=== PATIENT | female | born 1955 | race Caucasian/White ===

== ENCOUNTER → 2017-05-17 12:16 | Outpatient (CLI) | payer OTHER, SELFPAY ==
--- NOTE | 2017-05-17 12:19 | US_ITS ---
STUDY: ULTRASOUND OF THE FEMALE PELVIS - COMPLETE REASON FOR EXAM: Female, 62 years old. Left lower quadrant pain. LMP: The patient is postmenopausal. TECHNIQUE: Transabdominal and Transvaginal TECHNICAL QUALITY: Adequate. COMPARISON: None. FINDINGS: The uterus is anteverted and is in a midline position. The uterus measures 5.8 cm x 3.8 cm x 2.5 cm. There is a large Nabothian cyst of the cervix measuring 2 cm x 2.6 cm x 1.2 cm.. The endometrium measures 1.1 mm in thickness, and is hyperechoic. There is no demonstrated endometrial mass. There is a small uterine fibroid measuring 9 mm x 10 mm x 8 mm. I.U.D. - The patient does not have an I.U.D. The right ovary is visualized. The right ovary measures 1.7 cm x 1.2 cm x 1.6 cm. A follicle is seen within the ovary measuring 1 cm x 1 cm x 0.7 cm. There is no visualized right adnexal mass or complex lesion. There is normal arterial and normal venous vascularity. The left ovary is visualized. The left ovary measures 1.8 cm x 1.9 cm x 1.5 cm. There is no left ovarian cyst or ovarian mass. There is no visualized left adnexal mass or complex lesion. There is normal arterial and normal venous vascularity. There is no fluid in the cul-de-sac. The pre void volume of the bladder was 680 ml. US/Pelvic (Non ) IMPRESSION: Large nabothian cyst. Small uterine fibroid. 1 cm x 1 cm x 0.7 cm right ovarian follicle. Electronically Signed: Kenny Loyola MD at 15:47 EST Tel [phone], Service support ,
--- NOTE | 2017-05-17 12:40 | US_ITS ---
STUDY: ULTRASOUND OF THE FEMALE PELVIS - COMPLETE REASON FOR EXAM: Female, 62 years old. Left lower quadrant pain. LMP: The patient is postmenopausal. TECHNIQUE: Transabdominal and Transvaginal TECHNICAL QUALITY: Adequate. COMPARISON: None. FINDINGS: The uterus is anteverted and is in a midline position. The uterus measures 5.8 cm x 3.8 cm x 2.5 cm. There is a large Nabothian cyst of the cervix measuring 2 cm x 2.6 cm x 1.2 cm.. The endometrium measures 1.1 mm in thickness, and is hyperechoic. There is no demonstrated endometrial mass. There is a small uterine fibroid measuring 9 mm x 10 mm x 8 mm. I.U.D. - The patient does not have an I.U.D. The right ovary is visualized. The right ovary measures 1.7 cm x 1.2 cm x 1.6 cm. A follicle is seen within the ovary measuring 1 cm x 1 cm x 0.7 cm. There is no visualized right adnexal mass or complex lesion. There is normal arterial and normal venous vascularity. The left ovary is visualized. The left ovary measures 1.8 cm x 1.9 cm x 1.5 cm. There is no left ovarian cyst or ovarian mass. There is no visualized left adnexal mass or complex lesion. There is normal arterial and normal venous vascularity. There is no fluid in the cul-de-sac. The pre void volume of the bladder was 680 ml. US/Transvaginal Non- IMPRESSION: Large nabothian cyst. Small uterine fibroid. 1 cm x 1 cm x 0.7 cm right ovarian follicle. Electronically Signed: Kenny Loyola MD at 15:47 EST Tel [phone], Service support ,
== END ==
PROVIDERS: Family Provider Family Medicine; PCP Family Medicine; Visit Provider Obstetrics & Gynecology
DX: R10.2 Pelvic and perineal pain (principal)
CPT/HCPCS: 76830; 76856

== ENCOUNTER → 2017-08-29 11:07 | Outpatient (CLI) | payer OTHER, SELFPAY ==
[2017-08-29 12:07] LABS: Hematocrit 39.9 % (37-47); Hemoglobin 13.3 g/dl (12.0-15.0); Mean Corp Hgb Conc 33.3 g/gl (32-36); Mean Corpuscular Hgb 30.5 pg (27.0-32.0); Mean Corpuscular Volume 91.5 fL (81-99); Mean Platelet Vol. 9.4 fl (6.2-12.0); Platelet Count 286 K/mm3 (150-450); RBC Distribution Width CV 12.7 % (11.6-14.6); RBC Distribution Width SD 41.9 fl (35.1-43.9); Red Blood Count 4.36 M/mm3 (4.2-5.4); White Blood Count 3.1 K/mm3 (4.4-11.0)
[2017-08-29 12:11] LABS: Scan Indicated on CBC? Y/N NO
[2017-08-29 13:28] LABS: AST(SGOT) 13 U/L (15-37); Alanine Aminotransfer ALT/SGPT 21 U/L (13-56); Albumin, Serum 3.8 g/dL (3.2-5.0); Alkaline Phosphatase 84 U/L (45-117); Anion Gap 8 (5-15); BUN 22 mg/dL (7-18); BUN/Creat Ratio 28.6 RATIO (10-20); Calcium,Total 9.1 mg/dL (8.5-10.1); Chloride 108 mmol/L (98-107); Cholesterol 227 mg/dL (200); Creatinine, Serum 0.77 mg/dL (0.55-1.02); EST Glomerular Filtration Rate 81 mL/min (>60); Est Glom Filt Rate - Afr Amer 98 mL/min (>60); Globulin 3.8 g/dL (2.2-4.2); Glucose 84 mg/dL (74-106); High Density Lipoprotein 54 mg/dL; Potassium 4.3 mmol/L (3.5-5.1); Protein, Total 7.6 g/dL (6.4-8.2); Sodium Level 141 mmol/L (136-145); Triglycerides 185 mg/dL; Very Low Density Lipoprotein 37 mg/dL (5-40)
== END ==
PROVIDERS: Family Provider Family Medicine; PCP Family Medicine; Visit Provider Family Medicine
DX: Z00.00 Encounter for general adult medical examination without abnormal findings (principal); R07.89 Other chest pain
CPT/HCPCS: 36415; 80053; 80061; 84443; 85027

== ENCOUNTER → 2017-10-01 11:56 | Outpatient (CLI) | payer OTHER, SELFPAY ==
--- NOTE | 2017-10-01 17:21 | STRESSREP ---
Stress Test Report Exercise stress test. 62-year-old lady with a history of chest pain. Medications Wellbutrin. Stress protocol resting EKG demonstrates sinus bradycardia with a rate of 55 bpm normal intervals and noted resting blood pressures 116/72 mmHg. The patient exercised according to regular Brad protocol for total duration of 5 minutes the maximum heart rate attained was 139 bpm which is 83% maximum predicted heart rate the maximum workload was 6.9 metabolic equivalents. The patient maintained sinus rhythm throughout the recording at rest there were no ST or T-wave changes noted suggest ischemia peak exercise upsloping ST changes only were noted with no meet the criteria for ischemia. The resting blood pressure is 116/72 with a peak blood pressure 146/70 mmHg. No clinical angina was noted the test was terminated due to leg fatigue there was dyspnea also noted. Conclusion 1 Stress test with no EKG criteria for ischemia at a moderate workload Marked shortness of breath.
== END ==
PROVIDERS: Family Provider Family Medicine; PCP Family Medicine; Visit Provider Family Medicine
DX: R07.89 Other chest pain (principal)
CPT/HCPCS: 93017

== ENCOUNTER 2018-04-10 07:37 | Day surgery (SDC) | payer OTHER, SELFPAY ==
[2018-04-08 16:21] VITALS: BMI 27.2
--- NOTE | 2018-04-09 10:20 | RAD_ITS ---
HISTORY: Short of Breath/Dyspnea EXAM:XR Chest 2 Views: COMPARISON: None FINDINGS: Normal heart size. Possible upper lobe emphysema.. No vascular congestion, pleural effusion, or acute pulmonary infiltration. No pneumothorax. The bony thorax appears intact. RAD/Chest PA and Lateral IMPRESSION: 1. No acute cardiopulmonary disease. 2. Possible upper lobe emphysema. at [id number] Reported and signed by: Stephen Martinez MD Electronically Signed: Stephen Martinez, at 4:38 EST Tel , Service support ,
--- NOTE | 2018-04-09 11:00 | ECHOD_ITS ---
Reason For Study: CP Procedure This was a 2D Doppler, Color Flow transthoracic echocardiogram. The study was technically difficult. Exam performed in department. Left Ventricle Normal LV size. Segmental dysfunction with preserved ejection fraction (see wall motion). The estimated ejection fraction is 55 %. No evidence for diastolic dysfunction. Mid-inferoseptal : Hypokinetic. Mid-anteroseptal : Hypokinetic. Right Ventricle Normal RV size. Normal systolic function. Atria The left atrium is mildly enlarged. Normal right atrium. No doppler evidence for ASD. Mitral Valve There is no mitral annular calcification. Normal mitral valve. Trivial mitral valve insufficiency. Tricuspid Valve Normal tricuspid valve. Mild tricuspid valve insufficiency. Right ventricular systolic pressure estimated to be 16 mmHg. Aortic Valve Trisinus/trileaflet aortic valve. Normal aortic valve. Trivial aortic valve insufficiency. Pulmonic Valve The pulmonic valve is not well visualized. Great Vessels Normal sized aortic root. Pericardium/Pleural No pericardial effusion. MMode/2D Measurements & Calculations LVIDd: 4.0 cm IVSd: 1.6 cm LA dimension: 3.6 cm LVIDs: 2.7 cm LVPWd: 0.96 cm RVDd: 3.8 cm FS: 33.0 % LAV(MOD-sp4): 66.4 ml LA A4 area: 21.6 cm2 RA A4 area: 17.1 cm2 Time Measurements MV dec time: 0.41 sec Doppler Measurements & Calculations MV E max blaine: 46.6 cm/sec Lat Peak E' Blaine: 5.6 cm/sec Med Peak E' Blaine: 5.9 cm/sec MV A max blaine: 66.3 cm/sec E/E' lat: 8.4 E/E' med: 7.8 MV E/A: 0.70 MV V2 max: 70.1 cm/sec MV P1/2t max blaine: 54.0 cm/sec Ao V2 max: 79.6 cm/sec MV max P.0 mmHg MV P1/2t: 152.2 msec Ao max P.5 mmHg MV V2 mean: 33.7 cm/sec MV dec slope: 104.0 cm/sec2 MV mean P.57 mmHg MVA(P1/2t): 1.4 cm2 MV V2 VTI: 30.0 cm LV V1 max: 67.9 cm/sec PA V2 max: 65.2 cm/sec TR max blaine: 181.3 cm/sec LV V1 max P.8 mmHg TR max P.1 mmHg Interpretation Summary The study was technically difficult. Segmental dysfunction with preserved ejection fraction (see wall motion). The estimated ejection fraction is 55 %. The left atrium is mildly enlarged. Trivial mitral valve insufficiency. Mild tricuspid valve insufficiency. Trivial aortic valve insufficiency. Right ventricular systolic pressure estimated to be 16 mmHg. No evidence for diastolic dysfunction. Ordering Physician: Otoniel Campbell Referring Physician: Otoniel Campbell Performed By: Davide Parikh RCS
[2018-04-09 11:10] LABS: Absolute Lymphocyte Count 1.66 X10^3/ul (0.83-4.51); Absolute Neutrophil Count 1.7 X10^3/uL (2.0-7.7); Basophil# 0.04 X10^3/uL; Eosinophil# 0.23 X10^3/uL; Eosinophils% 5.9 % (0-5); Hematocrit 41.5 % (37-47); Hemoglobin 13.3 g/dl (12.0-15.0); Lymphocyte # 1.66 X10^3/ul (4.0); Lymphocyte % 42.2 % (19-41); Mean Corpuscular Hgb 30.2 pg (27.0-32.0); Mean Corpuscular Volume 94.1 fL (81-99); Mean Platelet Vol. 9.7 fl (6.2-12.0); Monocyte# 0.32 X10^3/uL; Monocyte% 8.1 % (0-10); Neutrophil # 1.67 X10^3/uL (2.7-7.7); Neutrophil % 42.5 % (47-70); Platelet Count 270 K/mm3 (150-450); RBC Distribution Width CV 12.9 % (11.6-14.6); RBC Distribution Width SD 44.4 fl (35.1-43.9); Red Blood Count 4.41 M/mm3 (4.2-5.4); White Blood Count 3.9 K/mm3 (4.4-11.0)
[2018-04-09 11:15] LABS: POSITIVE COUNT NO; POSITIVE DIFFERENTIAL NO; POSITIVE MORPHOLOGY NO
[2018-04-09 11:18] LABS: International Normalized Ratio 0.9; Prothrombin Time (Protime)PT. 12.3 SECONDS (11.7-14.9)
[2018-04-09 11:19] LABS: Partial Thromboplast Time 26.9 Seconds (24.1-36.2)
[2018-04-09 11:30] LABS: Anion Gap 6 (5-15); BUN 23 mg/dL (7-18); BUN/Creat Ratio 21.9 RATIO (10-20); Calcium,Total 9.1 mg/dL (8.5-10.1); Chloride 104 mmol/L (98-107); Creatinine, Serum 1.05 mg/dL (0.55-1.02); EST Glomerular Filtration Rate 57 mL/min (>60); Est Glom Filt Rate - Afr Amer 69 mL/min (>60); Glucose 93 mg/dL (74-106); Potassium 4.6 mmol/L (3.5-5.1); Sodium Level 139 mmol/L (136-145)
[2018-04-09 12:43] VITALS: BMI 27.2
[2018-04-10] VITALS (21 sets, daily range): BP systolic 89–122; BP diastolic 46–81; PULSE 14–72; RESP 10–25; TEMP 36.5–36.6; O2SAT 95–100; BMI 27.3
[2018-04-10 10:36] LABS: ACT Activated Clotting Time 164 sec (74-137)
--- NOTE | 2018-04-10 10:46 | CL.I_ITS ---
Patient Name: GAL BOURGEOIS Study Date: 04/10/2018 Performing: Satinder Thompson MD Ht: 66.92 inches 170 cm : 1955 Wt: 174.17 lbs 79 kg Age: 63 Gender: female BSA: 1.91 PROCEDURE(S) PERFORMED [id number] W OR WO PTCA, SINGLE CORONARY ARTERY [id number], EACH ADD'L CORONARY ART, SAME MAJOR CLINICAL PROFILE AND CO-MORBIDITIES Indications: Worsening Angina, Suspected CAD, New Onset Angina <= 2 months, Suspected CAD Heart Failure: None Stress/Imaging Standard Exercise Stress Test: Yes Result: Negative Stress Test with SPECT MPI: Po sitive High Risk Angina Classification Anginal Classification w/in 2 Weeks: CCS IV CAD Presentations: Unstable angina. Unstable angina. Comorbidities/Risk Factors: Current/Recent Smoker (< 1year) Hypertension Dyslipidemia Chronic Lung Disease CONCLUSIONS Successful PTCA/OMER proximal/mid LAD with a 2.5 x 28 Promus Synergy, post dilated proximally with a 3 .5 x 12 NC Balloon; 90%-->0%, no dissection. Successful PCI with PTCA to the ostial/proximal DIAG#1 with a 2.0 x 12; 75%-->50%, no dissection. Wo uld hold off on bifurcating stents at this time given <50% residual stenosis, and challenges with acc essing LAD with second wire. RECOMMENDATIONS Highly recommend quitting all tobacco products Follow up with primary manager zone Risk factor modification ASA Indefinitley Plavix for at least 12 months Routine post interventional care Refer for Outpatient Cardiac Rehab Manual sheath removal per protocol Follow up with Dr. Campbell Medical management of mid RCA unless or until pt has recurrent symptoms or inferior ischemia. Successful Mynx closure. DESCRIPTION OF PROCEDURE The patient arrived to the procedure lab. The risks and benefits of the procedure as well as a full d escription of our services here and current unavailability of surgical backup were fully explained to the patient and/or their significant other prior to the catheterization. The Timeout was completed, verifying the correct patient and procedure. The patient's procedural site was prepped and draped in the usual fashion. Local anesthetic was given subcutaneously to right groin region with Lidocaine 2% Using a modified Seldinger technique,arterial access was obtained via the right femoral artery, a 4Fr sheath was inserted Left Coronary Artery selective angiography was performed in multiple views using a 4 Fr. JL5 catheter. Right Coronary Artery selective angiography was then performed in multiple vie ws using a 4 Fr. 3DRC catheter. Left Ventriculography was performed in GALEANO projection using a 4 Fr. P igtail catheter. LV to AO pullback pressures were then recorded.The images were reviewed and options discussed. A decision was then made to proceed with an Intervention, IVUS or other adjunc t procedure. Arterial sheath was exchanged for a 6 Fr x 45 cm Sheath. ebu 3.5 Guide catheter was inserted and engaged into the LCA. bmw Guide wire was advanced to the LAD. Angiogram performed pre balloon dilatat ion. emerge 2.00 x12 Balloon catheter was advanced across lesion in the LAD, proximal. PTCA balloon inflated at 6 atms for 10 secs. PTCA balloon inflated at 6 atms for 9 secs. Angiogram performed post balloon dilatation. synergy 2.5 x 28 Drug Eluting stent was advanced across the lesion in the LAD, pr oximal. nc emerge 3.5 x 12 Balloon catheter was inserted post stent. Angiogram performed post balloon dilatation. Balloon catheter was advanced across lesion in the first diagonal, ostial. PTCA balloon inflated at 8 atms for 15 secs. PTCA balloon inflated at 8 atms for 28 secs. Angiogram performed post balloon dilatation. Contrast was injected through the sheath and the Right Iliac and Femoral artery were assessed for possible closure device. The arterial sheath was pulled and a Mynx closure device was deployed for hemostasis INTERVENTION INFORMATION LESION SITE: LAD (Proximal) Lesion Complexity: High/C, lesion at bifurcation: Yes, thrombus present: No, lesion length: 28 mm, cu lprit lesion: Yes Pre Stenosis: 90 % PROCEDURE: Drug Eluting Stent with pre and post dilatation Post Stenosis: 0 % Post intervention DIANA flow: 2 Lesion Devices: Yinka Sci EMERGE MR 2.00x12 BALLOON Menard .014 BMW [place] Straight 190cm Terumo .014 Runthrough Extra Floppy 180cm straight Yinka Sci Synergy MR OMER 2.50x28 Yinka Sci NC EMERGE MR 3.50x12 BALLOON LESION SITE: 1st Diagonal (Ostial) Lesion Complexity: Non-High/Non-C, lesion at bifurcation: Yes, thrombus present: No, lesion length: 1 2 mm, culprit lesion: No Pre Stenosis: 75 % Pre intervention DIANA flow: 3 PROCEDURE: Balloon Angioplasty Post Stenosis: 50 % Post intervention DIANA flow: 3 Lesion Devices: Yinka Sci EMERGE MR 2.00x12 BALLOON Menard .014 BMW [place] Straight 190cm COMPLICATIONS No Complications PROCEDURE MEDICATIONS Versed 1 mg IV Oxygen: 2 L/min via nasal cannula Heparin 6000 unit(s) IV 04/10/2018 09:48:08 Nitro 200 mcg IC 04/10/2018 09:49:29 Nitro 200 mcg IC 04/10/2018 09:49:29 SUMMARY OF HEMODYNAMIC DATA Time AIR REST ECG 07:57:11 ECG 07:57:21 AO 95/61 (76) SA 09:28:32 LV 98/-4, 16 09:35:36 LV 103/-1, 14 09:35:42 LV 114/2, 18 09:36:51 LV 106/0, 13 09:36:58 LVp 96/1, 8 09:37:05 AOp 98/56 (74) 09:37:10 Signed By Satinder Thompson MD On 04/10/2018 10:44:47 Satinder Thompson MD
[2018-04-10] MEDS: 0.9% Normal Saline 1,000 ML 150 ML IV (11:00)
--- NOTE | 2018-04-10 11:28 | EKG12_ITS ---
Test Reason : POST PCI Blood Pressure : / mmHG Vent. Rate : 058 BPM Atrial Rate : 058 BPM P-R Int : 212 ms QRS Dur : 080 ms QT Int : 474 ms P-R-T Axes : 050 -08 042 degrees QTc Int : 465 ms Sinus bradycardia with marked sinus arrhythmia with 1st degree A-V block Low voltage QRS Nonspecific T wave abnormality Prolonged QT Abnormal ECG No previous ECGs available Confirmed by LESLEY LEES, FERNANDO ([id number]), map editor CAMELIA GRAYSON ([id number]) on 04/15/2018 10:28:23 AM Referred By: Otoniel Campbell Confirmed By:FERNANDO SUTTON MD
--- NOTE | 2018-04-10 13:56 | CRPHASE1 ---
Patient Data/Charges Phase II Referral:: [facility] - AT BEDSIDE Start Phase II:: FOLLOWING CARDIOLOGY OFFICE VISIT Risk Factors/Lifestyle Smoking Status: Former smoker Hx Hypertension: No Hx Diabetes Mellitus Type 1: No Hx Diabetes Mellitus Type 2: No Hx Metabolic Disorders: No Hx Dyslipidemia: Yes Hx Obesity: No Height: 5 ft 7 in - BMI 27.3 Post-Menopausal: Yes Stress: Home/Family Risk Factor for Sedentary Lifestyle: Moderate Risk Family History: Family History (Last Reviewed 04/08/18 @ 16:27 by Marlyn Alejandro) Mother Heart disease Father CAD (coronary artery disease) History of coronary artery bypass surgery Congestive heart failure (CHF) Past Cardiac Illness: Coronary Artery Disease, Previous PCI w/Stent Phase I Education Given On:: [place], Nutrition, Antiplatelet medication Issues Affecting Care:: None Knowledge of Condition:: Yes Learning Preferences: Verbal, Written Hospital Course Presenting Symptoms:: UNSTABLE ANGINA Medical/Surgical History MA:: No Angina:: Yes - UNSTABLE CAD:: Yes Diabetes:: No Diabetes Type I:: No Diabetes Type II:: No Hypertension:: No Dyslipidemia:: Yes PTCA:: Yes Discharge/Home/Social Eval Discharge Disposition: Home Marital Status:
--- NOTE | 2018-04-10 13:58 | CRPH1.INSTRU ---
General Education CAD and cardiac anatomy and function:: Patient communicates acknowledgment, Family communicates acknowledgment Explanation of diagnoses and procedures:: Patient communicates acknowledgment, Family communicates acknowledgment Sign/Symptoms of IN:: Patient communicates acknowledgment, Family communicates acknowledgment Antiplatelet therapy: Patient communicates acknowledgment, Family communicates acknowledgment Proper use of NTG-SL: Not instructed Emergency procedures and activation of EMS: Patient communicates acknowledgment, Family communicates acknowledgment Compliance of all prescribed medications: Patient communicates acknowledgment, Family communicates acknowledgment - AT BEDSIDE Smoking Recommendations Include:: Previous smoker; encourage continued cessation Nicotine/Smoking Response Code:: Patient communicates acknowledgment, Family communicates acknowledgment Dyslipidemia Patient Dyslipidemia Risk Factors Are:: Total Cholesterol, Triglycerides, HDL, LDL Recommendations Include:: Lipid profile provided, Reviewed NCEP/ATP guidelines, Therapeutic Lifestyle Change dietary guidelines Dyslipidemia Response Code:: Patient communicates acknowledgment, Family communicates acknowledgment Overweight/Obesity Patient Overweight/Obesity Risk Factors Are:: Overweight = 26-29 Recommendations Include:: Weight loss of 5-10%, Reduced calorie diet, Exercise 5-7 times/week Overweight/Obesity:: Patient communicates acknowledgment, Family communicates acknowledgment Hypertension Patient Hypertension Risk Factors Are:: No documented hx of HTN Heart Disease Patient Heart Disease Risk Factors Are:: Previous cardiac event Heart Disease Response Code:: Patient communicates acknowledgment, Family communicates acknowledgment Diabetes Patient Diabetes Risk Factors Are:: No documented hx of diabetes Metabolic Syndrome Recommendations Include:: Does not meet criteria Sedentary Patient Sedentary Risk Factors Are:: Lack of regular exercise Recommendations Include:: Aerobic exercise 5-7 times/week for 20-30 minutes continuously, Benefits of regular exercise, Discussed home walking program, Monitored Outpatient Cardiac Rehab Sedentary Response Code:: Patient communicates acknowledgment, Family communicates acknowledgment Stress Recommendations Include:: Identification of stressors, and assessment of coping skills, Stress management techniques Stress Response Code:: Patient communicates acknowledgment, Family communicates acknowledgment
--- NOTE | 2018-04-10 19:06 | CL.D_ITS ---
Patient Name: GAL BOURGEOIS Study Date: 04/10/2018 Performing: Otoniel Campbell MD Ht: 66.93 inches 170 cm : 1955 Wt: 174.17 lbs 79 kg Age: 63 Gender: female BSA: 1.91 PROCEDURE(S) PERFORMED RY62-LTC/COR/LV RI27-ICD W OR WO PTCA, SINGLE CORONARY ARTERY [id number], EACH ADD'L CORONARY ART, SAME MAJOR CLINICAL PROFILE AND INDICATIONS Indications: Worsening Angina, Suspected CAD, New Onset Angina <= 2 months, Suspected CAD Heart Failure: None Stress/Imaging Standard Exercise Stress Test: Yes Result: NegativeStress Test with SPECT MPI: Pos itive High Risk Angina Classification Anginal Classification w/in 2 Weeks: CCS IV CAD Presentations: Unstable angina. Unstable angina. Comorbidities/Risk Factors: Current/Recent Smoker (< 1year) Hypertension Dyslipidemia Chronic Lung Disease CONCLUSIONS Elevated Left Ventricular End Diastolic Pressure LV regional wall motion abnormalities with overall preserved LV systolic function LVEF: by LV gram 55 % [place] Multivessel CAD RECOMMENDATIONS Risk factor modification Medical therapy Referred for immediate PCI DESCRIPTION OF PROCEDURE The patient arrived to the procedure lab. The risks and benefits of the procedure as well as a full d escription of our services here and current unavailability of surgical backup were fully explained to the patient and/or their significant other prior to the catheterization. The Timeout was completed, verifying the correct patient and procedure. The patient's procedural site was prepped and draped in the usual fashion. Local anesthetic was given subcutaneously to right groin region with Lidocaine 2%. Using a modified Seldinger technique, arterial access was obtained via the right femoral artery, a 4 Fr sheath was inserted Left Coronary Artery selective angiography was performed in multiple views us ing a 4 Fr. JL5 catheter. Right Coronary Artery selective angiography was then performed in multiple views using a 4 Fr. 3DRC catheter. Left Ventriculography was performed in GALEANO projection using a 4 Fr . Pigtail catheter. LV to AO pullback pressures were then recorded.Contrast was injected through the sheath and the Right Iliac and Femoral artery were assessed for possible closure device.T he arterial sheath was pulled and a Mynx closure device was deployed for hemostasis CORONARY ANGIOGRAPHY DOMINANCE: Right Dominant LEFT HEART ASSESSMENT Left Ventricular Ejection Fraction: by LV Gram 55 % Anterior Hypokinesis - Mild Elevated Left Ventricular End Diastolic Pressure LVEDP: 16 mmHg LEFT MAIN: Angiographically normal LEFT ANTERIOR DECENDING ARTERY: PROX LAD: 99 % Stenosis MID LAD: S/P DX1: 50 % Stenosis DIAGONAL 1: Proximal - 50 % Stenosis CIRCUMFLEX ARTERY: Angiographically normal RIGHT CORONARY ARTERY: MID RCA: Diffuse: Irregular: 50 % Stenosis COLLATERAL FLOW: Collateral flow from Right to Left VALVE FINDINGS: Normal Aortic Valve function Normal Mitral Valve function AORTIC ROOT: Angiographically normal COMPLICATIONS No Complications PROCEDURE MEDICATIONS Versed 1 mg IV Oxygen: 2 L/min via nasal cannula Heparin 6000 unit(s) IV 04/10/2018 09:48:08 Nitro 200 mcg IC 04/10/2018 09:49:29 Nitro 200 mcg IC 04/10/2018 09:49:29 SUMMARY OF HEMODYNAMIC DATA Time AIR REST ECG 07:57:11 ECG 07:57:21 AO 95/61 (76) SA 09:28:32 LV 98/-4, 16 09:35:36 LV 103/-1, 14 09:35:42 LV 114/2, 18 09:36:51 LV 106/0, 13 09:36:58 LVp 96/1, 8 09:37:05 AOp 98/56 (74) 09:37:10 Signed By Otoniel Campbell MD On 04/10/2018 19:05:25 Otoniel Campbell MD
[2018-04-10] MEDS: Acetaminophen 325 MG Tablet 650 MG PO (19:33)
[2018-04-10] MEDS: Atorvastatin Calcium 80 MG Tablet PO (21:41)
[2018-04-10] MEDS: clonazePAM 0.5 MG Tablet PO (21:45)
[2018-04-11] VITALS (17 sets, daily range): BP systolic 98–132; BP diastolic 54–86; PULSE 54–69; RESP 12–18; TEMP 36.6–36.8; O2SAT 94–98
[2018-04-11 05:08] LABS: Anion Gap 10 (5-15); BUN 15 mg/dL (7-18); BUN/Creat Ratio 15.9 RATIO (10-20); Calcium,Total 8.3 mg/dL (8.5-10.1); Chloride 112 mmol/L (98-107); Cholesterol 212 mg/dL (200); Creatinine, Serum 0.94 mg/dL (0.55-1.02); EST Glomerular Filtration Rate 64 mL/min (>60); Est Glom Filt Rate - Afr Amer 78 mL/min (>60); Estimated Creatinine Clearance 61.12 ml/min; Glucose 121 mg/dL (74-106); High Density Lipoprotein 54 mg/dL; Potassium 3.8 mmol/L (3.5-5.1); Sodium Level 145 mmol/L (136-145); Triglycerides 223 mg/dL; Very Low Density Lipoprotein 45 mg/dL (5-40)
[2018-04-11 05:14] LABS: Hematocrit 36.4 % (37-47); Hemoglobin 11.6 g/dl (12.0-15.0); Mean Corp Hgb Conc 31.9 g/gl (32-36); Mean Corpuscular Hgb 30.1 pg (27.0-32.0); Mean Corpuscular Volume 94.5 fL (81-99); Mean Platelet Vol. 9.4 fl (6.2-12.0); Platelet Count 224 K/mm3 (150-450); RBC Distribution Width CV 13.2 % (11.6-14.6); RBC Distribution Width SD 45.7 fl (35.1-43.9); Red Blood Count 3.85 M/mm3 (4.2-5.4); White Blood Count 4.1 K/mm3 (4.4-11.0)
[2018-04-11 05:52] LABS: Scan Indicated on CBC? Y/N NO
--- NOTE | 2018-04-11 05:55 | EKG12_ITS ---
Test Reason : AM EKG Blood Pressure : / mmHG Vent. Rate : 067 BPM Atrial Rate : 067 BPM P-R Int : 184 ms QRS Dur : 084 ms QT Int : 440 ms P-R-T Axes : 062 -14 090 degrees QTc Int : 464 ms Normal sinus rhythm Nonspecific T wave abnormality Abnormal ECG When compared with ECG of 13-JUL-2012 08:27, T wave inversion now evident in Anterolateral leads Confirmed by LESLEY LEES, FERNANDO ([id number]), assistant production editor CONNOR ANDERS ([id number]) on 04/22/2018 10:05:28 AM Referred By: Otoniel Campbell Confirmed By:FERNANDO SUTTON MD
[2018-04-11] MEDS: buPROPion (XL) 300 MG TABLET.XL PO (08:33)
[2018-04-11] MEDS: Metoprolol Tartrate 25 MG Tablet PO (08:33)
[2018-04-11] MEDS: Clopidogrel Bisulfate 75 MG Tablet PO (08:33)
[2018-04-11] MEDS: Aspirin E.C. 81 MG Tablet PO (08:33)
[2018-04-11] MEDS: Isosorbide Mononitrate 30 MG Tablet PO (08:34)
[2018-04-11] MEDS: clonazePAM 0.5 MG Tablet PO (08:36)
--- NOTE | 2018-04-11 08:42 | DCINST_ITS ---
Discharge Diet: No Restrictions - You may continue your normal diet. May shower in (days): 1 May resume sexual activity in: 1 week - if no groin problems occur. Lifting Restrictions: 10 pounds and also avoid any pushing or pulling for 3 days after your test. Additional Activity Instructions:: You must have someone drive you home. Do not drive until instructed by your doctor. You must have someone stay with you all night after your test. Rest in bed or on the couch until the next morning. Limit the number of times you go up and down stairs the day of your test. Call your doctor if your incision/area has: Increased Pain/ Swelling, Increased Redness, Foul Smelling Discharge, Swelling at the incision site Call your doctor if you observe: Fever of 101 or Higher Remove Dressing in (days):: 1 Additional Dressing/Incision Instructions:: Keep the dressing (bandage) on until the next morning. You may then shower, but do not take a tub bath for 5 days after your test. It is normal to have some tenderness and discomfort at the puncture site. Sometimes bruising also occurs. However, if pain, numbness, or coldness occurs below the puncture site (in your leg, toes, arms or fingers) call your doctor at once. You may have a small, marble sized knot at the puncture site. This is normal. Do not rub it. It will go away in 4-6 weeks. Bleeding can occur from the area where the puncture was done. Blood may spurt or drip from the site. If blood spurts, apply pressure right away to stop bleeding and call 911. Although rare, bleeding into the tissue (hematoma) can also occur. If this happens, a large, firm area goose egg under the skin will appear. If any of these occur, lie down as flat as you can and have someone apply firm pressure to the cath site with a gauze pad or a clean washcloth for 10-15 minutes. Call 911 or go to the Emergency Department. Additional Instructions: You were started on a cholesterol lowering medication we can further discuss this at your next visit. You will need to have labs monitored with this You will need to stay on your plavix for at least one year. Allergies/Adverse Reactions: Allergies No Known Allergies Allergy (Verified 04/08/18 16:21) Medications to take at Discharge albuterol sulfate HFA 90 mcg/actuation aerosol inhaler 2 puff INHALATION Q4H PRN g 04/08/18 aspirin 81 mg tablet,delayed release 81 mg PO DAILY #30 tab 04/08/18 budesonide-formoterol HFA 160 mcg-4.5 mcg/actuation aerosol inhaler 2 puff INHALATION BID 04/08/18 bupropion HCl XL 300 mg 24 hr tablet, extended release 300 mg PO QAM 04/08/18 clonazepam 0.5 mg tablet 0.5 mg PO BID 04/08/18 clopidogrel 75 mg tablet 75 mg PO DAILY #30 tab 04/08/18 isosorbide mononitrate ER 30 mg tablet,extended release 24 hr 30 mg PO QAM #30 tab 04/08/18 metoprolol tartrate 25 mg tablet 25 mg PO BID #60 tab 04/08/18 nitroglycerin 0.4 mg sublingual tablet 0.4 mg SUBLINGUAL Q5-15M PRN #90 tab 04/08/18 Nitroglycerin [Nitrostat] 0.4 mg SUBLINGUAL Q5M PRN 04/09/18 Atorvastatin Calcium [Lipitor] 80 mg PO QHS #30 tablet 04/11/18 atorvastatin 80 mg tablet 80 mg PO QPM #30 tab 04/11/18 The following prescriptions were given: Atorvastatin Calcium [Lipitor] 80 mg PO QHS #30 tablet Primary Care Physician: Antonio Santacruz MD [Primary Care Provider] - Test Results: Test results from this visit will be discussed in further detail at your follow- up appointment, if applicable. Please Follow Up With: Marlyn Lennon PA When: 04/23 at 2pm Cardiac Rehabilitation Info Cardiac Rehabilitation Program Information: Cardiac Rehabilitation is important for patients like you who are recovering from a heart problem. Cardiac rehabilitation programs are recognized as integral to the continued care of the patient with coronary heart disease. The cardiac rehabilitation program is designed to optimize a patient's physical, psychological, and social functioning. Health medicare nurse work in cardiac rehabilitation programs and assist you with getting the treatments you need to get stronger and healthier - like exercise, healthy eating habits, and medications. Cardiac rehabilitation has been show to help people with heart problems live longer and have better life enjoyment than people who do not go to cardiac rehabilitation. Please contact the Cardiac Rehabilitation Program at [facility] at in two weeks if you have not heard from them.
--- NOTE | 2018-04-11 09:51 | PCM.DC.SUM ---
Discharge Date and Diagnosis Date of Admission: 04/10/18 Date of Discharge: 04/11/18 - Primary Discharge Diagnosis CAD status post LAD PCI - Secondary Discharge Diagnosis Chronic Problems (Last Updated 04/10/18 @ 11:19 by Ayleen Ruggiero) Stented coronary artery (Chronic 04/10/18) OMER to proximal-mid LAD (2.5 X 28 Promus Synergy), POBA to ostial proximal Diagonal #[address] Thompson @ [facility] Atherosclerotic heart disease of [place] coronary artery without angina pectoris (Chronic) OMER to proximal-mid LAD (2.5 X 28 Promus Synergy), POBA to ostial proximal Diagonal #[address] Thompson @ [facility] Hospital Course and Treatment Procedures: Cardiac catheterization, - - Cardiac intervention: LAD PCI Summary of Care Provided: The patient is a 63 year old who presented for concerns of angina pectoris, and abnormal ECG, for further evaluation with diagnostic cardiac catheterization. The cardiac catheterization demonstrated angiographically significant appearing LAD disease. The patient subsequently underwent LAD PCI. She was monitored in the ICU overnight. She appeared to be symptomatically and hemodynamically stable. It was felt the patient was stable to be released home for continued outpatient cardiovascular follow-up and outpatient cardiac rehabilitation. [] Subjective: states she is feeling better overall. Objective: Cardiac rhythm: Sinus rhythm; 2 brief episodes of a somewhat irregular narrow complex tachycardia appearing compatible with an ectopic atrial rhythm/tachycardia (no associated symptoms or hemodynamic compromise) - Physical Exam General: Alert, Oriented x3, Cooperative, No apparent distress HEENT: Atraumatic, PERRLA, EOMI, Normocephalic Oral: Moist Mucosa Neck: Supple, No JVD Lungs: Clear to auscultation Cardiovascular: Regular rate, Regular Rhythm, Normal S1, Normal S2 Abdomen: Bowel Sounds Present, Soft, Non Tender Extremities: No clubbing, No cyanosis, No edema Musculoskeletal: - - Right inguinal area: Pulses 2+/4+; no bruit; no hematoma Psych/Mental Status: Appropriate Vital Signs Temp Pulse Resp BP Pulse Ox 98.2 F 61 12 120/85 H 97 04/11/18 07:00 04/11/18 08:33 04/11/18 08:00 04/11/18 08:00 04/11/18 08:00 Oxygen Delivery Method Room Air Weight: 174 lb 9.698 oz Body Mass Index (BMI) 27.3 Intake and Output for Last 24 Hours 04/09/18 04/10/18 04/11/18 23:59 23:59 23:59 Intake Total 1400 / 1400 600 / 600 Balance 1400 / 1400 600 / 600 Laboratory Tests Past 24 Hrs 04/10/18 04/11/18 04/11/18 10:26 04:30 04:30 WBC 4.1 L RBC 3.85 L Hgb 11.6 L Hct 36.4 L MCV 94.5 MCH 30.1 MCHC 31.9 L RDW 13.2 RDW Differential 45.7 H Plt Count 224 MPV 9.4 Activated Clotting Time 164 H Sodium 145 Potassium 3.8 Chloride 112 H Carbon Dioxide 23.0 Anion Gap 10 BUN 15 Creatinine 0.94 Estim Creat Clear Calc 61.12 Est GFR (MDRD) Af Amer 78 Est GFR (MDRD) Non-Af 64 BUN/Creatinine Ratio 15.9 Glucose 121 H Calcium 8.3 L Triglycerides 223 H Cholesterol 212 H LDL Cholesterol 113 VLDL Cholesterol 45 H HDL Cholesterol 54 Discharge Diet: No Restrictions - You may continue your normal diet. May shower in (days): 1 May resume sexual activity in: 1 week - if no groin problems occur. Additional Activity Instructions:: You must have someone drive you home. Do not drive until instructed by your doctor. You must have someone stay with you all night after your test. Rest in bed or on the couch until the next morning. Limit the number of times you go up and down stairs the day of your test. Call your doctor if your incision/area has: Increased Pain/ Swelling, Increased Redness, Foul Smelling Discharge, Swelling at the incision site Call your doctor if you observe: Fever of 101 or Higher Remove Dressing in (days):: 1 Additional Dressing/Incision Instructions:: Keep the dressing (bandage) on until the next morning. You may then shower, but do not take a tub bath for 5 days after your test. It is normal to have some tenderness and discomfort at the puncture site. Sometimes bruising also occurs. However, if pain, numbness, or coldness occurs below the puncture site (in your leg, toes, arms or fingers) call your doctor at once. You may have a small, marble sized knot at the puncture site. This is normal. Do not rub it. It will go away in 4-6 weeks. Bleeding can occur from the area where the puncture was done. Blood may spurt or drip from the site. If blood spurts, apply pressure right away to stop bleeding and call 911. Although rare, bleeding into the tissue (hematoma) can also occur. If this happens, a large, firm area goose egg under the skin will appear. If any of these occur, lie down as flat as you can and have someone apply firm pressure to the cath site with a gauze pad or a clean washcloth for 10-15 minutes. Call 911 or go to the Emergency Department. Home Medications: Medications to take at Discharge albuterol sulfate HFA 90 mcg/actuation aerosol inhaler 2 puff INHALATION Q4H PRN g 04/08/18 aspirin 81 mg tablet,delayed release 81 mg PO DAILY #30 tab 04/08/18 budesonide-formoterol HFA 160 mcg-4.5 mcg/actuation aerosol inhaler 2 puff INHALATION BID 04/08/18 bupropion HCl XL 300 mg 24 hr tablet, extended release 300 mg PO QAM 04/08/18 clonazepam 0.5 mg tablet 0.5 mg PO BID 04/08/18 clopidogrel 75 mg tablet 75 mg PO DAILY #30 tab 04/08/18 isosorbide mononitrate ER 30 mg tablet,extended release 24 hr 30 mg PO QAM #30 tab 04/08/18 metoprolol tartrate 25 mg tablet 25 mg PO BID #60 tab 04/08/18 nitroglycerin 0.4 mg sublingual tablet 0.4 mg SUBLINGUAL Q5-15M PRN #90 tab 04/08/18 Nitroglycerin [Nitrostat] 0.4 mg SUBLINGUAL Q5M PRN 04/09/18 Atorvastatin Calcium [Lipitor] 80 mg PO QHS #30 tablet 04/11/18 atorvastatin 80 mg tablet 80 mg PO QPM #30 tab 04/11/18 Following Prescrptions Were Given to Patient: Atorvastatin Calcium [Lipitor] 80 mg PO QHS #30 tablet Other Amb Orders: Phase II, Outpatient Cardiac Rehab Location: None Selected Primary Care Physician: Antonio Santacruz MD [Primary Care Provider] - Please Follow Up With: Marlyn Lennon PA When: 04/23 at 2pm Additional Instructions: You were started on a cholesterol lowering medication we can further discuss this at your next visit. You will need to have labs monitored with this You will need to stay on your plavix for at least one year. Minutes spent on discharge:: 45 Patient Condition:: Stable Medical Necessity - Tobacco Use Smoking Status: Former smoker Meaningful Use Info Meaningful Use Diagnoses (Choose all that apply): None applicable
== END 2018-04-11 12:10 | disposition home or self-care (01) ==
LOC: CVS 07:37 → CLSP 07:40 → ICU 04-11 07:09
PROVIDERS: Internal Medicine Cardiovascular Disease; Family Provider Family Medicine; PCP Family Medicine; Referring Provider Internal Medicine Cardiovascular Disease; Visit Provider Internal Medicine Cardiovascular Disease
DX: I25.10 Atherosclerotic heart disease of native coronary artery without angina pectoris (principal); I10 Essential (primary) hypertension; E78.5 Hyperlipidemia, unspecified; J98.4 Other disorders of lung; R53.83 Other fatigue; R06.09 Other forms of dyspnea; R07.9 Chest pain, unspecified; R94.31 Abnormal electrocardiogram [ECG] [EKG]; Z87.891 Personal history of nicotine dependence
CPT/HCPCS: 36415; 71046; 80048; 80061; 85025; 85027; 85347; 85610; 85730; 92921; 92928; 93005; 93306; 93458; 99152; 99153; C1760; J7030; J7040; Q9967; C1725; C1769; C1874; C1887; C1894; C9600

== ENCOUNTER → 2018-04-18 09:03 | Outpatient (CLI) | payer OTHER, SELFPAY ==
[2018-04-10 11:43] VITALS: BMI 27.3
--- NOTE | 2018-04-18 12:07 | PCM.CR.HP2 ---
CR - History & Physical - General Arrival date:: 04/18/18 Arrival time:: 09:00 Date of Referral:: 04/11/18 Date of CR Evaluation:: 04/18/18 Referring Physician: DR. REYNOSO Primary Diagnosis: PCI WITH STENT - History of Present Cardiac Event Onset Date: Enter Onset Date of cardiac illnesses in Comment field below Current stable Angina Pectoris:: No Acute Myocardial Infarction within 12 months:: No Coronary Artery Bypass Graft:: No Heart valve replacement or repair:: No PTCA or coronary stenting:: Yes Heart or Heart-Lung Transplant:: No Type of Symptoms:: SOB, CP (CLAMP/SQWEEZINF), FATIGUE - Medications Home Medications: Ambulatory Orders Medication Instructions Recorded albuterol sulfate HFA 90 2 puff INHALATION Q4H PRN g 04/08/18 mcg/actuation aerosol inhaler aspirin 81 mg tablet,delayed 81 mg PO DAILY #30 tab 04/08/18 release budesonide-formoterol HFA 160 2 puff INHALATION BID 04/08/18 mcg-4.5 mcg/actuation aerosol inhaler bupropion HCl XL 300 mg 24 hr 300 mg PO QAM 04/08/18 tablet, extended release clonazepam 0.5 mg tablet 0.5 mg PO BID 04/08/18 clopidogrel 75 mg tablet 75 mg PO DAILY #30 tab 04/08/18 isosorbide mononitrate ER 30 mg 30 mg PO QAM #30 tab 04/08/18 tablet,extended release 24 hr metoprolol tartrate 25 mg tablet 25 mg PO BID #60 tab 04/08/18 nitroglycerin 0.4 mg sublingual 0.4 mg SUBLINGUAL Q5-15M PRN #90 04/08/18 tablet tab Nitroglycerin [Nitrostat] 0.4 mg SUBLINGUAL Q5M PRN 04/09/18 Atorvastatin Calcium [Lipitor] 80 mg PO QHS #30 tablet 04/11/18 atorvastatin 80 mg tablet 80 mg PO QPM #30 tab 04/11/18 - Allergies Allergies/Adverse Reactions: Allergies No Known Allergies Allergy (Verified 04/08/18 16:21) - Sleep Disorder Evaluation Hx of Sleep Apnea: No Do you snore loudly (louder than talking or can be heard through closed doors)?: Yes Do you often feel tired/ fatigued/ sleepy during daytime?: Yes Has anyone observed you stop breathing during sleep?: Yes History of Hypertension (for STOP score): No - PT WOULD LIKE TO BE EVALUATED FOR SLEEP APNEA STOP Results: Positive Advanced Directives - Advanced Directives Power of Conduit Reamer Operator: Yes Living Will: Yes Advance Directives on File: No - PT IS UNSURE OF EXACT PAPERS AT HOME, ENCOURAGED TO BRING IN (MED REC) DNR Order?:: No Past Medical History - Past Medical Illness Medical History: Past Medical History (Last Updated 04/10/18 @ 11:19 by Ayleen Ruggiero) Atherosclerotic heart disease of [place] coronary artery without angina pectoris (Chronic) I25.10 OMER to proximal-mid LAD (2.5 X 28 Promus Synergy), POBA to ostial proximal Diagonal #[address] Thompson @ [facility] Dyspnea on exertion (Acute) R06.09 Abnormal EKG (Acute) R94.31 Chest pain (Acute) R07.9 - Past Surgical History Surgical History: Past Surgical History (Last Updated 04/10/18 @ 11:19 by Ayleen Ruggiero) Stented coronary artery (Chronic) Onset Date: 04/10/18 Z95.5 OMER to proximal-mid LAD (2.5 X 28 Promus Synergy), POBA to ostial proximal Diagonal #[address] Thompson @ [facility] History of cholecystectomy Z90.49 Surgical History: cholecystectomy - Family History Summary Family History: Family History (Last Reviewed 04/08/18 @ 16:27 by Marlyn Alejandro) Mother Heart disease Father CAD (coronary artery disease) History of coronary artery bypass surgery Congestive heart failure (CHF) Social History - Smoking History Smoking Status: Former smoker Years Smokin Packs Smoked per Day: 1 Hx Tobacco Use: Yes Hx Smoking Exposure: Yes - Alcohol Use Alcohol Usage: Yes - 2 GLASSES WINE/DAY - Substance Abuse Hx Substance Use: No - Occupation Occupation (List type of work in comments):: Employed - [employer] Hours worked per day:: 6 - Hobbies, Recreation, Social Activities Hobbies: Other - [employer], [employer] Recreational Activities: I am able to engage in most, but not all activities Social Environment - Status Marital Status: - Current Living Arrangements Living Environment:: Family - Children How many children do you have?: 1 Do any of your children live nearby?: Yes - 18 YO SON LIVES AT HOME - Safety Do you feel safe in your surroundings?: Yes Review of Systems - Review of Systems Hints: Right click = Denies ([place]ash). Left click = Reports ([place]) Review of Present Symptoms: Reports: Dizziness/Lightheadedness - SLIGHTLY AT TIMES, Appetite - Normal, Sleep - Normal. Denies: Shortness of Breath at Rest, Shortness of Breath with Exertion, PVD, Operative Discomfort, Angina, Wound Healing, Fatigue, Heart Arrhythmia/Irregularities, Appetite - Special Diet - Pain Is Patient Pain Free?: Yes Pain Level: 0/10 Risk Factor Assessment - Chief Complaint Chief Complaint: CURRENT PCI PT WHO PRESENTS TODAY FOR CR INIT EVAL - Vital Signs Temperature: 98.6 F Respiratory Rate: 16 Pulse Ox: 98 Blood Pressure: 94/70 Nailbeds:: PINK - Pulse Pulse Rate: 47 Pulse Rhythm: Regular - Hypertension Blood Pressure Sitting - Left Arm: 94/70 - Blood Cholesterol/Lipids Total Cholesterol (mg/dL) Goal = less than 200 mg/dL: 212 HDL Cholesterol (mg/dL) Goal = less than 40 mg/dL: 54 LDL Cholesterol (mg/dL) Goal = less than 70 mg/dL: 113 Triglycerides (mg/dL) Goal = less than 150 mg/dL: 223 - Diabetes Nutrition Referral for Diabetes: No - Obesity Height: 5 ft 7 in Weight:: 174 lb Weight in Pounds: 174.0 lbs Body Mass Index (BMI): 27.2 Nutritional Referral for Obesity: No - PT WOULD LIKE TO CHECK WITH INS AND SEE IF CAN TAKE NUTRITIONAL CLASSES - Physical Inactivity Physical Inactivity: Reg Exercise 30 min/day, Physically demanding job, Recreational activity - [employer] - Risk Stratification Risk Guidelines: Lowest Risk: Risk Factor for Diabetes, Risk Factor for Hypertension, Risk Factor for Sedentary Lifestyle, Risk Factor for Depression, Moderate Risk: Risk Factor for Smoking, Risk Factor for Dyslipidemia, Risk Factor for Obesity - For Smoking Smoking Risk Guidelines: Smoking Low Risk: None or quit greater than 6 months ago. Smoking Moderate Risk: Smoker or quit 6 months or less ago. Smoking High Risk: Smoker - For Dyslipidemia Dyslipidemia Risk Guidelines: Low Risk: Moderate Risk: High Risk: 15-25% fat 25.1-29% fat >/= 30% fat. <7% sat fat 7-9% sat fat >9% sat fat. <150 mg chol 150-299 mg chol >/= 300 mg chol. LDL <100 LDL 100-129 LDL >/= 130. Chol/HDL ratio <5.0 Chol/HDL ratio 5.0-6.0 Chol/HDL ratio >6.0. Triglycerides <100 Triglycerides 100-149 Triglycerides >/= 150 - For Diabetes Mellitus Diabetes Risk Guidelines: Diabetes Low Risk: HgA1c <6.5% and/or FBG <120. Diabetes Moderate Risk: HgA1c 6.6-7.9% and/or FBG 120-180. Diabetes High Risk: HgA1c >/= 8% and/or FBG >180 - For Obesity/Overweight Obesity/Overweight Risk Guidelines: Obesity Low Risk: BMI <25.0. Obesity Moderate Risk: BMI 25-29.9. Obesity High Risk: BMI >/= 30.0 - For Hypertension Hypertension Risk Guidelines: Hypertension Low Risk: Systolic <120 and Diastolic <80. Hypertension Moderate Risk: Systolic 120-139 and Diastolic 80-89. Hypertension High Risk: Systolic >/= 140 and Diastolic >/= 90 - For Sedentary Lifestyle Sedentary Lifestyle Risk Guidelines: Sedentary Lifestyle Low Risk: >/= 1,500 kcal/week. Sedentary Lifestyle Moderate Risk: 700-1,499 kcal/week. Sedentary Lifestyle High Risk: < 700 kcal/week - For Depression Depression Risk Guidelines: Depression Low Risk: Not clinically depressed. Depression Moderate Risk: Mildly depressed. Depression High Risk: Clinically depressed - Family History Family History: Family History (Last Reviewed 04/08/18 @ 16:27 by Marlyn Alejandro) Mother Heart disease Father CAD (coronary artery disease) History of coronary artery bypass surgery Congestive heart failure (CHF) Motivation - Motivation to Participate On a scale of 1 to 10, how prepared are you to commit to attending program?: 10 What do you see as barriers to successfully being able to complete the program?: TIME, SCHEDULING What do you see as the benefits of succesfully completing the program? In other words, what do you hope to get out of participating in the program?: NO STENT PROBLEMS, WT AND STRENTH Are there issues you are dealing with that will interfere with completing the program?: WORK AND DIET Do you have a spouse or signficant other, family or friends who will help support you to complete the program?: SPOUSE
--- NOTE | 2018-04-18 12:13 | CR.HP_ITS ---
CR - History & Physical - General Arrival date:: 04/18/18 Arrival time:: 09:00 Date of Referral:: 04/11/18 Date of CR Evaluation:: 04/18/18 Referring Physician: DR. REYNOSO Primary Diagnosis: PCI WITH STENT - History of Present Cardiac Event Onset Date: Enter Onset Date of cardiac illnesses in Comment field below Current stable Angina Pectoris:: No Acute Myocardial Infarction within 12 months:: No Coronary Artery Bypass Graft:: No Heart valve replacement or repair:: No PTCA or coronary stenting:: Yes Heart or Heart-Lung Transplant:: No Type of Symptoms:: SOB, CP (CLAMP/SQWEEZINF), FATIGUE - Medications Home Medications: Ambulatory Orders Medication Instructions Recorded albuterol sulfate HFA 90 2 puff INHALATION Q4H PRN g 04/08/18 mcg/actuation aerosol inhaler aspirin 81 mg tablet,delayed 81 mg PO DAILY #30 tab 04/08/18 release budesonide-formoterol HFA 160 2 puff INHALATION BID 04/08/18 mcg-4.5 mcg/actuation aerosol inhaler bupropion HCl XL 300 mg 24 hr 300 mg PO QAM 04/08/18 tablet, extended release clonazepam 0.5 mg tablet 0.5 mg PO BID 04/08/18 clopidogrel 75 mg tablet 75 mg PO DAILY #30 tab 04/08/18 isosorbide mononitrate ER 30 mg 30 mg PO QAM #30 tab 04/08/18 tablet,extended release 24 hr metoprolol tartrate 25 mg tablet 25 mg PO BID #60 tab 04/08/18 nitroglycerin 0.4 mg sublingual 0.4 mg SUBLINGUAL Q5-15M PRN #90 04/08/18 tablet tab Nitroglycerin [Nitrostat] 0.4 mg SUBLINGUAL Q5M PRN 04/09/18 Atorvastatin Calcium [Lipitor] 80 mg PO QHS #30 tablet 04/11/18 atorvastatin 80 mg tablet 80 mg PO QPM #30 tab 04/11/18 - Allergies Allergies/Adverse Reactions: Allergies No Known Allergies Allergy (Verified 04/08/18 16:21) - Sleep Disorder Evaluation Hx of Sleep Apnea: No Do you snore loudly (louder than talking or can be heard through closed doors)?: Yes Do you often feel tired/ fatigued/ sleepy during daytime?: Yes Has anyone observed you stop breathing during sleep?: Yes History of Hypertension (for STOP score): No - PT WOULD LIKE TO BE EVALUATED FOR SLEEP APNEA STOP Results: Positive Advanced Directives - Advanced Directives Power of Applications Support Engineer: Yes Living Will: Yes Advance Directives on File: No - PT IS UNSURE OF EXACT PAPERS AT HOME, ENCOURAGED TO BRING IN (MED REC) DNR Order?:: No Past Medical History - Past Medical Illness Medical History: Past Medical History (Last Updated 04/10/18 @ 11:19 by Ayleen Ruggiero) Atherosclerotic heart disease of [place] coronary artery without angina pectoris (Chronic) I25.10 OMER to proximal-mid LAD (2.5 X 28 Promus Synergy), POBA to ostial proximal Diagonal #[address] Thompson @ [facility] Dyspnea on exertion (Acute) R06.09 Abnormal EKG (Acute) R94.31 Chest pain (Acute) R07.9 - Past Surgical History Surgical History: Past Surgical History (Last Updated 04/10/18 @ 11:19 by Ayleen Ruggiero) Stented coronary artery (Chronic) Onset Date: 04/10/18 Z95.5 OMER to proximal-mid LAD (2.5 X 28 Promus Synergy), POBA to ostial proximal Diagonal #[address] Thompson @ [facility] History of cholecystectomy Z90.49 Surgical History: cholecystectomy - Family History Summary Family History: Family History (Last Reviewed 04/08/18 @ 16:27 by Marlyn Alejandro) Mother Heart disease Father CAD (coronary artery disease) History of coronary artery bypass surgery Congestive heart failure (CHF) Social History - Smoking History Smoking Status: Former smoker Years Smokin Packs Smoked per Day: 1 Hx Tobacco Use: Yes Hx Smoking Exposure: Yes - Alcohol Use Alcohol Usage: Yes - 2 GLASSES WINE/DAY - Substance Abuse Hx Substance Use: No - Occupation Occupation (List type of work in comments):: Employed - [employer] Hours worked per day:: 6 - Hobbies, Recreation, Social Activities Hobbies: Other - [employer], [employer] Recreational Activities: I am able to engage in most, but not all activities Social Environment - Status Marital Status: - Current Living Arrangements Living Environment:: Family - Children How many children do you have?: 1 Do any of your children live nearby?: Yes - 18 YO SON LIVES AT HOME - Safety Do you feel safe in your surroundings?: Yes Review of Systems - Review of Systems Hints: Right click = Denies (Slash). Left click = Reports ([place]) Review of Present Symptoms: Reports: Dizziness/Lightheadedness - SLIGHTLY AT TIMES, Appetite - Normal, Sleep - Normal. Denies: Shortness of Breath at Rest, Shortness of Breath with Exertion, PVD, Operative Discomfort, Angina, Wound Healing, Fatigue, Heart Arrhythmia/Irregularities, Appetite - Special Diet - Pain Is Patient Pain Free?: Yes Pain Level: 0/10 Risk Factor Assessment - Chief Complaint Chief Complaint: CURRENT PCI PT WHO PRESENTS TODAY FOR CR INIT EVAL - Vital Signs Temperature: 98.6 F Respiratory Rate: 16 Pulse Ox: 98 Blood Pressure: 94/70 Nailbeds:: PINK - Pulse Pulse Rate: 47 Pulse Rhythm: Regular - Hypertension Blood Pressure Sitting - Left Arm: 94/70 - Blood Cholesterol/Lipids Total Cholesterol (mg/dL) Goal = less than 200 mg/dL: 212 HDL Cholesterol (mg/dL) Goal = less than 40 mg/dL: 54 LDL Cholesterol (mg/dL) Goal = less than 70 mg/dL: 113 Triglycerides (mg/dL) Goal = less than 150 mg/dL: 223 - Diabetes Nutrition Referral for Diabetes: No - Obesity Height: 5 ft 7 in Weight:: 174 lb Weight in Pounds: 174.0 lbs Body Mass Index (BMI): 27.2 Nutritional Referral for Obesity: No - PT WOULD LIKE TO CHECK WITH INS AND SEE IF CAN TAKE NUTRITIONAL CLASSES - Physical Inactivity Physical Inactivity: Reg Exercise 30 min/day, Physically demanding job, Recreational activity - [employer] - Risk Stratification Risk Guidelines: Lowest Risk: Risk Factor for Diabetes, Risk Factor for Hypertension, Risk Factor for Sedentary Lifestyle, Risk Factor for Depression, Moderate Risk: Risk Factor for Smoking, Risk Factor for Dyslipidemia, Risk Factor for Obesity - For Smoking Smoking Risk Guidelines: Smoking Low Risk: None or quit greater than 6 months ago. Smoking Moderate Risk: Smoker or quit 6 months or less ago. Smoking High Risk: Smoker - For Dyslipidemia Dyslipidemia Risk Guidelines: Low Risk: Moderate Risk: High Risk: 15-25% fat 25.1-29% fat >/= 30% fat. <7% sat fat 7-9% sat fat >9% sat fat. <150 mg chol 150-299 mg chol >/= 300 mg chol. LDL <100 LDL 100-129 LDL >/= 130. Chol/HDL ratio <5.0 Chol/HDL ratio 5.0-6.0 Chol/HDL ratio >6.0. Triglycerides <100 Triglycerides 100- 149 Triglycerides >/= 150 - For Diabetes Mellitus Diabetes Risk Guidelines: Diabetes Low Risk: HgA1c <6.5% and/or FBG <120. Diabetes Moderate Risk: HgA1c 6.6-7.9% and/or FBG 120-180. Diabetes High Risk: HgA1c >/= 8% and/or FBG >180 - For Obesity/Overweight Obesity/Overweight Risk Guidelines: Obesity Low Risk: BMI <25.0. Obesity Moderate Risk: BMI 25-29.9. Obesity High Risk: BMI >/= 30.0 - For Hypertension Hypertension Risk Guidelines: Hypertension Low Risk: Systolic <120 and Diastolic <80. Hypertension Moderate Risk: Systolic 120-139 and Diastolic 80-89. Hypertension High Risk: Systolic >/= 140 and Diastolic >/= 90 - For Sedentary Lifestyle Sedentary Lifestyle Risk Guidelines: Sedentary Lifestyle Low Risk: >/= 1,500 kcal/week. Sedentary Lifestyle Moderate Risk: 700-1,499 kcal/week. Sedentary Lifestyle High Risk: < 700 kcal/week - For Depression Depression Risk Guidelines: Depression Low Risk: Not clinically depressed. Depression Moderate Risk: Mildly depressed. Depression High Risk: Clinically depressed - Family History Family History: Family History (Last Reviewed 04/08/18 @ 16:27 by Marlyn Alejandro) Mother Heart disease Father CAD (coronary artery disease) History of coronary artery bypass surgery Congestive heart failure (CHF) Motivation - Motivation to Participate On a scale of 1 to 10, how prepared are you to commit to attending program?: 10 What do you see as barriers to successfully being able to complete the program?: TIME, SCHEDULING What do you see as the benefits of succesfully completing the program? In other words, what do you hope to get out of participating in the program?: NO STENT PROBLEMS, WT AND STRENTH Are there issues you are dealing with that will interfere with completing the program?: WORK AND DIET Do you have a spouse or signficant other, family or friends who will help support you to complete the program?: SPOUSE
[2018-04-18 12:33] VITALS: BP 94/70; PULSE 47; RESP 16; TEMP 37; O2SAT 98; BMI 27.2
--- NOTE | 2018-04-18 12:40 | CR.ITP_ITS ---
General Information - General Information Admitting Diagnosis: PCI WITH STENT - Education/Goals Barriers to Learning: None Individual Counseling: Initial Assessment: Abnormal Cholesterol Levels, Stress, Family History of Heart Disease (under 65 years) Cardiac Rehabilitation Goals: 1. Maintain the individual as the primary focus of care. 2. To improve the patient's quality of life. 3. Identification of cardiac risk factors and provide cardiac risk factor management. 4. Enhance the psychosocial status of the patient. 5. Reconditioning enough to allow the patient to resume customary activities. 6. Control symptoms of cardiac disease Scale for measuring improvement of personal goals: Enter appropriate number in Comments. 2 = Unchanged. 3 = Slightly Better. 4 = Moderate Improvement. 5 = Met my Goal Personal Goals: Initial Assessment: Improve management of stress and emotions, Improve energy level, Participate in home exercise program, Get back to work, or to resume activities faster, Improve knowledge of cardiac disease, Improve muscle strength and endurance, Improve diet and eating habits (eat healthier), Control risk factors (learn risk factor modification) Exercise - Initial Assessment - Visit Date of Eval: 04/18/18 - Stages of Change Stages of Change:: Action - Exercise Prescription Mode:: Treadmill, Biodyne, Rower, Airdyne, NuStep, Arm Ergometer Angina with exercise?: No Target Heart Rate:: 111-127 - Hypertension Do any of the following apply?: No Resting Blood Pressure:: 94/70 - Intervention Home Exercise/Activity Goal:: Sitting Time <3 hrs/day - Education Goals:: Warm-up, RPE PAL Scale, S/S, Safe Exercise, Self-Monitoring - Exercise Program Goals Exercise Program Goals: Aerobic Activity >30 min, B/P <130/80 Nutrition - Initial Assessment - Program Goals Nutrition Program Goals: LDL <70. Total Cholesterol <200. HDL >45. Triglycerides <150. HgbA1C <7%. BMI <25 - Visit Date of Assessment:: 04/18/18 - Stages of Change Stages of Change:: Action - Lipids Total Cholesterol (mg/dL) Goal = less than 200 mg/dL: 212 HDL Cholesterol (mg/dL) Goal = less than 45 mg/dL: 54 LDL Cholesterol (mg/dL) Goal = less than 70 mg/dL: 113 Triglycerides (mg/dL) Goal = less than 150 mg/dL: 223 - Diabetes Diabetes:: No - Weight Management Height: 5 ft 7 in Weight:: 174 lb - Intervention Referral to Diabetic Clinic:: No Will attend diet classes:: Yes - Education Gave educational materials for:: Healthy eating Tobacco - Initial Assessment - Program Goals Tobacco Program Goals: Complete smoking cessation. Attend education classes. Improve Knowledge Test score - Stage of Change Stages of Change:: Action - Family Support Do you have family support?: Yes - Tobacco Use How long ago did you quit using tobacco products?: Greater than or equal to 6 months ago Years Smokin Do you use smokeless tobacco?: No - Intervention Smoking Cessation Referral:: No Individual Education/Counseling:: No Education Schedule Given:: No - Education Gave educational material for:: Coronary artery disease, Risk factors Psychosocial - Initial Assess - Target Goals Target Goals: Assess presence or absence of depression. Using a valid screening tool, maximizes coping skills. Positive support system - Stages of Change Stages of Change:: Action - Psychosocial Test Tool Used:: HANDS Depression Questionnaire - Intervention PS - Interventions: Yes Attend Stress Management Classes, No Referral to Mental Health, No Referral to [facility] Case Management, No Referral to Physician, No Uses Stress Management Skills - Education Gave educational materials for:: Coping techniques, Signs & symptoms of depression, Stress management, Relaxation techniques - Patient/Program Goal Preventative Medication(s):: Aspirin, Clopidogrel, Beta bay, Statin/lipid - Assistive Devices Assistive Devices:: None Patient Health Questionnaire Initial Assessment 1. Little interest or pleasure in doing things: Not at all 2. Feeling down, depressed, or hopeless: Several days 3. Trouble falling or staying asleep, or sleeping too much: Several days 4. Feeling tired or having little energy: Several days 5. Poor appetite or overeating: Several days 6. Feeling bad about yourself -- or that you are a failure or have let yourself or your family down: More than half the days 7. Trouble concentrating on things, such as reading the newspaper or watching television: Not at all 8. Moving or speaking so slowly that other people could have noticed. Or the opposite - being so fidgety or restless that you have been moving around a lot more than usual: Not at all 9. Thoughts that you would be better off , or of hurting yourself in some way: Not at all Total Score: 6 JORDYN-Q SV Test - Statements CAD is a disease of the arteries in the heart: False Examples of risk factors for heart disease: True Angina is chest pain or discomfort: True The benefits of resistance training include: True Eating more meat and dairy products: False Anti-platelet medications such as aspirin are important: True The only effective way to manage stress: False An exercise warm-up slowly increases heart rate: True Prepared, processed foods usually have high sodium: True Depression is common after a heart attack: True The statin medications lower cholesterol: True To control blood pressure, lower the amount of sodium: True If someone gets chest discomfort during walking: False Transfats are partially hydrogenated vegetable oils: False Sleep apnea that is not treated increases the risk: False To control cholesterol, one should become a vegetarian: False Someone knows if he/she is exercising at the right level: True Diabetes cannot be prevented with exercise & health eating: False Stress is a large risk for heart attack: True A diet that can help lower blood pressure is rich in: True - Total Score Total Correct Responses: 19 Self-Efficacy Initial Assessment We would like to know how confident you are in doing certain activities. Please select your confidence level for:: Select your confidence level for the following using the scale 1-10 where 1 is not at all confident and 10 is totally confident. Your score is the average of all 6 responses. Fatigue: How confident are you that you can keep the fatigue caused by your disease from interfering with the things you want to do? Select Number: 5 Physical Discomfort or Pain: How confident are you that you can keep the physical discomfort or pain of your disease from interfering with the things you want to do? Select Number: 4 Emotional Distress: How confident are you that you can keep the emotional distress caused by your disease from interfering with the things you want to do? Select Number: 6 Other Symptoms or Health Problems: How confident are you that you can keep other symptoms or health problems from interfering with the things you want to do? Select Number: 7 Different Tasks and Activities: How confident are you that you can do the different tasks and activities needed to manage your health condition so as to reduce your need to see a doctor? Select Number: 7 Medication: How confident are you that you can do things other than just taking medication to reduce how much your illness affects your everyday life? Select Number: 9 Total Score:: 6 Nutrition Survey - Nutrition Survey Instructions Scoring Instructions: Scoring is as follows: Yes = 1 points. No = 0 point. Patient score that is >/=12 is considered to be at potential nutritional risk and could benefit from a referral to a registered dietitian. - Nutrition Survey Initial Have you lost >10 lbs over the past 2 months without trying?: No Are you following a special diet at home for diabetes, low fat, or low salt?: No Are you interested in meeting with a dietitian for help understanding your diet?: No Do you eat less than 3 meals a day?: No Do you eat fatty meats (mcclain, sausage, ribs, etc), fried foods, desserts, large amounts of salad dressings, margarine, butter, or cheese most days?: Yes Do you have food allergies? [Enter types in comment field]: No Do you eat in restaurants more than 3 times a week?: Yes Do you season food with salt, seasoning salt, or garlic salt?: Yes Do you used canned, boxed, frozen meals, or soups, seasoning packets?: Yes Total Score:: 4
[2018-04-18 13:00] VITALS: BP 94/70
--- OUTSIDE RECORDS SUMMARY | 2018-06-22 22:27 | XMS RPT_ITS ---
:1955 Author Organization OHIP Support Name Relationship Address Phone DINORASATINDER Awad Unavailable [address] + [place] [address] U Unavailable Unavailable Unavailable SATINDER BOURGEOIS Unavailable [address] + [place] [address] U Unavailable Unavailable Unavailable SATINDER BOURGEOIS Unavailable [address] + [place] [address] COW Unavailable [address] + [place] [address] SATINDER BOURGEOIS Unavailable [address] + [place] [address] C[place] Un[address] + [place] [address] SATINDER BOURGEOIS Unavailable [address] + [place] [address] [place] Unavailable [address] + [place] [address] SATINDER BOURGEOIS Unavailable [address] + [place] [address] [address] Unavailable [address] + [place] [address] SATINDER BOURGEOIS Unavailable [address] + [place] [address] [place] Un[address] + [place] [address] SATINDER BOURGEOIS Unavailable [address] + [place] [address] [address] [address] + [place] [address] SATINDER BOURGEOIS Unavailable [address] + [place] [address] + [place] [address] SATINDER BOURGEOIS Unavailable [address] + [place] [address] + [place] [address] SATINDER BOURGEOIS Unavailable [address] + [place] [address] + [place] [address] SATINDER BOURGEOIS Unavailable [address] + [place] [address] + [place] [address] Care Team Providers Name Role Phone Marlyn Alejandro Attending Unavailable MoodOtoniel fonseca Attending Unavailable Santacruz, Antonio Referring Unavailable MoodisOtoniel morris Attending Unavailable MoodisOtoniel morris Referring Unavailable Santacruz, Antonio Primary Care Unavailable MoodOtoniel fonseca Attending Unavailable MoodispaOtoniel mcdonald Referring Unavailable Santarcuz, Antonio Primary Care Unavailable MoodispaOtoniel mcdonald Consulting Unavailable MoodisOtoniel morris Attending Unavailable MoodisOtoniel morris Referring Unavailable Santacruz, Antonio Primary Care Unavailable MoodOtoniel fonseca Consulting Unavailable MoodisOtoniel morris Attending Unavailable MoodispaOtoniel mcdonald Referring Unavailable Santacruz, Antonio Primary Care Unavailable Noni Parekh Attending Unavailable Santacruz, Antonio Primary Care Unavailable Noni Parekh Referring Unavailable Santacruz, Antonio Attending Unavailable Santacruz, Antonio Primary Care Unavailable Santacruz, Antonio Attending Unavailable Santacruz, Antonio Referring Unavailable Santacruz, Antonio Primary Care Unavailable Dereck Sterling Attending Unavailable MoodispaOtoniel mcdonald Attending Unavailable MoodispaOtoniel mcdonald Referring Unavailable Santacruz, Antonio Primary Care Unavailable Marlyn Lennon Attending Unavailable Santacruz, Antonio Referring Unavailable PROBLEMS PROBLEMS DATE TYPE CONDITION / CODE ATTENDING STATUS SOURCE 04/23/2018 Unknown I25.10 - Saji, Active [place] Atherosclerotic heart Marlyn [facility] disease [facility] coronary artery Repository without angina pectoris / I25.10(ICD-10) 04/11/2018 Unknown R06.09 - Other forms Adrian, Active [place] of dyspnea / Otoniel [place] R06.09(ICD-10) Hospital Repository 04/11/2018 Unknown Z95.5 - Presence of [place], Active [place] coronary angioplasty [facility] implant and graft / Hospital Z95.5(ICD-10) Repository 04/08/2018 Unknown R94.31 - Abnormal [place], Active [place] electrocardiogram [facility] [ECG] [EKG] / Hospital R94.31(ICD-10) Repository 04/08/2018 Unknown I20.9 - Angina [place], Active [place] pectoris, unspecified [facility] / I20.9(ICD-10) Hospital Repository 04/08/2018 Unknown R07.9 - Chest pain, [place], Active [place] unspecified / [facility] R07.9(ICD-10) Hospital Repository 11/05/2017 Unknown R07.89 - Other chest Asher, [place] Active [place] pain / R07.89(ICD-10) [facility] Repository 08/29/2017 Unknown Z00.00 - Encounter for Antonio Santacruz Active [place] [facility] examination without Hospital abnormal findings / Repository Z00.00(ICD-10) PROCEDURES PROCEDURES No Procedure Records FoundRESULTS RESULTS CARDIOLOGY VISIT Observed: 04/24/2018 Status: F Source: [place] REPORT 5:03 PM [facility] REPOSITORY [facility] [address] [place] [address]. [address] [place] [address] OFFICE VISIT Date of Service: 04/23/18 MR#: [id number] Acct: [id number] Name: GAL BOURGEOIS Rep #: [id number] : 1955 Provider: Marlyn Lennon Age/Sex: 63/F Location: [facility] Status: Signed HPI HPI Details: GAL BOURGEOIS, is a 63 F who presents to the office today for a cardiovascular follow-up with recent stenting to her LAD and angioplasty to her diagonal in April 2018. Since patient had her stenting placed she no longer has the chest heaviness or discomfort. She did start cardiac rehab and is not having any difficulty with this. She does not have any worsening shortness of breath. She does not have any palpitations. She does not have any lightheadedness, dizziness or syncopal episodes. She does not have any lower extremity edema. Both her and her have multiple questions regarding her medications and regarding the diagnosis of coronary artery disease. Intake Vital Signs04/23/18 Height 5 ft 7 in 04/23/18 Weight: 176 lb 8 oz 04/23/18 Body Mass Index (BMI) 27.6 04/23/18 Blood Pressure 108/68 Intake Visit Reasons: S/P [facility] PER MMM Accompanied by: Is patient in pain?: No Allergies No Known Allergies Allergy (Verified 04/23/18 14:18) Medications aspirin 81 mg tablet,delayed release 81 mg PO DAILY #30 tab 04/08/18 [Rx Confirmed 04/23/18] bupropion HCl XL 300 mg 24 hr tablet, extended release 300 mg PO QAM 04/08/18 [History Confirmed 04/23/18] clonazepam 0.5 mg tablet 0.5 mg PO BID 04/08/18 [History Confirmed 04/23/18] nitroglycerin 0.4 mg sublingual tablet 0.4 mg SUBLINGUAL Q5- 15M PRN #90 tab 04/08/18 [Rx Confirmed 04/23/18] atorvastatin 80 mg tablet 80 mg PO QPM #90 tab 04/23/18 [Rx Confirmed 04/23/18] clopidogrel 75 mg tablet 75 mg PO DAILY #90 tab 04/23/18 [Rx Confirmed 04/23/18] metoprolol tartrate 25 mg tablet 25 mg PO BID #180 tab 04/23/18 [Rx Confirmed 04/23/18] Ejection fraction %: 55 to 59 PFSH Medical History Atherosclerotic heart disease of [place] coronary artery without angina pectoris (Chronic) Dyspnea on exertion (Acute) Abnormal EKG (Acute) Chest pain (Acute) Surgical History Stented coronary artery (Chronic 04/10/18) History of cholecystectomy (Resolved) Family History Mother Heart disease Father CAD (coronary artery disease) History of coronary artery bypass surgery Congestive heart failure (CHF) Uncle Heart disease Massive Heart attack at age 40 Social History Smoking Status: Former smoker alcohol intake: current details: glass of wine daily substance use type: does not use Assessment AND Plan 1. Atherosclerosis of [place] coronary artery of [place] heart without angina pectoris I25.10 OMER to proximal-mid LAD (2.5 X 28 Promus Synergy), POBA to ostial proximal Diagonal #[address] Thompson @ [facility] Plan Patient is aware that she needs to stay on her Plavix for a minimum of 1 year. She is also aware that she needs to stay on her aspirin. She will continue with her current aggressive medical management. She will continue with cardiac rehab. It is okay for patient to return to work on Sunday. As part of her risk factor management she will continue with high-dose statin therapy. We will repeat her labs in 4 weeks. Orders Orders: Plan Detail Other Medications Refilled: Discontinued: isosorbide mononitrate ER Discontinued Reason: Discontinued 30 mg PO QAM 30 tabs 1RF by PCP/other physicians Additional Comments Thank you for allowing us to participate in patient's plan of care, if you have any questions please do not hesitate to call. This note was generated using a voice recognition system and there may be incorrect words, spelling or punctuation errors that were not noted when reviewing the office note prior to saving. Follow Up 04/23/18 (Please write note to return back to work Saturday 04/29) 6 Weeks (MMM) Coding Level of Care Code Off vis,est,level 3 Diagnoses Atherosclerosis of [place] coronary artery of [place] heart without angina pectoris I25.10 [place] vs. transplanted heart: [place] heart Coding Level of Care Code Off vis,est,level 3 Diagnoses Atherosclerosis of [place] coronary artery of [place] heart without angina pectoris I25.10 [place] vs. transplanted heart: [place] heart Supplemental Info Supplemental Information CONCLUSIONS Successful PTCA/OMER proximal/mid LAD with a 2.5 x 28 Promus Synergy, post dilated proximally with a 3.5 x 12 NC Balloon; 90%-->0%, no dissection. Successful PCI with PTCA to the ostial/proximal DIAG#1 with a 2.0 x 12; 75%-->50%, no dissection. Would hold off on bifurcating stents at this time given <50% residual stenosis, and challenges with accessing LAD with second wire. Labs LDL Cholesterol 113 mg/dL (0-130) 04/11/18 HDL Cholesterol 54 mg/dL (40-) 04/11/18 Triglycerides 223 mg/dL (-199) H 04/11/18 VLDL Cholesterol 45 mg/dL (5-40) H 04/11/18 Diagnostics Electrocardiogram 04/11/18 Echocardiogram 04/09/18 Stress Test 10/01/17 Cardiac Catheterization 04/10/18 Chest X-Ray 04/09/18 04/24/18 6409 <Electronically signed by Marlyn HILL> Date Marlyn HILL Cosigner Signature: Date (if applicable) CC: Antonio Santacruz MD 12 LEAD ELECTROCARDIOGRAM Observed: 04/22/2018 Status: F Source: [place] 10:05 AM [facility] REPOSITORY [facility] Cardiovascular Services [address] [place] [id number] 12 Lead EKG 04/11/18 0511 MR#: [id number] Acct: [id number] Name: GAL BOURGEOIS Rep #: [id number] : 1955 63 From: Dereck Sterling MD Attending Dr: Otoniel Reynoso MD Status: [facility] Ordering Dr: Satinder Thompson MD Date: 04/11/18 Location: [facility] Sex: F C Admitted: Test Reason : AM EKG Blood Pressure : / mmHG Vent. Rate : 067 BPM Atrial Rate : 067 BPM P-R Int : 184 ms QRS Dur : 084 ms QT Int : 440 ms P-R-T Axes : 062 -14 090 degrees QTc Int : 464 ms Normal sinus rhythm Nonspecific T wave abnormality Abnormal ECG When compared with ECG of 13-JUL-2012 08:27, T wave inversion now evident in Anterolateral leads Confirmed by DERECK STERLING MD ([id number]), editor at large CONNOR ANDERS ([id number]) on 04/22/2018 10:05:28 AM Referred By: Otoniel Reynoso Confirmed By:DERECK STERLING MD 04/22/18 1005 Date Dereck Sterling MD CC: Satinder Thompson MD; Antonio Santacruz MD; Otoniel Reynoso MD Signed CR - HISTORY AND Observed: 04/18/2018 Status: F Source: [place] PHYSICAL 12:53 PM [facility] REPOSITORY [facility] Cardiac Rehab [address] [place] [address] CR - History AND Physical MR#: [id number] Acct: [id number] Name: GAL BOURGEOIS Rep #: [id number] : 1955 63 From: Felicia Lombardi RN PCP: Antonio Santacruz MD DOS: 04/18/18 CR - History AND Physical - General Arrival date:: 04/18/18 Arrival time:: 09:00 Date of Referral:: 04/11/18 Date of CR Evaluation:: 04/18/18 Referring Physician: DR. REYNOSO Primary Diagnosis: PCI WITH STENT - History of Present Cardiac Event Onset Date: Enter Onset Date of cardiac illnesses in Comment field below Current stable Angina Pectoris:: No Acute Myocardial Infarction within 12 months:: No Coronary Artery Bypass Graft:: No Heart valve replacement or repair:: No PTCA or coronary stenting:: Yes Heart or Heart-Lung Transplant:: No Type of Symptoms:: SOB, CP (CLAMP/SQWEEZINF), FATIGUE - Medications Home Medications: Ambulatory Orders Medication Instructions Recorded albuterol sulfate HFA 90 2 puff INHALATION Q4H PRN g 04/08/18 mcg/actuation aerosol inhaler aspirin 81 mg tablet,delayed 81 mg PO DAILY #30 tab 04/08/18 - Allergies Allergies/Adverse Reactions: Allergies No Known Allergies Allergy (Verified 04/08/18 16:21) - Sleep Disorder Evaluation Hx of Sleep Apnea: No Do you snore loudly (louder than talking or can be heard through closed doors)?: Yes Do you often feel tired/ fatigued/ sleepy during daytime?: Yes Has anyone observed you stop breathing during sleep?: Yes History of Hypertension (for STOP score): No - PT WOULD LIKE TO BE EVALUATED FOR SLEEP APNEA STOP Results: Positive Advanced Directives - Advanced Directives Power of Gallery Assistant: Yes Living Will: Yes Advance Directives on File: No - PT IS UNSURE OF EXACT PAPERS AT HOME, ENCOURAGED TO BRING IN (MED REC) DNR Order?:: No Past Medical History - Past Medical Illness Medical History: Past Medical History (Last Updated 04/10/18 @ 11:19 by [place]en Ruggiero) Atherosclerotic heart disease of [place] coronary artery without angina pectoris (Chronic) I25.10 OMER to proximal-mid LAD (2.5 X 28 Promus Synergy), POBA to ostial proximal Diagonal #[address] Thompson @ [facility] Dyspnea on exertion (Acute) R06.09 Abnormal EKG (Acute) R94.31 Chest pain (Acute) R07.9 - Past Surgical History Surgical History: Past Surgical History (Last Updated 04/10/18 @ 11:19 by [place]en Ruggiero) Stented coronary artery (Chronic) Onset Date: 04/10/18 Z95.5 OMER to proximal-mid LAD (2.5 X 28 Promus Synergy), POBA to ostial proximal Diagonal #[address] Thompson @ [facility] History of cholecystectomy Z90.49 Surgical History: cholecystectomy - Family History Summary Family History: Family History (Last Reviewed 04/08/18 @ 16:27 by Marlyn Alejandro) Mother Heart disease Father CAD (coronary artery disease) History of coronary artery bypass surgery Congestive heart failure (CHF) Social History - Smoking History Smoking Status: Former smoker Years Smokin Packs Smoked per Day: 1 Hx Tobacco Use: Yes Hx Smoking Exposure: Yes - Alcohol Use Alcohol Usage: Yes - 2 GLASSES WINE/DAY - Substance Abuse Hx Substance Use: No - Occupation Occupation (List type of work in comments):: Employed - [employer] Hours worked per day:: 6 - Hobbies, Recreation, Social Activities Hobbies: Other - [employer], KETURAH[employer]GA Recreational Activities: I am able to engage in most, but not all activities Social Environment - Status Marital Status: - Current Living Arrangements Living Environment:: Family - Children How many children do you have?: 1 Do any of your children live nearby?: Yes - 18 YO SON LIVES AT HOME - Safety Do you feel safe in your surroundings?: Yes Review of Systems - Review of Systems Hints: Right click = Denies (Slash). Left click = Reports ([place]) Review of Present Symptoms: Reports: Dizziness/Lightheadedness - SLIGHTLY AT TIMES, Appetite - Normal, Sleep - Normal. Denies: Shortness of Breath at Rest, Shortness of Breath with Exertion, PVD, Operative Discomfort, Angina, Wound Healing, Fatigue, Heart Arrhythmia/Irregularities, Appetite - Special Diet - Pain Is Patient Pain Free?: Yes Pain Level: 0/10 Risk Factor Assessment - Chief Complaint Chief Complaint: CURRENT PCI PT WHO PRESENTS TODAY FOR CR INIT EVAL - Vital Signs Temperature: 98.6 F Respiratory Rate: 16 Pulse Ox: 98 Blood Pressure: 94/70 Nailbeds:: PINK - Pulse Pulse Rate: 47 Pulse Rhythm: Regular - Hypertension Blood Pressure Sitting - Left Arm: 94/70 - Blood Cholesterol/Lipids Total Cholesterol (mg/dL) Goal = less than 200 mg/dL: 212 HDL Cholesterol (mg/dL) Goal = less than 40 mg/dL: 54 LDL Cholesterol (mg/dL) Goal = less than 70 mg/dL: 113 Triglycerides (mg/dL) Goal = less than 150 mg/dL: 223 - Diabetes Nutrition Referral for Diabetes: No - Obesity Height: 5 ft 7 in Weight:: 174 lb Weight in Pounds: 174.0 lbs Body Mass Index (BMI): 27.2 Nutritional Referral for Obesity: No - PT WOULD LIKE TO CHECK WITH INS AND SEE IF CAN TAKE NUTRITIONAL CLASSES - Physical Inactivity Physical Inactivity: Reg Exercise 30 min/day, Physically demanding job, Recreational activity - [employer] - Risk Stratification Risk Guidelines: Lowest Risk: Risk Factor for Diabetes, Risk Factor for Hypertension, Risk Factor for Sedentary Lifestyle, Risk Factor for Depression, Moderate Risk: Risk Factor for Smoking, Risk Factor for Dyslipidemia, Risk Factor for Obesity - For Smoking Smoking Risk Guidelines: Smoking Low Risk: None or quit greater than 6 months ago. Smoking Moderate Risk: Smoker or quit 6 months or less ago. Smoking High Risk: Smoker - For Dyslipidemia Dyslipidemia Risk Guidelines: Low Risk: Moderate Risk: High Risk: 15-25% fat 25.1-29% fat >/= 30% fat. <7% sat fat 7-9% sat fat >9% sat fat. <150 mg chol 150-299 mg chol >/= 300 mg chol. LDL <100 LDL 100-129 LDL >/= 130. Chol/HDL ratio <5.0 Chol/HDL ratio 5.0-6.0 Chol/HDL ratio >6.0. Triglycerides <100 Triglycerides 100-149 Triglycerides >/= 150 - For Diabetes Mellitus Diabetes Risk Guidelines: Diabetes Low Risk: HgA1c <6.5% and/or FBG <120. Diabetes Moderate Risk: HgA1c 6.6-7.9% and/or FBG 120- 180. Diabetes High Risk: HgA1c >/= 8% and/or FBG >180 - For Obesity/Overweight Obesity/Overweight Risk Guidelines: Obesity Low Risk: BMI <25.0. Obesity Moderate Risk: BMI 25-29.9. Obesity High Risk: BMI >/= 30.0 - For Hypertension Hypertension Risk Guidelines: Hypertension Low Risk: Systolic <120 and Diastolic <80. Hypertension Moderate Risk: Systolic 120-139 and Diastolic 80-89. Hypertension High Risk: Systolic >/= 140 and Diastolic >/= 90 - For Sedentary Lifestyle Sedentary Lifestyle Risk Guidelines: Sedentary Lifestyle Low Risk: >/= 1,500 kcal/week. Sedentary Lifestyle Moderate Risk: 700-1,499 kcal/week. Sedentary Lifestyle High Risk: < 700 kcal/week - For Depression Depression Risk Guidelines: Depression Low Risk: Not clinically depressed. Depression Moderate Risk: Mildly depressed. Depression High Risk: Clinically depressed - Family History Family History: Family History (Last Reviewed 04/08/18 @ 16:27 by Marlyn Alejandro) Mother Heart disease Father CAD (coronary artery disease) History of coronary artery bypass surgery Congestive heart failure (CHF) Motivation - Motivation to Participate On a scale of 1 to 10, how prepared are you to commit to attending program?: 10 What do you see as barriers to successfully being able to complete the program?: TIME, SCHEDULING What do you see as the benefits of succesfully completing the program? In other words, what do you hope to get out of participating in the program?: NO STENT PROBLEMS, WT AND STRENTH Are there issues you are dealing with that will interfere with completing the program?: WORK AND DIET Do you have a spouse or signficant other, family or friends who will help support you to complete the program?: SPOUSE 04/18/18 1233 <Electronically signed by Felicia Lombardi RN> Date Felicia Lombardi RN Outcome assessment reviewed. Exercise plan approved as documented. Treatment plan and goals support patient needs/abilities. Continue with current plan. I certify the patient demonstrates improvement and remains willing and capable of participation. the patient continues to benefit from cardiac rehab services/training. The patient may continue at current intensity, endurance and modality and progress per protocol. 04/18/18 1253 <Electronically signed by Otoniel Reynoso MD> Cosigner Signature: Date Otoniel Reynoso MD CC: Signed DISCHARGE INSTRUCTION Observed: 04/16/2018 Status: F Source: [place] 8:54 AM [facility] REPOSITORY [facility] Medical Records Department [address] [place] [address] Instructions for Home/Discharge Instructions 04/11/18 0838 MR#: [id number] Acct: [id number] Name: GAL BOURGEOIS Rep #: [id number] : 1955 63 From: Marlyn HILL PCP: Antonio Santacruz MD Status: DEP [facility] Discharge Diet: No Restrictions - You may continue your normal diet. May shower in (days): 1 May resume sexual activity in: 1 week - if no groin problems occur. Lifting Restrictions: 10 pounds and also avoid any pushing or pulling for 3 days after your test. Additional Activity Instructions:: You must have someone drive you home. Do not drive until instructed by your doctor. You must have someone stay with you all night after your test. Rest in bed or on the couch until the next morning. Limit the number of times you go up and down stairs the day of your test. Call your doctor if your incision/area has: Increased Pain/ Swelling, Increased Redness, Foul Smelling Discharge, Swelling at the incision site Call your doctor if you observe: Fever of 101 or Higher Remove Dressing in (days):: 1 Additional Dressing/Incision Instructions:: Keep the dressing (bandage) on until the next morning. You may then shower, but do not take a tub bath for 5 days after your test. It is normal to have some tenderness and discomfort at the puncture site. Sometimes bruising also occurs. However, if pain, numbness, or coldness occurs below the puncture site (in your leg, toes, arms or fingers) call your doctor at once. You may have a small, marble sized knot at the puncture site. This is normal. Do not rub it. It will go away in 4-6 weeks. Bleeding can occur from the area where the puncture was done. Blood may spurt or drip from the site. If blood spurts, apply pressure right away to stop bleeding and call 911. Although rare, bleeding into the tissue (hematoma) can also occur. If this happens, a large, firm area goose egg under the skin will appear. If any of these occur, lie down as flat as you can and have someone apply firm pressure to the cath site with a gauze pad or a clean washcloth for 10-15 minutes. Call 911 or go to the Emergency Department. Additional Instructions: You were started on a cholesterol lowering medication we can further discuss this at your next visit. You will need to have labs monitored with this You will need to stay on your plavix for at least one year. Allergies/Adverse Reactions: Allergies No Known Allergies Allergy (Verified 04/08/18 16:21) Medications to take at Discharge albuterol sulfate HFA 90 mcg/actuation aerosol inhaler 2 puff INHALATION Q4H PRN g 04/08/18 aspirin 81 mg tablet,delayed release 81 mg PO DAILY #30 tab 04/08/18 budesonide-formoterol HFA 160 mcg-4.5 mcg/actuation aerosol inhaler 2 puff INHALATION BID 04/08/18 bupropion HCl XL 300 mg 24 hr tablet, extended release 300 mg PO QAM 04/08/18 clonazepam 0.5 mg tablet 0.5 mg PO BID 04/08/18 clopidogrel 75 mg tablet 75 mg PO DAILY #30 tab 04/08/18 isosorbide mononitrate ER 30 mg tablet,extended release 24 hr 30 mg PO QAM #30 tab 04/08/18 metoprolol tartrate 25 mg tablet 25 mg PO BID #60 tab 04/08/18 nitroglycerin 0.4 mg sublingual tablet 0.4 mg SUBLINGUAL Q5- 15M PRN #90 tab 04/08/18 Nitroglycerin [Nitrostat] 0.4 mg SUBLINGUAL Q5M PRN 04/09/18 Atorvastatin Calcium [Lipitor] 80 mg PO QHS #30 tablet 04/11/18 atorvastatin 80 mg tablet 80 mg PO QPM #30 tab 04/11/18 The following prescriptions were given: Atorvastatin Calcium [Lipitor] 80 mg PO QHS #30 tablet Primary Care Physician: Antonio Santacruz MD [Primary Care Provider] - Test Results: Test results from this visit will be discussed in further detail at your follow-up appointment, if applicable. Please Follow Up With: Marlyn Lennon PA When: 04/23 at 2pm Cardiac Rehabilitation Info Cardiac Rehabilitation Program Information: Cardiac Rehabilitation is important for patients like you who are recovering from a heart problem. Cardiac rehabilitation programs are recognized as integral to the continued care of the patient with coronary heart disease. The cardiac rehabilitation program is designed to optimize a patient's physical, psychological, and social functioning. Health behavioral health care manager work in cardiac rehabilitation programs and assist you with getting the treatments you need to get stronger and healthier - like exercise, healthy eating habits, and medications. Cardiac rehabilitation has been show to help people with heart problems live longer and have better life enjoyment than people who do not go to cardiac rehabilitation. Please contact the Cardiac Rehabilitation Program at [facility] at in two weeks if you have not heard from them. 04/16/18 0851 <Electronically signed by Marlyn HILL> Date Marlyn HILL CC: Antonio Santacruz MD Signed 12 LEAD ELECTROCARDIOGRAM Observed: 04/15/2018 Status: F Source: [place] 10:28 AM [facility] REPOSITORY [facility] Cardiovascular Services [address] [place] [address] 12 Lead EKG 04/10/18 1107 MR#: [id number] Acct: [id number] Name: GAL BOURGEOIS Rep #: [id number] : 1955 63 From: Dereck Sterling MD Attending Dr: Otoniel Reynoso MD Status: [facility] Ordering Dr: Satinder Thompson MD Date: 04/10/18 Location: [facility] Sex: F C Admitted: Test Reason : POST PCI Blood Pressure : / mmHG Vent. Rate : 058 BPM Atrial Rate : 058 BPM P-R Int : 212 ms QRS Dur : 080 ms QT Int : 474 ms P-R-T Axes : 050 -08 042 degrees QTc Int : 465 ms Sinus bradycardia with marked sinus arrhythmia with 1st degree A-V block Low voltage QRS Nonspecific T wave abnormality Prolonged QT Abnormal ECG No previous ECGs available Confirmed by ASHER LEES, DERECK ([id number]), editor at large CAMELIA GRAYSON ([id number]) on 04/15/2018 10:28:23 AM Referred By: Otoniel Reynoso Confirmed By:DERECK STERLING MD 04/15/18 1028 Date Dereck Sterling MD CC: Satinder Thompson MD; Antonio Santacruz MD; Otoniel Reynoso MD Signed DISCHARGE SUMMARY Observed: 04/11/2018 Status: F Source: [place] 9:55 AM [facility] REPOSITORY [facility] Medical Records Department [address] [place] [address] Discharge Summary 04/11/18 0951 MR#: [id number] Acct: [id number] Name: GAL BOURGEOIS Rep #: [id number] : 1955 63 From: Otoniel Reynoso MD PCP: Antonio Santacruz MD Status: REG [facility] Y Location: ICU [id number] Discharge Date and Diagnosis Date of Admission: 04/10/18 Date of Discharge: 04/11/18 - Primary Discharge Diagnosis CAD status post LAD PCI - Secondary Discharge Diagnosis Chronic Problems (Last Updated 04/10/18 @ 11:19 by Ayleen Ruggiero) Stented coronary artery (Chronic 04/10/18) OMER to proximal-mid LAD (2.5 X 28 [employer]), POBA to ostial proximal Diagonal #[address] Thompson @ [facility] Atherosclerotic heart disease of [place] coronary artery without angina pectoris (Chronic) OMER to proximal-mid LAD (2.5 X 28 [employer]), POBA to ostial proximal Diagonal #[address] Thompson @ [facility] Hospital Course and Treatment Procedures: Cardiac catheterization, - - Cardiac intervention: LAD PCI Summary of Care Provided: The patient is a 63 year old who presented for concerns of angina pectoris, and abnormal ECG, for further evaluation with diagnostic cardiac catheterization. The cardiac catheterization demonstrated angiographically significant appearing LAD disease. The patient subsequently underwent LAD PCI. She was monitored in the ICU overnight. She appeared to be symptomatically and hemodynamically stable. It was felt the patient was stable to be released home for continued outpatient cardiovascular follow-up and outpatient cardiac rehabilitation. [] Subjective: states she is feeling better overall. Objective: Cardiac rhythm: Sinus rhythm; 2 brief episodes of a somewhat irregular narrow complex tachycardia appearing compatible with an ectopic atrial rhythm/tachycardia (no associated symptoms or hemodynamic compromise) - Physical Exam General: Alert, Oriented x3, Cooperative, No apparent distress HEENT: Atraumatic, PERRLA, EOMI, Normocephalic Oral: Moist Mucosa Neck: Supple, No JVD Lungs: Clear to auscultation Cardiovascular: Regular rate, Regular Rhythm, Normal S1, Normal S2 Abdomen: Bowel Sounds Present, Soft, Non Tender Extremities: No clubbing, No cyanosis, No edema Musculoskeletal: - - Right inguinal area: Pulses 2+/4+; no bruit; no hematoma Psych/Mental Status: Appropriate Vital Signs Temp Pulse Resp BP Pulse Ox 98.2 F 61 12 120/85 H 97 04/11/18 07:00 04/11/18 08:33 04/11/18 08:00 04/11/18 08:00 04/11/18 08:00 Oxygen Delivery Method Room Air Weight: 174 lb 9.698 oz Body Mass Index (BMI) 27.3 Intake and Output for Last 24 Hours Intake Total 1400 / 1400 600 / 600 Balance 1400 / 1400 600 / 600 Laboratory Tests Past 24 Hrs WBC 4.1 L RBC 3.85 L Hgb 11.6 L Discharge Diet: No Restrictions - You may continue your normal diet. May shower in (days): 1 May resume sexual activity in: 1 week - if no groin problems occur. Additional Activity Instructions:: You must have someone drive you home. Do not drive until instructed by your doctor. You must have someone stay with you all night after your test. Rest in bed or on the couch until the next morning. Limit the number of times you go up and down stairs the day of your test. Call your doctor if your incision/area has: Increased Pain/ Swelling, Increased Redness, Foul Smelling Discharge, Swelling at the incision site Call your doctor if you observe: Fever of 101 or Higher Remove Dressing in (days):: 1 Additional Dressing/Incision Instructions:: Keep the dressing (bandage) on until the next morning. You may then shower, but do not take a tub bath for 5 days after your test. It is normal to have some tenderness and discomfort at the puncture site. Sometimes bruising also occurs. However, if pain, numbness, or coldness occurs below the puncture site (in your leg, toes, arms or fingers) call your doctor at once. You may have a small, marble sized knot at the puncture site. This is normal. Do not rub it. It will go away in 4-6 weeks. Bleeding can occur from the area where the puncture was done. Blood may spurt or drip from the site. If blood spurts, apply pressure right away to stop bleeding and call 911. Although rare, bleeding into the tissue (hematoma) can also occur. If this happens, a large, firm area goose egg under the skin will appear. If any of these occur, lie down as flat as you can and have someone apply firm pressure to the cath site with a gauze pad or a clean washcloth for 10-15 minutes. Call 911 or go to the Emergency Department. Home Medications: Medications to take at Discharge albuterol sulfate HFA 90 mcg/actuation aerosol inhaler 2 puff INHALATION Q4H PRN g 04/08/18 aspirin 81 mg tablet,delayed release 81 mg PO DAILY #30 tab 04/08/18 budesonide-formoterol HFA 160 mcg-4.5 mcg/actuation aerosol inhaler 2 puff INHALATION BID 04/08/18 bupropion HCl XL 300 mg 24 hr tablet, extended release 300 mg PO QAM 04/08/18 clonazepam 0.5 mg tablet 0.5 mg PO BID 04/08/18 clopidogrel 75 mg tablet 75 mg PO DAILY #30 tab 04/08/18 isosorbide mononitrate ER 30 mg tablet,extended release 24 hr 30 mg PO QAM #30 tab 04/08/18 metoprolol tartrate 25 mg tablet 25 mg PO BID #60 tab 04/08/18 nitroglycerin 0.4 mg sublingual tablet 0.4 mg SUBLINGUAL Q5- 15M PRN #90 tab 04/08/18 Nitroglycerin [Nitrostat] 0.4 mg SUBLINGUAL Q5M PRN 04/09/18 Atorvastatin Calcium [Lipitor] 80 mg PO QHS #30 tablet 04/11/18 atorvastatin 80 mg tablet 80 mg PO QPM #30 tab 04/11/18 Following Prescrptions Were Given to Patient: Atorvastatin Calcium [Lipitor] 80 mg PO QHS #30 tablet Other Amb Orders: Phase II, Outpatient Cardiac Rehab Location: None Selected Primary Care Physician: Antonio Santacruz MD [Primary Care Provider] - Please Follow Up With: Marlyn Lennon PA When: 04/23 at 2pm Additional Instructions: You were started on a cholesterol lowering medication we can further discuss this at your next visit. You will need to have labs monitored with this You will need to stay on your plavix for at least one year. Minutes spent on discharge:: 45 Patient Condition:: Stable Medical Necessity - Tobacco Use Smoking Status: Former smoker Meaningful Use Info Meaningful Use Diagnoses (Choose all that apply): None applicable 04/11/18 0955 <Electronically signed by Otoniel Reynoso MD> Date Otoniel Reynoso MD Cosigner Signature (if applicable): Date CC: Antonio Santacruz MD; Otoniel Reynoso MD; Otoniel Gates MD Signed BASIC METABOLIC Collected: 04/11/2018 Status: F Source: [place] PROFILE (BMP) 4:30 AM [facility] REPOSITORY TYPE CODE TESTS RESULT OUT OF RANGE REFERENCE UNITS LAB L501.0100 74-106 mg/dL High GLU 121 Result Comment: Fasting Glucose result from 100 to 125 mg/dL suggests IMPAIRED HOMEOSTASIS per A.D.A. criteria. Please note revised GLUCOSE reference range effective 2017. LAB L501.1000 7-18 mg/dL Normal BUN 15 LAB L501.1100 0.55-1.02 mg/dL Normal CREAT,SERUM 0.94 Result Comment: The validity of the calculated GFR AND GFRAA in patients over 70 years has not been determined. Clinical correlation is essential. LAB L501.1110 >60 mL/min Normal EST GFR 64 Result Comment: Non- GFR Calc LAB L501.1115 >60 mL/min Normal EST GFR - AA 78 Result Comment: GFR Calc LAB L501.1255 ml/min Normal Estimated CRCL 61.12 LAB L501.1300 10-20 RATIO Normal BUN/CRE 15.9 LAB L501.2200 8.5-10 mg/dL Low .1 CA 8.3 LAB L501.5300 136-14 mmol/L Normal 5 NA 145 LAB L501.5600 3.5-5. mmol/L Normal 1 K 3.8 LAB L501.5900 98-107 mmol/L High CL 112 LAB L501.6100 21.0-3 mmol/L Normal 2.0 CO2 23.0 LAB L501.6200 5-15 Normal GAP 10 Performed By: #### L500.2500, L500.4100 #### [facility] [address] [place], [address] LIPID PROFILE Collected: 04/11/2018 Status: F Source: [place] 4:30 AM [facility] REPOSITORY TYPE CODE TESTS RESULT OUT OF RANGE REFERENCE UNITS LAB L501.4900 200 mg/dL High CHOL 212 Result Comment: <200 mg/dL Desirable 200-240 mg/dL Borderline >240 mg/dL High Risk LAB L501.5000 mg/dL High TRIG 223 Result Comment: The drugs N-Acetylcysteine and Metamizole may falsely depress this assay. Serum Triglycerides Reference Interval Normal <150 mg/dL Borderline high 150 - 199 mg/dL High 200 - 499 mg/dL Very High > or = 500 mg/dL LAB L501.6400 mg/dL Normal HDL 54 Result Comment: The drugs N-Acetylcysteine and Metamizole may falsely depress this assay. Reference Range HDL <40 mg/dL Low HDL Cholesterol HDL >or= 60 mg/dL High HDL Cholesterol LAB L501.6500 0-130 mg/dL Normal LDL 113 LAB L501.6600 5-40 mg/dL High VLDL 45 Performed By: #### L500.2500, L500.4100 #### [facility] [address] [place], [address] CBC-COMPLETE BLOOD CNT Collected: 04/11/2018 Status: F Source: [place] NO DIFF 4:30 AM [facility] REPOSITORY TYPE CODE TESTS RESULT OUT OF RANGE REFERENCE UNITS LAB L100.1000 4.4-11.0 K/mm3 Low WBC 4.1 LAB L100.1200 4.2-5.4 M/mm3 Low RBC 3.85 LAB L100.1300 12.0-15.0 g/dl Low HGB 11.6 LAB L100.1400 37-47 % Low HCT 36.4 LAB L100.1500 81-99 fL Normal MCV 94.5 LAB L100.1600 27.0-32.0 pg Normal MCH 30.1 LAB L100.1700 32-36 g/gl Low MCHC 31.9 LAB L100.1810 11.6-14.6 % Normal RDW CV 13.2 LAB L100.1820 35.1-43.9 fl High RDW SD 45.7 LAB L100.1900 150-450 K/mm3 Normal PLT 224 LAB L100.2000 6.2-12.0 fl Normal MPV 9.4 Performed By: #### L100.0500 #### [facility] [address] [place], [address] ACT ACTIVATED CLOTTING Collected: 2018 Status: F Source: [place] TIME 10:26 AM [facility] REPOSITORY TYPE CODE TESTS RESULT OUT OF RANGE REFERENCE UNITS LAB L9100.0100 74-137 sec High ACTk CLOT 164 TIME Performed By: #### L9100.0100 #### [facility] Point of Care [address] [place] [address] ECHOCARDIOGRAM COMPLETE Observed: 04/09/2018 Status: F Source: [place] 4:46 PM [facility] REPOSITORY [facility] Cardiovascular Services [address] [place] [address] Echo Complete 04/09/18 1034 MR#: [id number] Acct: [id number] Name: GAL BOURGEOIS Rep #: [id number] : 1955 62 From: Otoniel Reynoso MD Attending Dr: Otoniel Reynoso MD Status: PRE [facility] Ordering Dr: Otoniel Reynoso MD Date: 04/09/18 Location: [facility] Sex: F C Admitted: Reason For Study: CP Procedure This was a 2D Doppler, Color Flow transthoracic echocardiogram. The study was technically difficult. Exam performed in department. Left Ventricle Normal LV size. Segmental dysfunction with preserved ejection fraction (see wall motion). The estimated ejection fraction is 55 %. No evidence for diastolic dysfunction. Mid-inferoseptal : Hypokinetic. Mid-anteroseptal : Hypokinetic. Right Ventricle Normal RV size. Normal systolic function. Atria The left atrium is mildly enlarged. Normal right atrium. No doppler evidence for ASD. Mitral Valve There is no mitral annular calcification. Normal mitral valve. Trivial mitral valve insufficiency. Tricuspid Valve Normal tricuspid valve. Mild tricuspid valve insufficiency. Right ventricular systolic pressure estimated to be 16 mmHg. Aortic Valve Trisinus/trileaflet aortic valve. Normal aortic valve. Trivial aortic valve insufficiency. Pulmonic Valve The pulmonic valve is not well visualized. Great Vessels Normal sized aortic root. Pericardium/Pleural No pericardial effusion. MMode/2D Measurements AND Calculations LVIDd: 4.0 cm IVSd: 1.6 cm LA dimension: 3.6 cm LVIDs: 2.7 cm LVPWd: 0.96 cm RVDd: 3.8 cm FS: 33.0 % LAV(MOD-sp4): 66.4 ml LA A4 area: 21.6 cm2 RA A4 area: 17.1 cm2 Time Measurements MV dec time: 0.41 sec Doppler Measurements AND Calculations MV E max blaine: 46.6 cm/sec Lat Peak E' Blaine: 5.6 cm/sec Med Peak E' Blaine: 5.9 cm/sec MV A max blaine: 66.3 cm/sec E/E' lat: 8.4 E/E' med: 7.8 MV E/A: 0.70 MV V2 max: 70.1 cm/sec MV P1/2t max blaine: 54.0 cm/sec Ao V2 max: 79.6 cm/sec MV max P.0 mmHg MV P1/2t: 152.2 msec Ao max P.5 mmHg MV V2 mean: 33.7 cm/sec MV dec slope: 104.0 cm/sec2 MV mean P.57 mmHg MVA(P1/2t): 1.4 cm2 MV V2 VTI: 30.0 cm LV V1 max: 67.9 cm/sec PA V2 max: 65.2 cm/sec TR max blaine: 181.3 cm/sec LV V1 max P.8 mmHg TR max P.1 mmHg Interpretation Summary The study was technically difficult. Segmental dysfunction with preserved ejection fraction (see wall motion). The estimated ejection fraction is 55 %. The left atrium is mildly enlarged. Trivial mitral valve insufficiency. Mild tricuspid valve insufficiency. Trivial aortic valve insufficiency. Right ventricular systolic pressure estimated to be 16 mmHg. No evidence for diastolic dysfunction. Ordering Physician: Otoniel Reynoso Referring Physician: Otoniel Reynoso Performed By: Davide Parikh RCS 04/09/182211 Date Otoniel Reynoso MD CC: Antonio Santacruz MD; Otoniel Reynoso MD Date Dictated: 04/09/18 1034 Date Transcribed: 04/09/182211 Skilled Labor: Signed CHEST PA AND LATERAL Observed: 04/09/2018 Status: F Source: [place] 10:07 AM [facility] REPOSITORY [facility] Imaging Services [address] [place], [place] [address] [address] Chest PA and Lateral MR#: [id number] Acct: [id number] Name: GAL BOURGEOIS Rep #: [id number] : 1955 F 62 From: Stephen Martinez MD PCP: Antonio Santacruz MD Status: PRE SDC Study: Chest PA and Lateral Date of Exam: 04/09/18 Exam# [id number] Ordering Dr: Otoniel Reynoso MD HISTORY: Short of Breath/Dyspnea EXAM:XR Chest 2 Views: COMPARISON: None FINDINGS: Normal heart size. Possible upper lobe emphysema.. No vascular congestion, pleural effusion, or acute pulmonary infiltration. No pneumothorax. The bony thorax appears intact. RAD/Chest PA and Lateral IMPRESSION: 1. No acute cardiopulmonary disease. 2. Possible upper lobe emphysema. at 0439 Reported and signed by: Stephen Martinez MD Electronically Signed: Stephen Martinez, at 4:38 EST Tel , Service support , CC: Antonio Santacruz MD; Otoniel Reynoso MD Skilled Labor: Signed PROTHROMBIN TIME W/INR Collected: 04/09/2018 Status: F Source: [place] 10:01 AM [facility] REPOSITORY TYPE CODE TESTS RESULT OUT OF RANGE REFERENCE UNITS LAB L300.4150 11.7-14.9 SECONDS Normal PROTIME 12.3 LAB L300.4200 Normal INR 0.9 Performed By: #### L300.3900, L300.4310 #### [facility] [address] [place], [address] PARTIAL THROMBOPLAST Collected: 04/09/2018 Status: F Source: [place] TIME 10:01 AM [facility] REPOSITORY TYPE CODE TESTS RESULT OUT OF RANGE REFERENCE UNITS LAB L300.4310 24.1-36.2 Seconds Normal PTT 26.9 Performed By: #### L300.3900, L300.4310 #### [facility] [address] [place], [address] BASIC METABOLIC Collected: 04/09/2018 Status: F Source: [place] PROFILE (BMP) 10:01 AM [facility] REPOSITORY TYPE CODE TESTS RESULT OUT OF RANGE REFERENCE UNITS LAB L501.0100 74-106 mg/dL Normal GLU 93 Result Comment: Please note revised GLUCOSE reference range effective 2017. LAB L501.1000 7-18 mg/dL High BUN 23 LAB L501.1100 0.55-1.02 mg/dL High CREAT,SERUM 1.05 Result Comment: The validity of the calculated GFR AND GFRAA in patients over 70 years has not been determined. Clinical correlation is essential. LAB L501.1110 >60 mL/min Low EST GFR 57 Result Comment: Non- GFR Calc LAB L501.1115 >60 mL/min Normal EST GFR - AA 69 Result Comment: GFR Calc LAB L501.1300 10-20 RATIO High BUN/CRE 21.9 LAB L501.2200 8.5-10.1 mg/dL CA Normal 9.1 LAB L501.5300 136-145 mmol/L NA Normal 139 LAB L501.5600 3.5-5.1 mmol/L K Normal 4.6 LAB L501.5900 98-107 mmol/L CL Normal 104 LAB L501.6100 21.0-32.0 mmol/L Normal CO2 29.0 LAB L501.6200 5-15 Normal GAP 6 Performed By: #### L500.2500 #### [facility] [address] [place], [address] CBC W/DIFF, AUTOMATED Collected: 04/09/2018 Status: F Source: [place] 10:00 AM [facility] REPOSITORY TYPE CODE TESTS RESULT OUT OF RANGE REFERENCE UNITS LAB L100.1000 4.4-11.0 K/mm3 Low WBC 3.9 LAB L100.1200 4.2-5.4 M/mm3 Normal RBC 4.41 LAB L100.1300 12.0-15.0 g/dl Normal HGB 13.3 LAB L100.1400 37-47 % Normal HCT 41.5 LAB L100.1500 81-99 fL Normal MCV 94.1 LAB L100.1600 27.0-32.0 pg Normal MCH 30.2 LAB L100.1700 32-36 g/gl Normal MCHC 32.0 LAB L100.1810 11.6-14.6 % Normal RDW CV 12.9 LAB L100.1820 35.1-43.9 fl High RDW SD 44.4 LAB L100.1900 150-450 K/mm3 Normal PLT 270 LAB L100.2000 6.2-12.0 fl Normal MPV 9.7 LAB L100.2100 47-70 % Low NEUT% 42.5 LAB L100.2200 19-41 % High LY% 42.2 LAB L100.2300 0-10 % Normal MONO% 8.1 LAB L100.2400 0-5 % High EO% 5.9 LAB L100.2500 0-1 % Normal BASO% 1.0 LAB L100.2550 0.0-0.9 % Normal IM GRAN % 0.300 Result Comment: IG% - Immature Granulocytes (promyelocytes, myelocytes and metamyelocytes) > 1% indicates that a LEFT SHIFT is Present. LAB L100.2620 2.0-7.7 X10 3/uL Low Absolute Neut 1.7 LAB L100.2720 0.83-4.51 X10 3/ul Normal Absolute Lymph 1.66 Performed By: #### L100.0100 #### [facility] [address] [place], [place], [address] CARDIOLOGY VISIT Observed: 04/08/2018 Status: F Source: [place] REPORT 5:35 PM [facility] REPOSITORY [facility] [address] [place] [address] OFFICE VISIT Date of Service: 04/08/18 MR#: [id number] Acct: [id number] Name: GAL BOURGEOIS Rep #: [id number] : 1955 Provider: Otoniel Reynoso MD Age/Sex: 62/F Location: [facility] Status: Signed HPI HPI Details: GAL BOURGEOIS, is a 62 F who presents to the office today for outpatient cardiovascular consultation for concerns of angina pectoris and an abnormal ECG. She states for some time now she has been having chest discomfort. She describes this with a clenched fist over the center of her chest. She notes that it feels as if she is in a vice script girl. She notes that this is for the most part when she is exerting herself and/or with exposure to the recent cold air. However she states sometimes at night after getting ready for bed she also experiences this. She has tried to treat this by slowing down and deep breathing. She has undergone evaluation by her PCP which is raise concerns about the possibility of underlying pulmonary disease. However she presented back to her PCP recently for the aforementioned concerns. An ECG was performed. She was noted to have sinus rhythm/sinus bradycardia with poor R wave progression with an anteroseptal infarct pattern of indeterminate age cannot be excluded and T wave changes in the anterior leads. She denies ongoing orthopnea or PND. There is been no obvious peripheral pitting edema. There has been no near syncope or syncope. She states that she may have had a diaphoretic spell with 1 of her events. She had a follow-up ECG in the office today. Again she has sinus rhythm with an occasional PAC with poor R wave progression as well as a possible septal HI pattern of indeterminate age. Of note her T wave changes which were previously somewhat inverted in her anteroseptal leads have resolved to baseline. Of note she did have a treadmill stress test performed in September 2017. At that time it was considered negative for evidence of myocardial ischemia. This was a non-imaging stress test per Intake Vital Signs04/08/18 Height 5 ft 7 in 04/08/18 Weight: 174 lb 04/08/18 Body Mass Index (BMI) 27.2 04/08/18 Blood Pressure 102/74 Intake Visit Reasons: New Pt\PFM\REF. dR. Gates Allergies No Known Allergies Allergy (Verified 04/08/18 16:21) Medications albuterol sulfate HFA 90 mcg/actuation aerosol inhaler 2 puff INHALATION Q4H PRN g 04/08/18 [History Confirmed 04/08/18] aspirin 81 mg tablet,delayed release 81 mg PO DAILY #30 tab 04/08/18 [Rx Confirmed 04/08/18] budesonide-formoterol HFA 160 mcg-4.5 mcg/actuation aerosol inhaler 2 puff INHALATION BID 04/08/18 [History Confirmed 04/08/18] bupropion HCl XL 300 mg 24 hr tablet, extended release 300 mg PO QAM 04/08/18 [History Confirmed 04/08/18] clonazepam 0.5 mg tablet 0.5 mg PO BID 04/08/18 [History Confirmed 04/08/18] clopidogrel 75 mg tablet 75 mg PO DAILY #30 tab 04/08/18 [Rx Confirmed 04/08/18] isosorbide mononitrate ER 30 mg tablet,extended release 24 hr 30 mg PO QAM #30 tab 04/08/18 [Rx Confirmed 04/08/18] metoprolol tartrate 25 mg tablet 25 mg PO BID #60 tab 04/08/18 [Rx Confirmed 04/08/18] nitroglycerin 0.4 mg sublingual tablet 0.4 mg SUBLINGUAL Q5- 15M PRN #90 tab 04/08/18 [Rx Confirmed 04/08/18] PFSH Medical History Dyspnea on exertion (Acute) Abnormal EKG (Acute) Chest pain (Acute) Surgical History History of cholecystectomy (Resolved) Family History Mother Heart disease Father CAD (coronary artery disease) History of coronary artery bypass surgery Congestive heart failure (CHF) Social History Smoking Status: Former smoker alcohol intake: current details: glass of wine daily substance use type: does not use ROS Const Const: Positive for fatigue (increased); negative for weakness, weight gain, weight loss, frequent falls or excessive sweating Eyes Eyes: Negative for change in vision, blurry vision or transient loss of vision ENT ENT: Negative for dizziness or balance problems Cardio Chest Pain: Yes Character: tightness, other (heaviness) Onset: at rest, exercise Location: mid sternal Duration: hours (2) Exacerbation: exercise Relieving: positional (sitting up, inhalers, yoga breathing) Palpitations: No Edema: None Muscle aches with walking: None Additional Details: Patient reports that she has SOB; hard to catch my breath while experiencing CP Resp Respiratory: Positive for SOB with activity (new), SOB at rest (with CP), snoring (alot) and wheezing (occasional) GI GI: Negative vomiting or vomiting blood/hematemesis : Negative for hematuria Musc Musc: Negative for balance problems, muscle aches/ myalgia, muscle weakness or joint pain Skin Skin: Negative non-healing lesions or rash Neuro Neuro: Negative for weakness, blurry vision, dizziness, lightheadedness, frequent falls or orthostatic symptoms Raz Hematologic/Lymphatic: Negative for easy bleeding Endo Endo: Positive for fatigue (increased); negative for excessive sweating Psych Psych: Negative for anxiety or depression Allergy Allergy/Immunology: Negative for hives, Negative for rash Cardiology Exam Const Appearance: cooperative, healthy appearing, comfortable, no acute distress and well developed Nutritional Appearance: average body habitus Orientation: alert Head Head: normal to inspection, normocephalic and atraumatic Ears: hearing grossly normal bilaterally Nose: external nose normal Face and Sinus: face symmetric Mouth: oral mucosae normal Teeth and gingiva: fair dentition Eyes Eyelids: eyelids normal Conjunctivae: conjunctivae normal Pupils: PERRL EOM: EOM intact bilaterally Neck Neck: normal visual inspection and full ROM Carotids: normal carotid upstroke Chest Chest inspection: normal inspection of the chest, symmetric chest movement and normal respiratory effort Auscultation: Bilateral: Clear to Auscultation Cardio Palpation: normal PMI Rate: regular rate Rhythm: regular rhythm Heart sounds: S1 normal and S2 normal GI GI: normal to inspection, bowel sounds present and soft Neuro General: alert, awake, oriented x3 and moves all extremities Skin Skin: no rashes or lesions noted Extremities Pulses: Normal: Right Radial Pulse, Left Radial Pulse Lower Extremity Edema: None: Bilateral Psych Psychological: normal affect Assessment AND Plan 1. Angina pectoris I20.9 Plan The patient does have cardiovascular risk factors which was back to her family history. She was also noted in July 2017 to have elevated lipid profile with total cholesterol and LDL cholesterols. She does not have a history of hypertension or diabetes mellitus. She has symptoms concerning for angina pectoris occurring both with exertion but also at rest. She also has dynamic T wave changes on her electrocardiograms. From a cardiac standpoint it was felt the patient would be further evaluated. This will include an echocardiogram to evaluate her left ventricular wall motion and systolic function. It would also include a cardiac catheterization to evaluate her coronary anatomy. In the interim the patient will be placed on additional medical management. This will include agents such as aspirin, [place]/Plavix, nitrates, and beta blockers. She will also need to be considered for lipid-lowering agents. 2. Chest pain, unspecified R07.9 Plan Again she does have chest pain. The concern is angina pectoris. She will undergo evaluation and care as noted above 3. Dyspnea on exertion R06.09 Plan She does get short of breath and dyspneic with her symptoms especially with exertion. This may be part of her angina pectoris. She will continue evaluation care as noted above Orders Orders: 4. Abnormal electrocardiogram R94.31 Plan Her electrocardiogram is as described above. Again there are concerns of dynamic T wave changes. She will undergo the aforementioned evaluation and care Orders Orders: Plan Detail Other Medications New: Additional Comments The cardiac catheterization procedure and risks were discussed with the patient and her . They did watch the cardiac catheterization videotape. They were agreeable to proceeding in this fashion. Thank you for allowing me to participate in the care of your patient. Please don't hesitate to call if any issues arise. This note was generated using a voice recognition system and there may be incorrect words, spelling or punctuation that were not noted when reviewing the office note prior to saving. Coding Level of Care Code Off vis,new,level 5 Diagnoses Angina pectoris I20.9 Chest pain, unspecified R07.9 Dyspnea on exertion R06.09 Abnormal electrocardiogram R94.31 Coding Level of Care Code Off vis,new,level 5 Diagnoses Angina pectoris I20.9 Chest pain, unspecified R07.9 Dyspnea on exertion R06.09 Abnormal electrocardiogram R94.31 Supplemental Info Supplemental Information Labs LDL Cholesterol 136 mg/dL (0-130) H 08/29/17 HDL Cholesterol 54 mg/dL (40-) 08/29/17 Triglycerides 185 mg/dL (-199) 08/29/17 VLDL Cholesterol 37 mg/dL (5-40) 08/29/17 Diagnostics Electrocardiogram 04/08/18 Stress Test 10/01/17 04/08/18 5235 <Electronically signed by Otoniel Reynoso MD> Date Otoniel Reynoso MD Cosigner Signature: Date (if applicable) CC: Antonio Santacruz MD 12 LEAD EKG PERFORMED Observed: 04/08/2018 Status: F Source: [place] [facility] 4:17 PM [facility] REPOSITORY [facility] [address] [place] [address] 12 Lead EKG performed by [facility] 04/08/18 1616 MR#: [id number] Acct: [id number] Name: GAL BOURGEOIS Rep #: [id number] : 1955 62 From: Otoniel Reynoso MD Attending Dr: Otoniel Reynoso MD Status: DEP [facility] Ordering Dr: Otoniel Reynoso MD Date: 04/08/18 Location: [facility] Sex: F C Admitted: [facility]/12 Lead EKG performed by [facility] ECG Report Interpretation Sinus Rhythm - occasional PAC Poor R wave progressionAnterospetal HI, age undetermined, cannot be excludedAbnormalElectronically signed on 04/08/2018 at 17:51 by Otoniel Reynoso Software Version 8610 04/08/18 2687 Date Otoniel Reynoso MD CC: Antonio Santacruz MD Date Dictated: 04/08/181615 Date Transcribed: 04/08/181615 Skilled Labor: PM Signed STRESS REPORT Observed: 10/01/2017 Status: F Source: [place] 5:23 PM [facility] REPOSITORY [facility] Cardiovascular Services [address] [place] [address] MR#: [id number] Acct: [id number] Name: GAL BOURGEOIS Rep #: [id number] : 1955 62 From: Dereck Sterling MD Primary Care: Antonio Santacruz MD Status: REG CLI Ordering Dr: Sex: F C Stress Test Report Exercise stress test. 62-year-old lady with a history of chest pain. Medications Wellbutrin. Stress protocol resting EKG demonstrates sinus bradycardia with a rate of 55 bpm normal intervals and noted resting blood pressures 116/72 mmHg. The patient exercised according to regular Brad protocol for total duration of 5 minutes the maximum heart rate attained was 139 bpm which is 83% maximum predicted heart rate the maximum workload was 6.9 metabolic equivalents. The patient maintained sinus rhythm throughout the recording at rest there were no ST or T-wave changes noted suggest ischemia peak exercise upsloping ST changes only were noted with no meet the criteria for ischemia. The resting blood pressure is 116/72 with a peak blood pressure 146/70 mmHg. No clinical angina was noted the test was terminated due to leg fatigue there was dyspnea also noted. Conclusion 1 Stress test with no EKG criteria for ischemia at a moderate workload Marked shortness of breath. 10/01/171722 <Electronically signed by Dereck Sterling MD> Date Dereck Sterling MD CC: Antonio Santacruz MD Date Dictated: 10/01/171720 Date Transcribed: 10/01/171720 Skilled Labor: CO Signed CBC-COMPLETE BLOOD CNT Collected: 08/29/2017 Status: F Source: [place] NO DIFF 11:09 AM [facility] REPOSITORY Order Comment: Order Date: 05/30/18 Order Info: [id number] - CBC TYPE CODE TESTS RESULT OUT OF RANGE REFERENCE UNITS LAB L100.1000 4.4-11.0 K/mm3 Low WBC 3.1 LAB L100.1200 4.2-5.4 M/mm3 Normal RBC 4.36 LAB L100.1300 12.0-15.0 g/dl Normal HGB 13.3 LAB L100.1400 37-47 % Normal HCT 39.9 LAB L100.1500 81-99 fL Normal MCV 91.5 LAB L100.1600 27.0-32.0 pg Normal MCH 30.5 LAB L100.1700 32-36 g/gl Normal MCHC 33.3 LAB L100.1810 11.6-14.6 % Normal RDW CV 12.7 LAB L100.1820 35.1-43.9 fl Normal RDW SD 41.9 LAB L100.1900 150-450 K/mm3 Normal PLT 286 LAB L100.2000 6.2-12.0 fl Normal MPV 9.4 Performed By: #### L100.0500, L500.4050, L500.4100, L501.9520 #### [facility] [address] [place], [address] COMPREHENSIVE METABOLIC Collected: 08/29/2017 Status: F Source: [facility] 11:09 AM [facility] REPOSITORY Order Comment: Order Date: 08/29/17 Order Info: [id number] - CMP Order Info: [id number] - LIPID Order Info: 3016-3 - TSH TYPE CODE TESTS RESULT OUT OF RANGE REFERENCE UNITS LAB L501.0100 74-106 mg/dL Normal GLU 84 Result Comment: Please note revised GLUCOSE reference range effective 2017. LAB L501.1000 7-18 mg/dL High BUN 22 LAB L501.1100 0.55-1.02 mg/dL Normal CREAT,SERUM 0.77 Result Comment: The validity of the calculated GFR AND GFRAA in patients over 70 years has not been determined. Clinical correlation is essential. LAB L501.1110 >60 mL/min Normal EST GFR 81 Result Comment: Non- GFR Calc LAB L501.1115 >60 mL/min Normal EST GFR - AA 98 Result Comment: GFR Calc LAB L501.1300 10-20 RATIO High BUN/CRE 28.6 LAB L501.1500 6.4-8.2 g/dL T Normal PROT 7.6 LAB L501.1800 3.2-5.0 g/dL Normal ALB 3.8 LAB L501.1950 2.2-4.2 g/dL Normal GLOB 3.8 LAB L501.2000 0.9-2.4 RATIO Normal A/G 1.0 LAB L501.2200 8.5-10.1 mg/dL CA Normal 9.1 LAB L501.4100 15-37 U/L Low AST 13 LAB L501.4305 45-117 U/L Normal ALK P 84 LAB L501.4405 13-56 U/L Normal ALT 21 LAB L501.4600 0.20-1.00 mg/dL T Normal BILI 0.40 LAB L501.5300 136-145 mmol/L NA Normal 141 LAB L501.5600 3.5-5.1 mmol/L K Normal 4.3 LAB L501.5900 98-107 mmol/L High CL 108 LAB L501.6100 21.0-32.0 mmol/L Normal CO2 25.0 LAB L501.6200 5-15 Normal GAP 8 Performed By: #### L100.0500, L500.4050, L500.4100, L501.9520 #### [facility] [address] [place], [address] LIPID PROFILE Collected: 08/29/2017 Status: F Source: [place] 11:09 AM [facility] REPOSITORY Order Comment: Order Date: 08/29/17 Order Info: [id number] - CMP Order Info: [id number] - LIPID Order Info: 3016-3 - TSH TYPE CODE TESTS RESULT OUT OF RANGE REFERENCE UNITS LAB L501.4900 200 mg/dL High CHOL 227 Result Comment: <200 mg/dL Desirable 200-240 mg/dL Borderline >240 mg/dL High Risk LAB L501.5000 mg/dL Normal TRIG 185 Result Comment: The drugs N-Acetylcysteine and Metamizole may falsely depress this assay. Serum Triglycerides Reference Interval Normal <150 mg/dL Borderline high 150 - 199 mg/dL High 200 - 499 mg/dL Very High > or = 500 mg/dL LAB L501.6400 mg/dL Normal HDL 54 Result Comment: The drugs N-Acetylcysteine and Metamizole may falsely depress this assay. Reference Range HDL <40 mg/dL Low HDL Cholesterol HDL >or= 60 mg/dL High HDL Cholesterol LAB L501.6500 0-130 mg/dL High LDL 136 LAB L501.6600 5-40 mg/dL Normal VLDL 37 Performed By: #### L100.0500, L500.4050, L500.4100, L501.9520 #### [facility] [address] [place], [address] THYROID STIM HORMONE Collected: 08/29/2017 Status: F Source: [place] ([facility]) 11:09 AM [facility] REPOSITORY Order Comment: Order Date: 08/29/17 Order Info: [id number] - CMP Order Info: [id number] - LIPID Order Info: 3016-3 - TSH TYPE CODE TESTS RESULT OUT OF RANGE REFERENCE UNITS LAB L501.9520 0.358-3.74 uIU/mL Normal TSH 2.20 Performed By: #### L100.0500, L500.4050, L500.4100, L501.9520 #### [facility] [address] [place], [address] TRANSVAGINAL Observed: 05/17/2017 Status: F Source: [place] NON- 12:40 PM [facility] REPOSITORY [facility] Imaging Services [address] [place] [address] Transvaginal Non- MR#: [id number] Acct: [id number] Name: GAL BOURGEOIS Rep #: [id number] : 1955 F 62 From: Kenny Loyola MD PCP: Antonio Santacruz MD Status: REG CLI Study: Transvaginal Non- Date of Exam: 05/17/17 Exam# [id number] Ordering Dr: Noni Parekh MD STUDY: ULTRASOUND OF THE FEMALE PELVIS - COMPLETE REASON FOR EXAM: Female, 62 years old. Left lower quadrant pain. LMP: The patient is postmenopausal. TECHNIQUE: Transabdominal and Transvaginal TECHNICAL QUALITY: Adequate. COMPARISON: None. FINDINGS: The uterus is anteverted and is in a midline position. The uterus measures 5.8 cm x 3.8 cm x 2.5 cm. There is a large Nabothian cyst of the cervix measuring 2 cm x 2.6 cm x 1.2 cm.. The endometrium measures 1.1 mm in thickness, and is hyperechoic. There is no demonstrated endometrial mass. There is a small uterine fibroid measuring 9 mm x 10 mm x 8 mm. I.U.D. - The patient does not have an I.U.D. The right ovary is visualized. The right ovary measures 1.7 cm x 1.2 cm x 1.6 cm. A follicle is seen within the ovary measuring 1 cm x 1 cm x 0.7 cm. There is no visualized right adnexal mass or complex lesion. There is normal arterial and normal venous vascularity. The left ovary is visualized. The left ovary measures 1.8 cm x 1.9 cm x 1.5 cm. There is no left ovarian cyst or ovarian mass. There is no visualized left adnexal mass or complex lesion. There is normal arterial and normal venous vascularity. There is no fluid in the cul-de-sac. The pre void volume of the bladder was 680 ml. US/Transvaginal Non- IMPRESSION: Large nabothian cyst. Small uterine fibroid. 1 cm x 1 cm x 0.7 cm right ovarian follicle. Electronically Signed: Kenny Loyola MD at 15:47 EST Tel [phone], Service support , CC: Noni Parekh MD; Antonio Santacruz MD Skilled Labor: Signed PELVIC (NON ) Observed: 05/17/2017 Status: F Source: [place] 12:21 PM [facility] REPOSITORY [facility] Imaging Services [address] [place] [address] Pelvic (Non ) MR#: [id number] Acct: [id number] Name: GAL BOURGEOIS Rep #: [id number] : 1955 F 62 From: Kenny Loyola MD PCP: Antonio Santacruz MD Status: REG CLI Study: Pelvic (Non ) Date of Exam: 05/17/17 Exam# [id number] Ordering Dr: Noni Parekh MD STUDY: ULTRASOUND OF THE FEMALE PELVIS - COMPLETE REASON FOR EXAM: Female, 62 years old. Left lower quadrant pain. LMP: The patient is postmenopausal. TECHNIQUE: Transabdominal and Transvaginal TECHNICAL QUALITY: Adequate. COMPARISON: None. FINDINGS: The uterus is anteverted and is in a midline position. The uterus measures 5.8 cm x 3.8 cm x 2.5 cm. There is a large Nabothian cyst of the cervix measuring 2 cm x 2.6 cm x 1.2 cm.. The endometrium measures 1.1 mm in thickness, and is hyperechoic. There is no demonstrated endometrial mass. There is a small uterine fibroid measuring 9 mm x 10 mm x 8 mm. I.U.D. - The patient does not have an I.U.D. The right ovary is visualized. The right ovary measures 1.7 cm x 1.2 cm x 1.6 cm. A follicle is seen within the ovary measuring 1 cm x 1 cm x 0.7 cm. There is no visualized right adnexal mass or complex lesion. There is normal arterial and normal venous vascularity. The left ovary is visualized. The left ovary measures 1.8 cm x 1.9 cm x 1.5 cm. There is no left ovarian cyst or ovarian mass. There is no visualized left adnexal mass or complex lesion. There is normal arterial and normal venous vascularity. There is no fluid in the cul-de-sac. The pre void volume of the bladder was 680 ml. US/Pelvic (Non ) IMPRESSION: Large nabothian cyst. Small uterine fibroid. 1 cm x 1 cm x 0.7 cm right ovarian follicle. Electronically Signed: Kenny Loyola MD at 15:47 EST Tel [phone], Service support , CC: Noni Parekh MD; Antonio Santacruz MD Skilled Labor: Signed ALLERGIES ALLERGIES DATE TYPE / CODE NAME / CODE REACTION SEVERITY SOURCE 04/23/2018 Drug No Known Unknown [place] [facility] Allergy/4160 Allergies/F00 Hospital 27309(SNOMED 4139257(RXNOR Repository CT) M) ENCOUNTERS ENCOUNTERS ADMIT/DISCHARGE ACCOUNT ADMITTING ENCOUNTER LOCATION SOURCE NUMBER CLASS 04/26/2018 [id number] Ambulatory [place] 8 [facility] ing:CR Repository 04/23/2018/ [id number] Ambulatory BMSBuilding:B [place] 9 2 [facility] Repository 04/18/2018 [id number] Ambulatory [place] 6 [facility] ing:CR Repository 04/11/2018 [id number] Ambulatory BMSBuilding:B [place] 7 MS.CF.[facility] Repository 04/10/2018/ [id number] Ambulatory [place] 9 0 [facility] ing:CLSPRoom: Repository [id number] 04/09/2018 [id number] Ambulatory BMSBuilding:B [place] 2 MS.CF.[facility] Repository 04/08/2018/ [id number] Ambulatory BMSBuilding:B [place] 9 6 MS.[facility] Repository 04/08/2018 [id number] Ambulatory BMSBuilding:B [place] 8 MS[facility] Repository 10/01/2017 [id number] Ambulatory [place] 4 [facility] ing:[facility] Repository 10/01/2017 [id number] Ambulatory BMSBuilding:W [place] 7 [facility] Repository 08/29/2017 [id number] Ambulatory [place] 8 [facility] ing:MFPLAB Repository 05/17/2017 [id number] Ambulatory [place] 2 [facility] ing:US Repository PAYERS PAYERS ENCOUNTER GUARANTOR PAYER SUBSCRIBER SOURCE 04/26/2018 SATINDER Abdi Primary SATINDER Abdi [place] [id number] Insurance:CIGNAPolicy [place]OUR[place]: Community [place]: [id number] [id number] Repository [address]Wlm: (330) Date:2569-60-77Pw [phone] () 123557Jvwghmcnbvn, [place] [address]NW: 04/26/2018 Secondary NOT GIVENUNK [place] Insurance:SELF [facility]: Effective Repository Date:2018-04-18 04/23/2018 GAL Beckett Primary SATINDER Abdi [place] [id number] Insurance:CIGNAPolicy BOURNEDOB: Community [place] Number: [id number] [id number] Repository [address]Ljx: (330) Date:0057-65-55Sh [phone] () [id number], [place] [address]YF: 04/23/2018 Secondary NOT GIVENUNK [place] Insurance:SELF PAY [facility] Number: Effective Repository Date:2018-04-19 04/18/2018 SATINDER C Primary SATINDER Abdi [place] [id number] Insurance:CIGNAPolicy [place]OUR[place]EDOB: Community [place] Number: [id number], [place] [id number] Repository [address]Hub: (330) Date:5932-80-95Vk [phone] () 425796Spyikptmldg, [place] [address]MT: 04/18/2018 Secondary NOT GIVENUNK [place] Insurance:SELF PAY [facility] Number: Effective Repository Date:2018-04-12 04/11/2018 SATINDER C Primary SATINDER Abdi [place] [id number] Insurance:CIGNAPolicy [place]OUR[place]: Community [place] Number: [id number], [place] [id number] Repository [address]Ebf: (330) Date:1482-15-39Nz [phone] () [id number], [place] [address]AF: 04/11/2018 Secondary NOT GIVENUNK [place] Insurance:SELF [facility] Number: Effective Repository Date:2018-04-11 2018 SATINDER Abdi Primary SATINDER Abdi [place] [id number] Insurance:CIGNAPolicy [place]OURNEDOB: Community [place] Number: [id number], [place] [id number] Repository [address]Vyq: (330) Date:5490-65-81Ni [phone] () [id number], [place] [address]HE: 2018 Secondary NOT GIVENUNK [place] Insurance:SELF PAY [facility] Number: Effective Repository Date:2018-04-09 04/09/2018 SATINDER Abdi Primary SATINDER Abdi [place] [id number] Insurance:CIGNAPolicy [place]OUR[place]EDOB: Community [place] Number: [id number], [place] [id number] Repository [address]Msb: (330) Date:6626-12-21Rj [phone] () 186316Ygueavhlkwj, [place] [address]JB: 04/09/2018 Secondary NOT GIVENUNK [place] Insurance:SELF PAY [facility] Number: Effective Repository Date:2018-04-09 04/08/2018 Satinder Abdi Primary Satinder Abdi [place] [id number] Insurance:CIGNAPolicy BourneDOB: Community [place] Number: [id number] [place]aks, [place] [id number] Repository [address]Jyi: (330) Date:9423-93-89Pw [phone] () [id number], [place] [address]XZ: 04/08/2018 Secondary NOT GIVENUNK [place] Insurance:SELF PAY [facility] Number: Effective Repository Date:2018-04-08 04/08/2018 Satinder Abdi Primary Satinder Abdi [place] [id number] Insurance:CIGNAPolicy BourneDOB: Community [place] Number: [id number] [place]aks, [place] [id number] Repository [address]Itx: (330) Date:7167-36-13Ee [phone] () 409344Jnxaifxrqqs, [place] [address]IJ: 04/08/2018 Secondary NOT GIVENUNK [place] Insurance:SELF PAY [facility] Number: Effective Repository Date:2018-04-08 10/01/2017 Satinder Abdi Primary Satinder Abdi [place] [id number] Insurance:CIGNAPolicy BourneDOB: Community [place] Number: [id number] [place]aks, [place] [id number] Repository [address]Ifo: (330) Date:8052-47-75Xs [phone] () 607758Ddtleeggqvs, [place] [address]NG: 10/01/2017 Secondary NOT GIVENUNK [place] Insurance:SELF PAY [facility] Number: Effective Repository Date:2017-09-10 10/01/2017 Satinder Abdi Primary Satinder Abdi [place] [id number] Insurance:CIGNAPolicy BourneDOB: Community [place] Number: [id number] [place]aks, [place] [id number] Repository [address]Rzh: (330) Date:7662-47-09Sm [phone] () 266690Htpigdtizgy, [place] [address]FW: 10/01/2017 Secondary NOT GIVENUNK [place] Insurance:SELF PAY [facility] Number: Effective Repository Date:2017-10-01 08/29/2017 Satinder Abdi Primary Satinder Abdi [place] [id number] Insurance:CIGNAPolicy BourneDOB: Community [place] Number: [id number] [place]aks, [place] [id number] Repository 230[address]Lot: (330) Date:4802-29-90Mm [phone] () 264103Illjfpevmqo, [place] [address]MO: 08/29/2017 Secondary NOT GIVENUNK [place] Insurance:SELF PAY [facility] Number: Effective Repository Date:2017-08-29 05/17/2017 Satinder Abdi Primary Satinder Pichardo [id number] Insurance:CIGNAPolkeviny DinoraeDOB: Community [facility] Number: [id number] [place]aks, [place] [id number] Repository [address]Grt: 330) Date:8588-34-30Qe [phone] () 145901Aylizskagcb, [place] [address]EU: 05/17/2017 Secondary NOT GIVENUNK [place] Insurance:SELF PAY [facility] Number: Effective Repository Date:2017-05-14
== END ==
PROVIDERS: Family Provider Family Medicine; PCP Family Medicine; Referring Provider Internal Medicine Cardiovascular Disease; Visit Provider Internal Medicine Cardiovascular Disease
DX: Z95.5 Presence of coronary angioplasty implant and graft (principal)

== ENCOUNTER 2018-04-29 14:15 | Outpatient (RCR) | payer OTHER, SELFPAY ==
[2018-04-10 11:43] VITALS: BMI 27.3
== END 2018-05-02 23:59 ==
LOC: CR 14:15
PROVIDERS: Family Provider Family Medicine; PCP Family Medicine; Referring Provider Internal Medicine Cardiovascular Disease; Visit Provider Internal Medicine Cardiovascular Disease
DX: I25.10 Atherosclerotic heart disease of native coronary artery without angina pectoris (principal); Z95.5 Presence of coronary angioplasty implant and graft
CPT/HCPCS: 93798

== ENCOUNTER → 2018-05-15 13:42 | Outpatient (CLI) | payer OTHER, SELFPAY ==
[2018-05-15 13:42] VITALS: BMI 27.6
== END ==
PROVIDERS: Family Provider Family Medicine; PCP Family Medicine; Referring Provider Physician Assistant Medical; Visit Provider Physician Assistant Medical
DX: I25.10 Atherosclerotic heart disease of native coronary artery without angina pectoris (principal)

== ENCOUNTER → 2018-05-21 08:14 | Outpatient (CLI) | payer OTHER, SELFPAY ==
[2018-05-15 13:42] VITALS: BMI 27.6
[2018-05-21 09:12] LABS: AST(SGOT) 13 U/L (15-37); Alanine Aminotransfer ALT/SGPT 22 U/L (13-56); Albumin, Serum 4.1 g/dL (3.2-5.0); Alkaline Phosphatase 84 U/L (45-117); Bilirubin, Direct 0.15 mg/dL (0.00-0.30); Cholesterol 142 mg/dL (200); Globulin 3.6 g/dL (2.2-4.2); High Density Lipoprotein 63 mg/dL; Protein, Total 7.7 g/dL (6.4-8.2); Triglycerides 144 mg/dL; Very Low Density Lipoprotein 29 mg/dL (5-40)
== END ==
PROVIDERS: Family Provider Family Medicine; PCP Family Medicine; Referring Provider Physician Assistant Medical; Visit Provider Physician Assistant Medical
DX: E66.3 Overweight (principal)
CPT/HCPCS: 36415; 80061; 80076

== ENCOUNTER 2018-05-29 14:15 | Outpatient (RCR) | payer OTHER, SELFPAY ==
[2018-05-03 01:50] VITALS: BMI 27.3
--- NOTE | 2018-05-17 09:13 | PCM.CR.ITP ---
Exercise - 30-day Assessment - Visit Date of Eval: 05/17/18 Session #:: 9 - Stages of Change Stages of Change:: Action - Exercise Prescription Mode:: Treadmill, Rower, Airdyne, NuStep Frequency (x/week): 3 Duration:: 30-45 METs - Progression: 0.5-1 MET as tolerated: 4.5 Target Heart Rate:: 119-127 - Hypertension Resting Blood Pressure:: 104/62 Peak Exercise Blood Pressure:: 130/80 Medication Changes:: Yes - Intervention Home Exercise/Activity Goal:: Moderate Exercise 30 min/day x 5 days/wk - Education Goals:: Warm-up, RPE PAL Scale, S/S, Safe Exercise, Self-Monitoring - Exercise Program Goals Exercise Program Goals: Aerobic Activity >30 min Nutrition - 30-Day Assessment - Program Goals Nutrition Program Goals: LDL <70. Total Cholesterol <200. HDL >45. Triglycerides <150. HgbA1C <7%. BMI <25 - Visit Date of Eval: 05/17/18 - Stages of Change Stages of Change:: Action - Lipids Has the patient seen the dietitian?: No - Diabetes Diabetes:: No Insulin: No Non-Insulin Dependent?: No - Intervention Referral to dietitian:: No Referral to Diabetic Clinic:: No Will attend diet classes:: Yes - Education Attended class for:: Healthy eating Tobacco - 30-Day Assessment - Program Goals Tobacco Program Goals: Complete smoking cessation. Attend education classes. Improve Knowledge Test score - Stage of Change Stages of Change:: Action - Learning Barriers Learning Barriers: Participates in education - Family Support Do you have family support?: Yes - Tobacco Use Tobacco Use: Non-smoker Do you use smokeless tobacco?: No - Intervention Smoking Cessation Referral:: No Individual Education/Counseling:: No Education Schedule Given:: Yes - Education Attended class for:: Coronary artery disease, Risk factors, Sexuality, Medical compliance, Cardiac A&P, Angina signs & symptoms Psychosocial - 30-Day Assess - Target Goals Target Goals: Assess presence or absence of depression. Using a valid screening tool, maximizes coping skills. Positive support system - Stages of Change Stages of Change:: Action - Psychosocial Test Tool Used:: HANDS Depression Questionnaire - Intervention PS - Interventions: Yes Attend Stress Management Classes, No Referral to Mental Health, No Referral to [facility] Case Management, No Referral to Physician, No Uses Stress Management Skills - Education Attended classes for:: Coping techniques, Signs & symptoms of depression, Stress management, Relaxation techniques - Patient/Program Goal Preventative Medication(s):: Aspirin, Clopidogrel, Beta bay, Statin/lipid - Assistive Devices Assistive Devices:: None Patient Health Questionnaire 30-Day Re-eval Assessment 1. Little interest or pleasure in doing things: Not at all 2. Feeling down, depressed, or hopeless: Several days 3. Trouble falling or staying asleep, or sleeping too much: Several days 4. Feeling tired or having little energy: Not at all 5. Poor appetite or overeating: Not at all 6. Feeling bad about yourself -- or that you are a failure or have let yourself or your family down: Several days 7. Trouble concentrating on things, such as reading the newspaper or watching television: Not at all 8. Moving or speaking so slowly that other people could have noticed. Or the opposite - being so fidgety or restless that you have been moving around a lot more than usual: Not at all 9. Thoughts that you would be better off , or of hurting yourself in some way: Not at all How difficult have these problems made it for you to do your work, take care of things at home, or get along with other people?: Not difficult at all Total Score: 3 Self-Efficacy 30-Day Re-eval Assessment We would like to know how confident you are in doing certain activities. Please select your confidence level for:: Select your confidence level for the following using the scale 1-10 where 1 is not at all confident and 10 is totally confident. Your score is the average of all 6 responses. Fatigue: How confident are you that you can keep the fatigue caused by your disease from interfering with the things you want to do? Select Number: 6 Physical Discomfort or Pain: How confident are you that you can keep the physical discomfort or pain of your disease from interfering with the things you want to do? Select Number: 5 Emotional Distress: How confident are you that you can keep the emotional distress caused by your disease from interfering with the things you want to do? Select Number: 7 Other Symptoms or Health Problems: How confident are you that you can keep other symptoms or health problems from interfering with the things you want to do? Select Number: 8 Different Tasks and Activities: How confident are you that you can do the different tasks and activities needed to manage your health condition so as to reduce your need to see a doctor? Select Number: 8 Medication: How confident are you that you can do things other than just taking medication to reduce how much your illness affects your everyday life? Select Number: 10 Total Score:: 7
[2018-05-17 09:27] VITALS: BP 104/62; BP 130/80
== END 2018-05-30 23:59 ==
LOC: CR 14:15
PROVIDERS: Family Provider Family Medicine; PCP Family Medicine; Referring Provider Internal Medicine Cardiovascular Disease; Visit Provider Internal Medicine Cardiovascular Disease
DX: I25.10 Atherosclerotic heart disease of native coronary artery without angina pectoris (principal); Z95.5 Presence of coronary angioplasty implant and graft
CPT/HCPCS: 93798

== ENCOUNTER → 2018-06-13 12:49 | Outpatient (CLI) | payer OTHER, SELFPAY ==
[2018-06-04 13:06] VITALS: BMI 26.7
--- NOTE | 2018-06-13 13:00 | BD_ITS ---
STUDY: DUAL ENERGY X-RAY ABSORPTIOMETRY / DXA REASON FOR EXAM: Female, 63 years old. Early menopause. Loss of height. TECHNIQUE: Bone Mineral Density (BMD) measurements of lumbar spine and bilateral hips were obtained. COMPARISON: None. FINDINGS: Lumbar Spine (L1-L4): g/cm2 (0.963) / T-score (-1.8) / Z-score (-0.5) Findings are suggestive of osteopenia with a moderate fracture risk. Left Femur Total: g/cm2 (0.690) / T-score (-2.5) / Z-score (-1.5) Left Femoral Neck: g/cm2 (0.715) / T-score (-2.3) / Z-score (-1.0) Right Femur Total: g/cm2 (0.688) / T-score (-2.5) / Z-score (-1.6) Right Femoral Neck: g/cm2 (0.757) / T-score (-2.0) / Z-score (0.7) BD/Dexa Bone Density Study IMPRESSION: The patient is considered osteopenic as outlined below according to World Rafael Organization (WHO) criteria with a high fracture risk. Reference Information: The T-score is the number of standard deviations above or below the standard which is normal for young adults at their peak bone mineral density. The World Health Organization (WHO) interprets the T-scores as follows: Above -1 Normal bone density Between -1 and -2.5 Osteopenia Equal to / or below -2.5 Osteoporosis As a practical clinical guideline, osteopenia may be graded as follows: Mild -1 through -1.5 Moderate -1.6 through -2.0 Severe -2.1 through -2.4 The Z-score is the number of standard deviations above or below age-matched controls. A Z-score of less than -1.5 would be considered abnormal. References: 1. NIH Osteoporosis and Related Bone Diseases http://www.osteo.org 2. International Society for Clinical Densitometry http://www.iscd.org 3. National Osteoporosis Foundation http://www.nof.org Electronically Signed: Kenny Loyola, at 13:25 EDT , Service support ,
== END ==
PROVIDERS: Family Provider Family Medicine; PCP Family Medicine; Referring Provider Obstetrics & Gynecology; Visit Provider Obstetrics & Gynecology
DX: Z13.820 Encounter for screening for osteoporosis (principal)
CPT/HCPCS: 77080

== ENCOUNTER 2018-06-24 14:15 | Outpatient (RCR) | payer OTHER, SELFPAY ==
[2018-05-15 13:42] VITALS: BMI 27.6
[2018-05-31 01:25] VITALS: BP 104/62; BP 130/80
[2018-06-14 13:03] VITALS: BP 114/76; BP 150/82
--- NOTE | 2018-06-14 13:03 | CR.ITP_ITS ---
General Information - General Information Admitting Diagnosis: pci with stent - Education/Goals Barriers to Learning: None Cardiac Rehabilitation Goals: 1. Maintain the individual as the primary focus of care. 2. To improve the patient's quality of life. 3. Identification of cardiac risk factors and provide cardiac risk factor management. 4. Enhance the psychosocial status of the patient. 5. Reconditioning enough to allow the patient to resume customary activities. 6. Control symptoms of cardiac disease Scale for measuring improvement of personal goals: Enter appropriate number in Comments. 2 = Unchanged. 3 = Slightly Better. 4 = Moderate Improvement. 5 = Met my Goal Exercise - 60-Day Assessment - Visit Date of Eval: 06/14/18 Session #:: 19 - Stages of Change Stages of Change:: Action - Physician Prescribed Exercise Modalities: Treadmill, Airdyne, NuStep Intensity: 60-80% age predicted maximum heart rate reserve METs - Progression: 0.5-1.0 MET, RPE 11-14 WEEK: 7.3 Target Heart Rate:: 119-127 Max HR 142 - Hypertension Resting Blood Pressure:: 114/76 Peak Exercise Blood Pressure:: 150/82 - Intervention Home Exercise/Activity Goal:: Sitting Time <3 hrs/day - Education Goals:: Warm-up, RPE PAL Scale, S/S, Safe Exercise, Self-Monitoring - Exercise Program Goals Exercise Program Goals: Aerobic Activity >30 min, B/P <130/80 Nutrition - 60-Day Assessment - Program Goals Nutrition Program Goals: LDL <70. Total Cholesterol <200. HDL >45. Triglycerides <150. HgbA1C <7%. BMI <25 - Visit Date of Eval: 06/14/18 - Stages of Change Stages of Change:: Action - Diabetes Diabetes:: No - Weight Management Weight:: 77.337 kg - Intervention Referral to dietitian:: No Referral to Diabetic Clinic:: No Will attend diet classes:: Yes - Education Attended class for:: Signs & symptoms of hypoglycemia, Signs & symptoms of hyperglycemia, Relate diabetes to coronary artery disease, Healthy eating Tobacco - 60-Day Assessment - Program Goals Tobacco Program Goals: Complete smoking cessation. Attend education classes. Improve Knowledge Test score - Stage of Change Stages of Change:: Action - Learning Barriers Learning Barriers: Participates in education - Family Support Do you have family support?: Yes - Tobacco Use Tobacco Use: Non-smoker Do you use smokeless tobacco?: No - Intervention Smoking Cessation Referral:: No Individual Education/Counseling:: No Education Schedule Given:: Yes - Education Attended class for:: Tobacco triggers, Coronary artery disease, Risk factors, Sexuality, Medical compliance, Cardiac A&P, Angina signs & symptoms Psychosocial - 60-Day Assess - Target Goals Target Goals: Assess presence or absence of depression. Using a valid screening tool, maximizes coping skills. Positive support system - Stages of Change Stages of Change:: Action - Psychosocial Test Tool Used:: HANDS Depression Questionnaire - Intervention PS - Interventions: Yes Attend Stress Management Classes, Yes Uses Stress Management Skills, No Referral to Mental Health, No Referral to [facility] Case Management, No Referral to Physician - Education Attended classes for:: Coping techniques, Signs & symptoms of depression, Stress management, Relaxation techniques - Assistive Devices Assistive Devices:: None Fall Risk Assessed:: Yes Patient Health Questionnaire 60-Day Re-eval Assessment 1. Little interest or pleasure in doing things: Not at all 2. Feeling down, depressed, or hopeless: Several days 3. Trouble falling or staying asleep, or sleeping too much: Several days 4. Feeling tired or having little energy: Not at all 5. Poor appetite or overeating: Not at all 6. Feeling bad about yourself -- or that you are a failure or have let yourself or your family down: Several days 7. Trouble concentrating on things, such as reading the newspaper or watching television: Not at all 8. Moving or speaking so slowly that other people could have noticed. Or the opposite - being so fidgety or restless that you have been moving around a lot more than usual: Not at all 9. Thoughts that you would be better off , or of hurting yourself in some way: Not at all How difficult have these problems made it for you to do your work, take care of things at home, or get along with other people?: Not difficult at all Total Score: 3 Self-Efficacy 60-Day Re-eval Assessment We would like to know how confident you are in doing certain activities. Please select your confidence level for:: Select your confidence level for the following using the scale 1-10 where 1 is not at all confident and 10 is totally confident. Your score is the average of all 6 responses. Fatigue: How confident are you that you can keep the fatigue caused by your disease from interfering with the things you want to do? Select Number: 6 Physical Discomfort or Pain: How confident are you that you can keep the physical discomfort or pain of your disease from interfering with the things you want to do? Select Number: 5 Emotional Distress: How confident are you that you can keep the emotional distress caused by your disease from interfering with the things you want to do? Select Number: 7 Other Symptoms or Health Problems: How confident are you that you can keep other symptoms or health problems from interfering with the things you want to do? Select Number: 8 Different Tasks and Activities: How confident are you that you can do the different tasks and activities needed to manage your health condition so as to reduce your need to see a doctor? Select Number: 8 Medication: How confident are you that you can do things other than just taking medication to reduce how much your illness affects your everyday life? Select Number: 10 Total Score:: 7
== END 2018-06-30 23:59 ==
LOC: CR 14:15
PROVIDERS: Family Provider Family Medicine; PCP Family Medicine; Referring Provider Internal Medicine Cardiovascular Disease; Visit Provider Internal Medicine Cardiovascular Disease
DX: I25.10 Atherosclerotic heart disease of native coronary artery without angina pectoris (principal); Z95.5 Presence of coronary angioplasty implant and graft
CPT/HCPCS: 93798

== ENCOUNTER 2018-07-05 15:02 | Emergency (ER) | payer OTHER, SELFPAY ==
[2018-07-05 15:02] VITALS: BP 150/86; PULSE 58; RESP 18; TEMP 36.9; O2SAT 99; BMI 26.2; BMI 26.7
--- NOTE | 2018-07-05 16:00 | EKG12_ITS ---
Test Reason : SOB Blood Pressure : / mmHG Vent. Rate : 057 BPM Atrial Rate : 057 BPM P-R Int : 178 ms QRS Dur : 076 ms QT Int : 472 ms P-R-T Axes : 073 -22 039 degrees QTc Int : 459 ms Sinus bradycardia with sinus arrhythmia Otherwise normal ECG Confirmed by LESLEY LEES, FERNANDO ([id number]), order editor OTF HERNANDEZ ([id number]) on 07/08/2018 11:15:49 AM Referred By: Otoniel Campbell Confirmed By:FERNANDO SUTTON MD
--- NOTE | 2018-07-05 16:00 | RAD_ITS ---
STUDY: X-RAY CHEST REASON FOR EXAM: Female, 63 years old. Chest pain. TECHNIQUE: PA and lateral views of the chest. COMPARISON: April 09, 2018. FINDINGS: Telemetry wires overlie the chest. The lungs are clear and hyperexpanded. There is no demonstrated pleural abnormality. Normal size heart. Normal mediastinum and mundo. Normal visualized pulmonary arteries. Normal visualized aortic arch and descending thoracic aorta. There are diffuse degenerative changes of the visualized thoracic spine. There is degenerative osteoarthritis of the bilateral shoulders. There is no demonstrated abnormality of the visualized soft tissue structures of the upper abdomen. RAD/Chest PA and Lateral IMPRESSION: No acute cardiopulmonary disease or interval change. Electronically Signed: Bjorn Salvador DO at 16:43 EDT Tel [phone], Service support ,
--- NOTE | 2018-07-05 16:06 | ED.DCSUM_ITS ---
- ER Visit Summary Date of Service: 07/05/18 Chief Complaint: Cough, shortness of breath History of Present Illness: The patient is a 63 F presents to the emergency department with cough and shortness of breath. The patient's medical history significant for angioplasty with stenting of her LAD in April. At that point, she was having exertional angina. She underwent stenting. She is been doing cardiac rehab. States she has been doing well with her rehab. However, over the past 3 weeks, she had cough with some shortness of breath. She states that she initially went to urgent care about 10 days ago. She was diagnosed with URI. She was in rehab today and was coughing and having some tightness mostly in her back. She states this feels different than her chest pain that she required stenting for. She is been compliant with all of her medications. She does have a remote history of smoking. Physical Examination: Vital signs reviewed General: Well-nourished, well-developed Head: Normocephalic, atraumatic Eyes: Pupils equal and reactive, extraocular muscles intact Neck, supple, no lymphadenopathy Heart: Regular rate and rhythm Respiratory: No distress, clear bilaterally Abdomen: Soft, nontender, nondistended, no peritoneal signs Back: Nontender Extremities: Nontender, no edema, no cords Skin: Normal color no rash Neuro: Alert and oriented, no focal or lateralizing deficits Test Results: [] Emergency Department Course and Treatment: [The patient presents with cough and shortness of breath. EKG was obtained. There is no evidence of acute ischemic change. She had the symptoms for greater than 3 weeks. Her chest x-ray shows no enlarged cardiac silhouette, evidence of volume overload, or focal pneumonia. Cardiac enzymes are normal. I do not suspect this to be an anginal equivalent. Her symptoms do seem entirely infectious. Patient was given fluids and a nebulized breathing treatment. She did have improvement of aeration. The patient's symptoms have improved. I do suspect this is entirely infectious. I have no suspicion for cardiac equivalent. I am going to treat the patient with steroids and antibiotics. She is comfortable with this plan of care. She will be discharged home. Treatment Plan: [] Disposition: Discharge Impression: 1. Bronchitis with bronchospasm This note was generated with [employer] software. It may contain incorrect words, spelling, and punctuation that were not noted in review of the chart prior to signing ED Disposition - Plan for ED Patient: Disposition: Home or Assisted Living Instructions: ED Upper Resp Infec Abx Tx Prescriptions: RX: Albuterol Inhaler [Ventolin Hfa] 2 puff INHALATION Q4H PRN PRN #1 inhaler PRN Reason: Wheezing RX: Prednisone [Deltasone] 40 mg PO DAILY #10 tab RX: Doxycycline 100 mg PO BID #20 cap Referrals: Antonio Santacruz MD [STAFF PHYSICIAN] -
[2018-07-05 16:09] VITALS: PULSE 63; RESP 18
[2018-07-05] MEDS: Ipratropium/Albuterol Sulfate 3 ML AMPUL.NEB INHALATION (16:09)
[2018-07-05 16:45] LABS: ALB/GLOB Ratio 1.2 RATIO (0.9-2.4); AST(SGOT) 17 U/L (15-37); Alanine Aminotransfer ALT/SGPT 26 U/L (13-56); Albumin, Serum 4.1 g/dL (3.2-5.0); Alkaline Phosphatase 84 U/L (45-117); Anion Gap 9 (5-15); BUN 15 mg/dL (7-18); BUN/Creat Ratio 14.7 RATIO (10-20); Calcium,Total 9.3 mg/dL (8.5-10.1); Chloride 108 mmol/L (98-107); Creatinine, Serum 1.02 mg/dL (0.55-1.02); EST Glomerular Filtration Rate 59 mL/min (>60); Est Glom Filt Rate - Afr Amer 71 mL/min (>60); Estimated Creatinine Clearance 56.32 ml/min; Globulin 3.5 g/dL (2.2-4.2); Glucose 89 mg/dL (74-106); Potassium 4.3 mmol/L (3.5-5.1); Protein, Total 7.6 g/dL (6.4-8.2); Sodium Level 140 mmol/L (136-145)
[2018-07-05 17:03] LABS: Absolute Lymphocyte Count 2.23 X10^3/ul (0.83-4.51); Absolute Neutrophil Count 2.8 X10^3/uL (2.0-7.7); Basophil# 0.05 X10^3/uL; Basophil% 0.9 % (0-1); Eosinophil# 0.13 X10^3/uL; Eosinophils% 2.2 % (0-5); Hematocrit 41.1 % (37-47); Hemoglobin 13.5 g/dl (12.0-15.0); Lymphocyte # 2.23 X10^3/ul (4.0); Lymphocyte % 38.5 % (19-41); Mean Corp Hgb Conc 32.8 g/gl (32-36); Mean Corpuscular Hgb 30.9 pg (27.0-32.0); Mean Corpuscular Volume 94.1 fL (81-99); Mean Platelet Vol. 9.9 fl (6.2-12.0); Monocyte% 10.4 % (0-10); Neutrophil # 2.76 X10^3/uL (2.7-7.7); Neutrophil % 47.7 % (47-70); Platelet Count 267 K/mm3 (150-450); RBC Distribution Width SD 44.4 fl (35.1-43.9); Red Blood Count 4.37 M/mm3 (4.2-5.4); White Blood Count 5.8 K/mm3 (4.4-11.0)
[2018-07-05 17:04] VITALS: PULSE 68; RESP 10; O2SAT 100
[2018-07-05 17:04] LABS: Differential Indicated SCAN CRITERIA MET; POSITIVE COUNT YES; POSITIVE DIFFERENTIAL NO; POSITIVE MORPHOLOGY YES
[2018-07-05 17:27] LABS: Platelet Estimate ADEQUATE (ADEQ); Red Cell Morphology NORM C+C NORMAL (NORM C&C)
[2018-07-05 17:28] LABS: Atypical Lymphocyte RARE %
== END 2018-07-05 17:37 | disposition home or self-care (01) ==
LOC: ED 16:31
PROVIDERS: Emergency Provider Emergency Medicine; Family Provider Family Medicine; PCP Family Medicine
DX: J20.9 Acute bronchitis, unspecified (principal); I25.10 Atherosclerotic heart disease of native coronary artery without angina pectoris; Z95.1 Presence of aortocoronary bypass graft; I10 Essential (primary) hypertension; E78.00 Pure hypercholesterolemia, unspecified; Z79.899 Other long term (current) drug therapy; Z87.891 Personal history of nicotine dependence
CPT/HCPCS: 71046; 80053; 84484; 85025; 93005; 94640; 96360; 99285; J7030; J7040; A4216

== ENCOUNTER 2018-07-29 14:15 | Outpatient (RCR) | payer OTHER, SELFPAY ==
[2018-07-01 01:07] VITALS: BP 114/76; BP 150/82; BMI 27.6
--- NOTE | 2018-07-15 07:28 | PCM.CR.ITP ---
General Information - General Information Admitting Diagnosis: PCI W/ Stent - Education/Goals Cardiac Rehabilitation Goals: 1. Maintain the individual as the primary focus of care. 2. To improve the patient's quality of life. 3. Identification of cardiac risk factors and provide cardiac risk factor management. 4. Enhance the psychosocial status of the patient. 5. Reconditioning enough to allow the patient to resume customary activities. 6. Control symptoms of cardiac disease Scale for measuring improvement of personal goals: Enter appropriate number in Comments. 2 = Unchanged. 3 = Slightly Better. 4 = Moderate Improvement. 5 = Met my Goal Exercise - 90-Day Assessment - Visit Date of Eval: 07/15/18 Session #:: 22 - Stages of Change Stages of Change:: Action - Physician Prescribed Exercise Modalities: Treadmill, Airdyne, NuStep Frequency (days/week): 3 Duration (Minutes):: 30-45 Intensity: 60-80% age predicted maximum heart rate reserve METs - Progression: 0.5-1.0 MET, RPE 11-14 WEEK: 7.9 Target Heart Rate:: 119-127 Max HR 141 - Hypertension Resting Blood Pressure:: 122/64 Peak Exercise Blood Pressure:: 140/80 - Intervention Home Exercise/Activity Goal:: Sitting Time <3 hrs/day - Education Goals:: Warm-up, RPE PAL Scale, S/S, Safe Exercise, Self-Monitoring - Exercise Program Goals Exercise Program Goals: Aerobic Activity >30 min, B/P <130/80 Nutrition - 90-Day Assessment - Program Goals Nutrition Program Goals: LDL <70. Total Cholesterol <200. HDL >45. Triglycerides <150. HgbA1C <7%. BMI <25 - Visit Date of Eval: 07/15/18 - Stages of Change Stages of Change:: Action - Diabetes Diabetes:: No - Weight Management Weight:: 167.5 kg - Intervention Referral to dietitian:: No Referral to Diabetic Clinic:: No Will attend diet classes:: Yes - Education Attended class for:: Signs & symptoms of hypoglycemia, Signs & symptoms of hyperglycemia, Relate diabetes to coronary artery disease, Healthy eating Tobacco - 90-Day Assessment - Program Goals Tobacco Program Goals: Complete smoking cessation. Attend education classes. Improve Knowledge Test score - Stage of Change Stages of Change:: Action - Learning Barriers Learning Barriers: Participates in education - Family Support Do you have family support?: Yes - Tobacco Use Tobacco Use: Non-smoker - Intervention Smoking Cessation Referral:: No Individual Education/Counseling:: No Education Schedule Given:: Yes - Education Attended class for:: Tobacco triggers, Coronary artery disease, Risk factors, Sexuality, Medical compliance, Cardiac A&P, Angina signs & symptoms Psychosocial - Initial Assess - Target Goals Target Goals: Assess presence or absence of depression. Using a valid screening tool, maximizes coping skills. Positive support system - Psychosocial Test Tool Used:: HANDS Depression Questionnaire - Assistive Devices Fall Risk Assessed:: Yes Psychosocial - 90-Day Assess - Target Goals Target Goals: Assess presence or absence of depression. Using a valid screening tool, maximizes coping skills. Positive support system - Stages of Change Stages of Change:: Action - Psychosocial Test Tool Used:: HANDS Depression Questionnaire - Intervention PS - Interventions: Yes Attend Stress Management Classes, Yes Uses Stress Management Skills, No Referral to Mental Health, No Referral to [facility] Case Management, No Referral to Physician - Education Attended classes for:: Coping techniques, Signs & symptoms of depression, Stress management, Relaxation techniques - Assistive Devices Assistive Devices:: None Fall Risk Assessed:: Yes Patient Health Questionnaire 90-Day Re-eval Assessment 1. Little interest or pleasure in doing things: Not at all 2. Feeling down, depressed, or hopeless: Not at all 3. Trouble falling or staying asleep, or sleeping too much: Several days 4. Feeling tired or having little energy: Several days 5. Poor appetite or overeating: Not at all 6. Feeling bad about yourself -- or that you are a failure or have let yourself or your family down: Not at all 7. Trouble concentrating on things, such as reading the newspaper or watching television: Several days 8. Moving or speaking so slowly that other people could have noticed. Or the opposite - being so fidgety or restless that you have been moving around a lot more than usual: Not at all 9. Thoughts that you would be better off , or of hurting yourself in some way: Not at all How difficult have these problems made it for you to do your work, take care of things at home, or get along with other people?: Not difficult at all Total Score: 3 Self-Efficacy 90-Day Re-eval Assessment We would like to know how confident you are in doing certain activities. Please select your confidence level for:: Select your confidence level for the following using the scale 1-10 where 1 is not at all confident and 10 is totally confident. Your score is the average of all 6 responses. Fatigue: How confident are you that you can keep the fatigue caused by your disease from interfering with the things you want to do? Select Number: 6 Physical Discomfort or Pain: How confident are you that you can keep the physical discomfort or pain of your disease from interfering with the things you want to do? Select Number: 5 Emotional Distress: How confident are you that you can keep the emotional distress caused by your disease from interfering with the things you want to do? Select Number: 7 Other Symptoms or Health Problems: How confident are you that you can keep other symptoms or health problems from interfering with the things you want to do? Select Number: 8 Different Tasks and Activities: How confident are you that you can do the different tasks and activities needed to manage your health condition so as to reduce your need to see a doctor? Select Number: 8 Medication: How confident are you that you can do things other than just taking medication to reduce how much your illness affects your everyday life? Select Number: 10 Total Score:: 7
[2018-07-15 07:37] VITALS: BP 122/64; BP 140/80
== END 2018-07-30 23:59 ==
LOC: CR 14:15
PROVIDERS: Family Provider Family Medicine; PCP Family Medicine; Referring Provider Internal Medicine Cardiovascular Disease; Visit Provider Internal Medicine Cardiovascular Disease
DX: I25.10 Atherosclerotic heart disease of native coronary artery without angina pectoris (principal); Z95.5 Presence of coronary angioplasty implant and graft
CPT/HCPCS: 93798

== ENCOUNTER 2018-08-02 14:15 | Outpatient (RCR) | payer OTHER, SELFPAY ==
[2018-07-31 01:13] VITALS: BP 122/64; BP 140/80; BMI 26.7
== END 2018-08-30 23:59 ==
LOC: CR 14:15
PROVIDERS: Family Provider Family Medicine; PCP Family Medicine; Referring Provider Internal Medicine Cardiovascular Disease; Visit Provider Internal Medicine Cardiovascular Disease
DX: I25.10 Atherosclerotic heart disease of native coronary artery without angina pectoris (principal); Z95.5 Presence of coronary angioplasty implant and graft
CPT/HCPCS: 93798

== ENCOUNTER → 2018-12-26 11:57 | Outpatient (CLI) | payer OTHER, SELFPAY ==
[2018-12-26 10:46] VITALS: BMI 25.0
[2018-12-26 13:51] LABS: Absolute Lymphocyte Count 1.68 X10^3/uL (0.83-4.51); Absolute Neutrophil Count 1.4 X10^3/uL (2.0-7.7); Basophil# 0.05 X10^3/uL; Basophil% 1.4 % (0-1); Eosinophil# 0.16 X10^3/uL; Eosinophils% 4.4 % (0-5); Hemoglobin 13.9 g/dL (12.0-15.0); Lymphocyte # 1.68 X10^3/ul (4.0); Lymphocyte % 45.8 % (19-41); Mean Corp Hgb Conc 32.3 g/dL (32-36); Mean Corpuscular Hgb 30.8 pg (27.0-32.0); Mean Corpuscular Volume 95.1 fL (81-99); Mean Platelet Vol. 9.6 fl (6.2-12.0); Monocyte# 0.37 X10^3/uL; Monocyte% 10.1 % (0-10); NRBC Flagged by Analyzer 0 % (0-5); Platelet Count 285 K/mm3 (150-450); RBC Distribution Width CV 12.5 % (11.6-14.6); RBC Distribution Width SD 43.5 fl (35.1-43.9); Red Blood Count 4.52 M/mm3 (4.2-5.4); White Blood Count 3.7 K/mm3 (4.4-11.0)
[2018-12-26 14:21] LABS: Anion Gap 9 (5-15); BUN 21 mg/dL (7-18); BUN/Creat Ratio 22.2 RATIO (10-20); Calcium,Total 9.3 mg/dL (8.5-10.1); Chloride 108 mmol/L (98-107); Creatinine, Serum 0.95 mg/dL (0.55-1.02); EST Glomerular Filtration Rate 64 mL/min (>60); Est Glom Filt Rate - Afr Amer 77 mL/min (>60); Glucose 89 mg/dL (74-106); Magnesium 2.5 mg/dL (1.6-2.6); Potassium 4.6 mmol/L (3.5-5.1); Sodium Level 143 mmol/L (136-145); Thyroid Stim Hormone (TSH) 2.32 uIU/mL (0.358-3.74)
== END ==
PROVIDERS: Family Provider Family Medicine; PCP Family Medicine; Referring Provider Physician Assistant Medical; Visit Provider Physician Assistant Medical
DX: R55 Syncope and collapse (principal); I25.10 Atherosclerotic heart disease of native coronary artery without angina pectoris
CPT/HCPCS: 36415; 80048; 83735; 84443; 85025

== ENCOUNTER → 2019-01-03 12:48 | Outpatient (CLI) | payer OTHER, SELFPAY ==
[2018-12-26 10:46] VITALS: BMI 25.0
--- NOTE | 2019-01-03 12:50 | CDU_ITS ---
Reason For Study: Syncope Rt. Velocities/BP Lt. Velocities/BP Prox CCA 98.2/14.7 cm/sec. Prox CCA 88.2/19 cm/sec. Mid CCA 87.8/21.3 cm/sec. Mid CCA 81.6/20.1 cm/sec. Dist CCA 87.8/23.9 cm/sec. Dist CCA 84.9/21.2 cm/sec. Prox ICA 89.1/22.6 cm/sec. Prox ICA 64/17.9 cm/sec. Mid ICA 63/27.8 cm/sec. Mid ICA 66.2/24.5 cm/sec. Dist ICA 68.6/28.9 cm/sec. Dist ICA 66.2/25.6 cm/sec. Rt. ICA/CCA = 1.0. Lt. ICA/CCA = 0.8. Prox ECA 90.4/16 cm/sec. Prox ECA 61.9/12.4 cm/sec. Rt. Vert. 35.2/9.7 cm/sec. Lt. Vert. 40.4/13.3 cm/sec. Right Extracranial There is intimal thickening but no significant atherosclerotic plaque noted in the right common carotid artery. There is heterogeneous, irregular atherosclerotic plaque noted in the right internal carotid artery. There is intimal thickening but no significant atherosclerotic plaque noted in the right external carotid artery. Antegrade flow is noted in the right vertebral artery. Left Extracranial There is intimal thickening but no significant atherosclerotic plaque noted in the left common carotid artery. There is intimal thickening but no significant atherosclerotic plaque noted in the left internal carotid artery. There is intimal thickening but no significant atherosclerotic plaque noted in the left external carotid artery. Antegrade flow is noted in the left vertebral artery. Procedure Carotid Duplex [id number]. Exam performed in department. Interpretation Summary Mild plague at the proximal right internal carotid <50% stenosis right internal carotid <50% stenosis right external carotid No significant plague left internal carotid with <50% stenosis <50% stenosis left external carotid Patent, antegrade vertebrals bilaterally with <50% stenosis Ordering Physician: Marlyn Lennon Referring Physician: Jessica Steh Performed By: Nuha Mulligan RVT
== END ==
PROVIDERS: Family Provider Family Medicine; PCP Family Medicine; Referring Provider Physician Assistant Medical; Visit Provider Physician Assistant Medical
DX: I25.10 Atherosclerotic heart disease of native coronary artery without angina pectoris (principal); R55 Syncope and collapse
CPT/HCPCS: 93880

== ENCOUNTER → 2019-02-14 17:36 | Outpatient (CLI) | payer OTHER, SELFPAY ==
[2019-01-30 13:22] VITALS: BMI 24.9
--- NOTE | 2019-02-14 18:15 | MRI_ITS ---
STUDY: MRI LUMBAR SPINE WITHOUT CONTRAST REASON FOR EXAM: Female, 63 years old. Back pain and left leg pain TECHNIQUE: Standardized fat and water weighted pulse sequences were obtained in the sagittal and axial planes. COMPARISON: None FINDINGS: T12-L1: Normal endplates. Normal disc height, hydration and morphology. Normal bilateral facet joints. Normal central canal and bilateral lateral recesses. Normal bilateral intervertebral neural foramina. Normal lumbar lordosis. There is no substantial scoliosis. Normal conus medullaris that terminates at T12-L1 L1-2: Normal endplates. Normal disc height, hydration and morphology. Normal bilateral facet joints. Normal central canal and bilateral lateral recesses. Normal bilateral intervertebral neural foramina. L2-3: Normal endplates. Normal disc height, desiccation and mild annular bulge.. Normal bilateral facet joints. Normal central canal and bilateral lateral recesses. Mild bilateral neural foraminal encroachment.. L3-4: Normal endplates. Normal disc height, hydration and tiny left foraminal disc protrusion. Mild facet arthropathy.. Normal central canal and bilateral lateral recesses. Minor left neural foraminal encroachment. L4-5: Normal endplates. Normal disc height, hydration and minimal annular bulge.. Facet arthropathy slightly more pronounced on the left. Normal central canal and bilateral lateral recesses. Mild bilateral neural foraminal encroachment. L5-S1: Normal endplates. Normal disc height, desiccation and mild annular bulge with small right paracentral disc protrusion displacing the descending S1 nerve roots more pronounced on the right. Bilateral facet arthropathy.. Old narrowing the central canal. Normal bilateral recesses. Mild to moderate bilateral neuroforaminal encroachment.. Normal visualized sacral ala. Small left renal cyst is observed Normal visualized paraspinous soft tissue structures. MRI/Spine Lumbar (Routine) IMPRESSION: No acute fracture or other significant bony pathology. Multilevel spinal stenosis secondary to disc disease and bony hypertrophy most severe at L5-S1 greater on the right. Findings as above Electronically Signed: Andrew Greene MD at 21:51 EST , Service support ,
== END ==
PROVIDERS: Family Provider Family Medicine; PCP Family Medicine; Referring Provider Family Medicine; Visit Provider Family Medicine
DX: M54.16 Radiculopathy, lumbar region (principal)
CPT/HCPCS: 72148

== ENCOUNTER → 2019-08-26 16:02 | Outpatient (CLI) | payer OTHER, SELFPAY ==
[2019-08-06 14:43] VITALS: BMI 26.4
--- NOTE | 2019-08-26 16:08 | CT_ITS ---
STUDY: CT LEFT FOOT REASON FOR EXAM: Fall one week ago, evaluate for nondisplaced fracture of the third metatarsal. TECHNIQUE: Thin section transaxial imaging of the foot was obtained, with sagittal and coronal reconstructed images. Individualized dose optimization techniques were used for this CT. COMPARISON: None. 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 There is a small posterior calcaneal enthesophyte (sagittal reconstruction 18). There is no demonstrated fracture of the tarsal bones of the midfoot or hindfoot. There is arthrosis with joint space narrowing of the talonavicular articulation (sagittal reconstructions 11-18). There is a nondisplaced fracture of the proximal metaphysis of the second metatarsal (sagittal reconstructions 13-15). There is a small dorsal osteophyte of the first metatarsal head without joint space narrowing of the metatarsophalangeal joint of the great toe. Normal tibial and fibular sesamoid bones. Normal interphalangeal joint of the great toe. Normal phalanges of the great toe. Normal second through fifth metatarsophalangeal joints. Normal interphalangeal joints and phalanges of the lesser toes. The soft tissue structures are unremarkable. CT/Extremity Lower without Contra IMPRESSION: Nondisplaced fracture of the proximal second metatarsal. 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 No demonstrated third metatarsal fracture. Electronically Signed: Bahamn Mg MD at 12:12 EDT Tel , Service support ,
== END ==
PROVIDERS: PCP Family Medicine; Referring Provider Podiatrist Foot & Ankle Surgery; Visit Provider Podiatrist Foot & Ankle Surgery
DX: S92.335A Nondisplaced fracture of third metatarsal bone, left foot, initial encounter for closed fracture (principal)
CPT/HCPCS: 73700

== ENCOUNTER → 2019-10-21 09:35 | Outpatient (CLI) | payer OTHER, SELFPAY ==
[2019-08-06 14:43] VITALS: BMI 26.4
[2019-10-21 10:38] LABS: AST(SGOT) 14 U/L (15-37); Alanine Aminotransfer ALT/SGPT 23 U/L (13-56); Albumin, Serum 4.2 g/dL (3.2-5.0); Alkaline Phosphatase 91 U/L (45-117); Bilirubin, Direct 0.14 mg/dL (0.00-0.30); Cholesterol 177 mg/dL (200); Globulin 3.8 g/dL (2.2-4.2); High Density Lipoprotein 69 mg/dL; Triglycerides 180 mg/dL; Very Low Density Lipoprotein 36 mg/dL (5-40)
== END ==
PROVIDERS: PCP Family Medicine; Referring Provider Physician Assistant Medical; Visit Provider Physician Assistant Medical
DX: I25.10 Atherosclerotic heart disease of native coronary artery without angina pectoris (principal)
CPT/HCPCS: 36415; 80061; 80076

== ENCOUNTER → 2020-09-02 15:12 | Outpatient (CLI) | payer OTHER, SELFPAY ==
[2020-05-05 16:16] VITALS: BMI 28.0
== END ==
PROVIDERS: PCP Family Medicine; Visit Provider Family Medicine
DX: Z20.828 Contact with and (suspected) exposure to other viral communicable diseases (principal)
CPT/HCPCS: 87635; U0005; U0003

== ENCOUNTER → 2020-11-11 08:31 | Outpatient (CLI) | payer OTHER, SELFPAY ==
[2020-05-05 16:16] VITALS: BMI 28.0
[2020-11-11 10:21] LABS: AST(SGOT) 19 U/L (15-37); Alanine Aminotransfer ALT/SGPT 30 U/L (13-56); Alkaline Phosphatase 73 U/L (45-117); Bilirubin, Direct 0.17 mg/dL (0.00-0.30); Cholesterol 185 mg/dL (200); Globulin 3.4 g/dL (2.2-4.2); High Density Lipoprotein 70 mg/dL; Protein, Total 7.4 g/dL (6.4-8.2); Triglycerides 153 mg/dL; Very Low Density Lipoprotein 31 mg/dL (5-40)
== END ==
PROVIDERS: PCP Family Medicine; Visit Provider Internal Medicine Cardiovascular Disease
DX: E78.00 Pure hypercholesterolemia, unspecified (principal)
CPT/HCPCS: 36415; 80061; 80076

== ENCOUNTER 2021-04-14 15:37 | Outpatient (CLI) | payer BC, SELFPAY ==
--- NOTE | 2021-04-14 15:41 | BI_ITS ---
MAMMOGRAPHY - BILATERAL SCREENING REASON FOR EXAM: Female, 66 years old. Routine annual screening examination. PERTINENT HISTORY: Non-contributory. Remote left needle biopsy. TECHNIQUE: Digital bilateral breast sarbjit (3D mammographic acquisition) in the CC and MLO projections. 2-D mediolateral oblique (MLO) and craniocaudad (CC) views of both breasts were obtained. CAD: Full Field Digital Mammography with Computer Added Detection was performed. COMPARISON: Comparison is made with prior study dated 11/06/2016 and 09/29/2014. FINDINGS: Breast Composition: The breasts are heterogeneously dense, which may obscure small masses. There are no dominant masses or suspicious calcifications. No other significant abnormalities are identified. There has been no significant change since the prior study. BI/SCRN MAMM (CAD)W/SARBJIT BILAT IMPRESSION: Stable bilateral screening mammogram. Yearly follow-up mammogram recommended. (A) ASSESSMENT CATEGORY: BIRADS Category 1: Negative. A letter regarding these results will be sent to the patient by the facility within 30 days. Approximately 10% of breast cancers are not detected by mammography. A normal mammogram should not delay biopsy of a clinically suspicious abnormality. [id number] Electronically Signed: Kenny Loyola MD at 8:05 EST , Service support ,
--- NOTE | 2021-04-14 15:43 | BD_ITS ---
STUDY: DUAL ENERGY X-RAY ABSORPTIOMETRY / DXA REASON FOR EXAM: Female, 66 years old. Z13.820 TECHNIQUE: Bone Mineral Density (BMD) measurements of lumbar spine and bilateral hips were obtained. COMPARISON: Comparison is made with prior study dated 06/13/2018. FINDINGS: Lumbar Spine (L1-L4): g/cm2 (0.866) / T-score (-1.6) / Z-score (0.0) Findings are suggestive of osteopenia with a moderate fracture risk. Left Femur Total: g/cm2 (0.655) / T-score (-2.4) / Z-score (-1.2) Left Femoral Neck: g/cm2 (0.518) / T-score (-3.0) / Z-score (-1.5) Right Femur Total: g/cm2 (0.682) / T-score (-2.1) / Z-score (-1.0) Right Femoral Neck: g/cm2 (0.606) / T-score (-2.2) / Z-score (-0.7) The T-Scores on the most recent prior examination were: Lumbar Spine (L1-L4): There has been improvement of bone density since the previous examination. Left Femur Total: which represents an improvement of 3.4%. Right Femur Total: which represents an improvement of 8.1%. BD/Dexa Bone Density Study IMPRESSION: The patient is considered osteoporotic as outlined below according to World Rafael Organization (WHO) criteria with a high fracture risk. There has been worsening of bone density since the previous examination. Reference Information: The T-score is the number of standard deviations above or below the standard which is normal for young adults at their peak bone mineral density. The World Health Organization (WHO) interprets the T-scores as follows: Above -1 Normal bone density Between -1 and -2.5 Osteopenia Equal to / or below -2.5 Osteoporosis As a practical clinical guideline, osteopenia may be graded as follows: Mild -1 through -1.5 Moderate -1.6 through -2.0 Severe -2.1 through -2.4 The Z-score is the number of standard deviations above or below age-matched controls. A Z-score of less than -1.5 would be considered abnormal. References: 1. NIH Osteoporosis and Related Bone Diseases www osteo.org 2. International Society for Clinical Densitometry www iscd.org 3. National Osteoporosis Foundation www nof.org Electronically Signed: Kenny Loyola MD at 9:40 EST , Service support ,
== END 2021-04-14 23:59 | disposition short-term general hospital (02) ==
LOC: OPBI 15:38
PROVIDERS: PCP Family Medicine; Referring Provider Student in an Organized Health Care Education/Training Program; Visit Provider Student in an Organized Health Care Education/Training Program
DX: Z12.31 Encounter for screening mammogram for malignant neoplasm of breast (principal); Z13.820 Encounter for screening for osteoporosis
CPT/HCPCS: 77063; 77067; 77080

== ENCOUNTER 2021-04-28 16:47 | Outpatient (CLI) | payer BC, SELFPAY | END 2021-04-28 23:59 | disposition short-term general hospital (02) | LOC: LABSPEC 16:48 | PROVIDERS: PCP Family Medicine; Visit Provider Family Medicine | DX: U07.1 COVID-19 (principal) | CPT/HCPCS: 87635; U0003; U0005 ==

== ENCOUNTER 2021-06-06 10:40 | Outpatient (CLI) | payer BC, SELFPAY ==
[2021-06-06 12:17] LABS: AST(SGOT) 15 U/L (15-37); Alanine Aminotransfer ALT/SGPT 23 U/L (13-56); Albumin, Serum 4.1 g/dL (3.2-5.0); Alkaline Phosphatase 83 U/L (45-117); Bilirubin, Direct 0.12 mg/dL (0.00-0.30); Cholesterol 190 mg/dL (200); Globulin 3.9 g/dL (2.2-4.2); High Density Lipoprotein 77 mg/dL; Triglycerides 144 mg/dL; Very Low Density Lipoprotein 29 mg/dL (5-40)
== END 2021-06-06 23:59 | disposition home or self-care (01) ==
LOC: LAB 10:46
PROVIDERS: PCP Family Medicine; Referring Provider Internal Medicine Cardiovascular Disease; Visit Provider Internal Medicine Cardiovascular Disease
DX: E78.00 Pure hypercholesterolemia, unspecified (principal); I25.10 Atherosclerotic heart disease of native coronary artery without angina pectoris; Z95.5 Presence of coronary angioplasty implant and graft
CPT/HCPCS: 36415; 80061; 80076

== ENCOUNTER 2021-07-14 13:46 | Outpatient (CLI) | payer BC, SELFPAY | END 2021-07-14 23:59 | disposition home or self-care (01) | PROVIDERS: PCP Family Medicine; Visit Provider Nurse Practitioner Gerontology | DX: G47.10 Hypersomnia, unspecified (principal) | CPT/HCPCS: 95806 ==

== ENCOUNTER → 2021-08-23 | Outpatient (CLI) | payer BC, SELFPAY ==
[2021-08-23 16:27] LABS: AST(SGOT) 14 U/L (15-37); Alanine Aminotransfer ALT/SGPT 21 U/L (13-56); Albumin, Serum 3.9 g/dL (3.2-5.0); Alkaline Phosphatase 74 U/L (45-117); Bilirubin, Direct 0.13 mg/dL (0.00-0.30); Globulin 3.6 g/dL (2.2-4.2); Protein, Total 7.5 g/dL (6.4-8.2)
== END | disposition home or self-care (01) ==
LOC: LAB 14:59
PROVIDERS: PCP Family Medicine; Referring Provider Podiatrist; Visit Provider Podiatrist
DX: B35.1 Tinea unguium (principal)
CPT/HCPCS: 36415; 80076

== ENCOUNTER → 2022-03-20 | Outpatient (CLI) | payer BC, SELFPAY ==
[2022-03-28 19:48] LABS: HPV APTIMA, High Risk Negative (Negative)
== END | disposition home or self-care (01) ==
LOC: LABSPEC 10:09
PROVIDERS: PCP Family Medicine; Visit Provider Student in an Organized Health Care Education/Training Program
DX: I10 Essential (primary) hypertension (principal)
CPT/HCPCS: 87624; 88175; G0145

== ENCOUNTER → 2022-05-22 | Outpatient (CLI) | payer MEDICARE, SELFPAY ==
[2022-05-22 12:38] LABS: AST(SGOT) 12 U/L (15-37); Alanine Aminotransfer ALT/SGPT 18 U/L (13-56); Albumin, Serum 4.2 g/dL (3.2-5.0); Alkaline Phosphatase 75 U/L (45-117); Bilirubin, Direct 0.11 mg/dL (0.00-0.30); Cholesterol 191 mg/dL (200); Globulin 3.6 g/dL (2.2-4.2); High Density Lipoprotein 63 mg/dL; Protein, Total 7.8 g/dL (6.4-8.2); Triglycerides 181 mg/dL; Very Low Density Lipoprotein 36 mg/dL (5-40)
== END | disposition home or self-care (01) ==
PROVIDERS: PCP Family Medicine; Referring Provider Nurse Practitioner Family; Visit Provider Nurse Practitioner Family
DX: E78.5 Hyperlipidemia, unspecified (principal); I25.10 Atherosclerotic heart disease of native coronary artery without angina pectoris
CPT/HCPCS: 36415; 80061; 80076

== ENCOUNTER → 2022-05-23 | Outpatient (CLI) | payer MEDICARE, SELFPAY ==
[2022-05-23 18:28] LABS: BUN 22 mg/dL (7-18); Creatinine, Serum 1.12 mg/dL (0.55-1.02); EST Glomerular Filtration Rate 52 mL/min (>60); Glucose 91 mg/dL (74-106)
[2022-05-23 18:29] LABS: Anion Gap 9 (5-15); BUN/Creat Ratio 19.6 RATIO (10-20); Calcium,Total 9.9 mg/dL (8.5-10.1); Chloride 105 mmol/L (98-107); Est Glom Filt Rate - Afr Amer 63 mL/min (>60); Potassium 3.9 mmol/L (3.5-5.1); Sodium Level 139 mmol/L (136-145); Thyroid Stim Hormone (TSH) 2.75 uIU/mL (0.358-3.74)
[2022-05-23 18:37] LABS: Hemoglobin A1c 5.8 % (3.8-5.6)
== END | disposition home or self-care (01) ==
LOC: BFHLAB 16:02
PROVIDERS: PCP Family Medicine; Visit Provider Family Medicine
DX: R53.83 Other fatigue (principal); M85.80 Other specified disorders of bone density and structure, unspecified site; I25.10 Atherosclerotic heart disease of native coronary artery without angina pectoris; E16.2 Hypoglycemia, unspecified
CPT/HCPCS: 36415; 80048; 83036; 84443; 87077; 87086; 87088; 87186

== ENCOUNTER 2022-06-29 13:30 | Outpatient (RCR) | payer MEDICARE, OTHER, SELFPAY | END 2022-06-30 23:59 | LOC: NS 13:30 | PROVIDERS: PCP Family Medicine; Referring Provider Family Medicine; Visit Provider Family Medicine | DX: Z71.3 Dietary counseling and surveillance (principal); R63.5 Abnormal weight gain; Z68.27 Body mass index [BMI] 27.0-27.9, adult; R73.09 Other abnormal glucose | CPT/HCPCS: 97802 ==

== ENCOUNTER 2022-07-13 13:28 | Outpatient (RCR) | payer SELFPAY | END 2022-07-30 23:59 | LOC: NS 13:28 | PROVIDERS: PCP Family Medicine; Referring Provider Family Medicine; Visit Provider Family Medicine | DX: Z71.3 Dietary counseling and surveillance (principal); R63.5 Abnormal weight gain; Z68.27 Body mass index [BMI] 27.0-27.9, adult; R73.09 Other abnormal glucose | CPT/HCPCS: 97803 ==

== ENCOUNTER → 2022-07-31 | Outpatient (CLI) | payer MEDICARE, OTHER, SELFPAY ==
--- NOTE | 2022-07-31 11:30 | STRESSREP_ITS ---
Stress Test Report Exercise myocardial perfusion stress test. 67-year-old lady with a history of chest pain Stress protocol: Resting EKG demonstrates normal sinus rhythm with a rate of 52 bpm and resting blood pressure is 134/82 mmHg. The patient exercised according to the regular Brad protocol for a total duration of 7 minutes and 30 seconds attaining a ma ximum heart rate of 125 bpm which was 80% of maximum predicted heart rate; the maximum workload was 10.1 metabolic equivalents. At rest there were no ST or T wave changes noted to suggest ischemia and at peak exercise upsloping ST changes only were noted which did not meet the criteria for ischemia. No clinical angina was noted the test was terminated due to the target heart rate being achieved/fatigue. The peak blood pressure was 148/90 mmHg. Rate-pressure product was 15,600. Myocardial perfusion protocol. 10.6 mCi of technetium 99m sestamibi was injected at rest. The patient exercised according to regular Brad protocol for total duration of 7 minutes and 30 seconds and at peak exercise 32.3 mCi of technetium 99m sestamibi was injected stress images were obtained stress and rest images were reconstructed in comparing the short axis vertical long and horizontal long axis. Gated images were also obtained. Perfusion SPECT analysis: Review of the stress images demonstrate normal uptake of tracer noted in all areas of the myocardium. The resting images similarly demonstrate normal uptake of tracer noted in all areas of the myocardium. No areas of reversibility are noted to suggest ischemia no previous infarct was noted. Gated SPECT analysis: The gated ejection fraction is 79%. Conclusion: Normal exercise myocardial perfusion stress test at a high workload Normal ejection fraction.
== END | disposition home or self-care (01) ==
LOC: CVS 06:53
PROVIDERS: PCP Family Medicine; Referring Provider Nurse Practitioner Family; Visit Provider Nurse Practitioner Family
DX: I25.10 Atherosclerotic heart disease of native coronary artery without angina pectoris (principal); E78.5 Hyperlipidemia, unspecified; Z95.5 Presence of coronary angioplasty implant and graft
CPT/HCPCS: 78452; 93017; A9500; A4216

== ENCOUNTER → 2022-12-18 | Outpatient (CLI) | payer MEDICARE, BC, SELFPAY ==
[2022-12-18 10:19] LABS: AST(SGOT) 17 U/L (15-37); Alanine Aminotransfer ALT/SGPT 26 U/L (13-56); Albumin, Serum 3.8 g/dL (3.2-5.0); Alkaline Phosphatase 70 U/L (45-117); Bilirubin, Direct 0.11 mg/dL (0.00-0.30); Cholesterol 169 mg/dL (200); Globulin 3.5 g/dL (2.2-4.2); High Density Lipoprotein 73 mg/dL; Protein, Total 7.3 g/dL (6.4-8.2); Triglycerides 132 mg/dL; Very Low Density Lipoprotein 26 mg/dL (5-40)
== END | disposition home or self-care (01) ==
LOC: LAB 09:02
PROVIDERS: PCP Family Medicine; Referring Provider Nurse Practitioner Family; Visit Provider Nurse Practitioner Family
DX: I25.10 Atherosclerotic heart disease of native coronary artery without angina pectoris (principal); E78.5 Hyperlipidemia, unspecified
CPT/HCPCS: 36415; 80061; 80076

== ENCOUNTER → 2023-04-11 | Outpatient (CLI) | payer BC, SELFPAY ==
--- NOTE | 2023-04-11 13:16 | BI_ITS ---
MAMMOGRAPHY - BILATERAL SCREENING REASON FOR EXAM: Female, 68 years old. Routine annual screening examination. PERTINENT HISTORY: Non-contributory. History of remote left medial breast biopsy. TECHNIQUE: Digital bilateral breast sarbjit (3D mammographic acquisition) in the CC and MLO projections. 2-D mediolateral oblique (MLO) and craniocaudad (CC) views of both breasts were obtained. CAD: Full Field Digital Mammography with Computer Added Detection was performed. COMPARISON: Comparison is made with prior study dated April 14, 2021 and November 06, 2016. FINDINGS: Breast Composition: The breasts are heterogeneously dense, which may obscure small masses. There are no dominant masses or suspicious calcifications. No other significant abnormalities are identified. There has been no significant change since the prior study. BI/SCRN MAMM (CAD)W/SARBJIT BILAT IMPRESSION: Stable bilateral screening mammogram. Yearly follow-up mammogram recommended. (A) ASSESSMENT CATEGORY: BIRADS Category 1: Negative. A letter regarding these results will be sent to the patient by the facility within 30 days. Approximately 10% of breast cancers are not detected by mammography. A normal mammogram should not delay biopsy of a clinically suspicious abnormality. [id number] Electronically Signed: Kenny Loyola MD at 14:14 EST ,
--- OUTSIDE RECORDS SUMMARY | 2023-04-11 13:37 | XMS RPT_ITS | CCD ---
Author Name Unknown Address [address] [place] [address] Organization [facility] Care Team Providers Care Elevator Troubleshooter Name Role Phone Jessica Seth Unavailable Jessica Seth Primary Care Provider Allergies Allergy Classification Reported Allergen(s) Allergy Type Date of Onset Reaction(s) Facility (3 sources) Erythromycin Drug Allergy 5 Unknown [facility] (3 sources) environemental [Other] Propensity to adverse reactions 8 [facility] Work Phone: Medications Completed/Discontinued Medications Medication Drug Class(es) Dates Sig (Normalized) Sig (Original) acetaminophen 500 mg / HYDROcodone bitartrate 5 mg oral tablet (1 source) Opioid Agonist Start: 09-17-2012 End: 06-28-2021 take 1-2 tablets by mouth every four hours as needed acetaminophen-HYDRO codone 5-500 mg tablet Take 1-2 tablets by mouth every 4 hours as needed. 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 Disorders of lipid metabolism (3 sources) Hyperlipidemia; Translations: [Hyperlipidemia, unspecified] Onset: 05-18-2009 05-18-2009 Chronic Nutritional deficiencies (3 sources) Vitamin D deficiency; Translations: [Vitamin D deficiency, unspecified] Onset: 05-20-2009 05-20-2009 Chronic Other screening for suspected conditions (not mental disorders or infectious disease) (3 sources) Patient encounter status; Translations: [Encounter for screening for malignant neoplasm of colon] Episodic Other upper respiratory disease (3 sources) Allergic rhinitis; Translations: [Allergic rhinitis, unspecified] Onset: 11-16-2004 11-16-2004 Chronic Past or Other Problems Problem Classification Problem Date Documented Da te Episodic/Chronic Biliary tract disease (3 sources) Biliary dyskinesia; Translations: [Other specified diseases of gallbladder] Onset: 09-17-2012 09-17-2012 Episodic Other bone disease and musculoskeletal deformities (3 sources) Osteopenia; Translations: [Other specified disorders of bone density and structure, unspecified site] Onset: 05-18-2009 05-18-2009 Episodic Other non-traumatic joint disorders (3 sources) Pain in lower limb; Translations: [Pain in unspecified knee] Onset: 04-27-2011 04-27-2011 Episodic Residual codes; unclassified (3 sources) Family history of ischemic heart disease; Translations: [Family history of ischemic heart disease and other diseases of the circulatory system] Onset: 05-18-2009 05-18-2009 Episodic Results Test Name Value Interpretation Reference Range Facil ity Vital Signs Date Time Vital Sign Value Performing Clinician Faci lit 08-16-2021 12:46-0400 Diastolic blood pressure 91 mm[Hg] Higinio Mireles MD Work Phone: [facility] 08-16-2021 12:46-0400 Heart rate 60 /min Higinio Mireles MD Work Phone: [facility] 08-16-2021 12:46-0400 Respiratory rate 16 /min Higinio Mireles MD Work Phone: [facility] 08-16-2021 12:46-0400 SaO2% (BldA) [Mass fraction] 97 % Higinio Mireles MD Work Phone: [facility] 08-16-2021 12:46-0400 Systolic blood pressure 130 mm[Hg] Higinio Mireles MD Work Phone: [facility] 08-16-2021 10:43-0400 Body temperature 97.5 [degF] Higinio Mireles MD Work Phone: [facility] 06-28-2021 13:07-0400 Body height 167.6 cm Rut Calhoun PA-C Work Phone: [facility] 06-28-2021 13:07-0400 Body temperature 97.11 [degF] Rut Lj PA-C Work Phone: [facility] 06-28-2021 13:07-0400 Body weight 81.65 kg Rut [place] PA-C Work Phone: [facility] 06-28-2021 13:07-0400 Diastolic blood pressure 78 mm[Hg] Rut Lj PA-C Work Phone: [facility] 06-28-2021 13:07-0400 Heart rate 89 /min Rut [place] PA-C Work Phone: [facility] 06-28-2021 13:07-0400 SaO2% (BldA) [Mass fraction] 98 % Rut Lj PA-C Work Phone: [facility] 06-28-2021 13:07-0400 Systolic blood pressure 126 mm[Hg] Rut [place] PA-C Work Phone: [facility] Encounters Encounter Date Encounter Type Care Provider Facility Start: 08-16-2021 End: 08-16-2021 Subsequent hospital visit by physician Higinio Mireles MD Work Phone: Ambulatory Surgery Procedures Date Procedure Procedure Detail Performing Clinician Start: 08-16-2021 Colon ca scrn not hi rsk ind Rut [place] PA-C Work Phone: Start: 08-16-2021 Colonoscopy Higinio laird MD Work Phone: Start: 09-01-2011 Mammography Rut Gra f PA-C Work Phone: Start: 04-08-2009 Colonoscopy Rut Gra f PA-C Work Phone: Plan of Treatment Date Care Activity Detail Author Start: 08-17-2031 Colonoscopy COLONOSCOPY [facility] Start: 08-17-2031 COLORECTAL CANCER SCREENING COLORECTAL CANCER SCREENING [facility] Start: 06-01-2021 COVID-19 VACCINE (4 - Booster for Moderna series) COVID-19 VACCINE (4 - Booster for Moderna series) [facility] Start: 12-02-2020 Urine microalbumin profile DTA P,TDAP,TD (2 - Td or Tdap) [facility] Start: 04-08-2019 Colonoscopy COLONOSCOPY [facility] Start: 04-08-2019 COLORECTAL CANCER SCREENING COLORECTAL CANCER SCREENING [facility] Start: 08-31-2016 HPV TESTING HPV TESTING [facility] Start: 08-31-2016 PAP TESTING PAP TESTING [facility] Start: 09-07-2015 DIABETES SCREEN DIABETES SCREEN [facility] Start: 05-18-2014 LIPID SCREEN LIPID SCREEN [facility] Start: 08-31-2012 Mammography MAMMOGRAM [facility] Start: 2007 SHINGRIX VACCINE (1 of 2) SHINGRIX V ACCINE (1 of 2) [facility] Start: 2002 COLOGUARD (FIT-DNA) COLOGUARD (FIT-D NA) [facility] Start: [address] COLONOGRAPHY [facility] Start: 2002 FECAL OCCULT BLOOD FECAL OCCULT BLOO D [facility] Start: 2002 SIGMOIDOSCOPY SIGMOIDOSCOPY [facility] Start: 1975 HEPATITIS C SCREENING HEPATITIS C SC REENING [facility] Start: 1975 HIV SCREENING HIV SCREENING [facility] Start: 1969 Adult depression scr [facility] assessment DEPRESSION SCREENING [facility] Immunizations Immunization Date Immunization Notes Care Provider Viktor soto 12-31-2010 influenza virus vaccine, unspecified formulation Rut [employer] Work Phone: [facility] 12-02-2010 tetanus toxoid, redu kathy diphtheria toxoid, and acellular pertussis vaccine, adsorbed Rut [employer] Work Phone: [facility] Work Phone: 02-01-2010 influenza virus vaccine, unspecified formulation [employer] Work Phone: [facility] Work Phone: 12-31-2005 influenza virus vaccine, unspecified formulation Rut [employer] Work Phone: [facility] Work Phone: 10-31-2004 tetanus and diphther ia toxoids, adsorbed, preservative free, for adult use (2 Lf of tetanus toxoid and 2 Lf of diphtheria toxoid) Rut Calhoun PA-C Work Phone: [facility] Work Phone: Payers Date Payer Category Payer Unknown [employer]ISE [employer]NOLD PPO [id number] 2020-Present [phone] [address] [place] [address] PPO [id number] Social History Date Type Detail Facility Tobacco smoking stat [facility] Ex-smoker [facility] End: 04-01-1992 History of tobacco use Current smoker [facility] End: 04-01-1992 History of tobacco use Cigarette Smoker [facility] Start: 06-28-2021 End: 08-16-2021 Alcohol intake Current drinker of alcohol (finding) [facility] Start: 1955 Sex Assigned At Not on file C [facility] Start: 06-18-2021 End: 08-16-2021 Exposure to SARS-CoV-2 (event) Not sure [facility] Clinical Notes 04-17-2006 to 08-16-2021 Divine Avalos RN - 08/16/2021 12:26 PM Maida Mireles MD - 08/16/2021 11:00 AM Maida Mireles MD - 08/16/2021 11:00 AM EDTTelephone Encounter - Amadou Sheffield - 08/15/2021 10:19 AM EDT Note Date & Type Note Facility 08-16-2021 Nurse Note Pt received in PACU. Pt moderately drowsy, but arouses easily. Denies pain or nausea. Abd soft and non distended. Divine Avalos RN documented in this encounter [facility] 08-16-2021 History and physical note UPDATED PROCEDURAL SEDATION HISTORY AND PHYSICAL EXAMINATION SERVICE DATE: 08/16/2021 SERVICE TIME: 11:46 AM PHYSICAL EXAM MUST BE COMPLETED ON ADMISSION PROCEDURE: Procedure Indications: The History and Physical (completed in the past 30 days) has been reviewed and the patient has been examined. The contents accurately reflect the patient's condition with the following additions or revisions since the H&P was completed. ASA Class: ASA Class:: Patient with mild systemic disease Examination indicates no changes. AIRWAY: Airway Visualization of Uvula: Yes Mouth opening greater than 2 fingerbreadths: Yes Neck Full Range of Motion: Yes LUNGS: Lungs clear to auscultation CARDIAC: Regular rhythm,Regular rate Provisional Diagnosis/Treatment Plan: screening colonoscopy SEDATION GOAL: Moderate This H&P can be found in the attached. SIGNATURE: Higinio Mireles MD PATIENT NAME: Emilia Guzman DATE: August 16, 2021 TIME: 11:46 AM Images from the original note were not included. HISTORY AND PHYSICAL Emilia Guzman 1955 REFERRING PHYSICIAN: Jessica Seth, * CHIEF COMPLAINT: Consult (colonoscopy) HPI: The patient is a 66 year old female referred for endoscopy. Emilia notes no colon complaints currently. Patient denies any change in bowel habits, weight changes, blood in stools, black tarry stools or abdominal pain. Denies family history of colon issues. The patient notes no upper GI complaints. Emilia has undergone prior endoscopy. Most recent colonoscopy 04/08/[address] Alfonso. Findings included diverticulosis in the descending colon, and a tortuous colon. Patient denies any recall or discomfort with that procedure. Patient's medical history is significant for past [place], hypercholesterolemia, skin cancer. She follows with Dr. Seth in primary care for her chronic medical conditions, and Dr. Campbell in cardiology. Patient denies chest pain, shortness of breath or recent hospitalizations. Denies problems with sedation in the past. PAST MEDICAL HISTORY PAST MEDICAL HISTORY Diagnosis Date Allergic rhinitis, cause unspecified Allergic rhinitis Diverticulosis of colon (without mention of hemorrhage) Heart attack (HCC) 2019 High cholesterol Skin cancer SYMPTOMATIC FEMALE CLIMACTERIC STATE 04/17/2006 PAST SURGICAL HISTORY PAST SURGICAL HISTORY Procedure Laterality Date ADENOIDECTOMY PRIMARY <AGE 14 Adenoidectomy COLONOSCOPY FLX DX W/COLLJ SPEC WHEN PFRMD 04/08/2009 Colonoscopy HEART SURGERY HX 2019 stent placed HYSTEROSCOPY, DIAGNOSTIC (SEPARATE 11/21/2001 Hysteroscopy, ashermans with severe scarring. LAPS ABD PRTM&OMENTUM DX W/WO SPEC BR/WA SPX Laparoscopy x2 LAPS SURG CHOLECYSTECTOMY W/CHOLANGIOGRAPHY 09/17/2012 Normal IOC PAST SURGICAL HISTORY OF fx left arm PAST SURGICAL HISTORY OF 07/31/2012 BCC of left side of face TONSILLECTOMY PRIMARY/SECONDARY <AGE 14 Tonsillectomy CURRENT MEDICATIONS Current Outpatient Medications Medication Sig buPROPion XL (WELLBUTRIN XL) 300 mg 24 hr tablet Take 300 mg by mouth once daily. clopidogrel (PLAVIX) 75 mg tablet Take 75 mg by mouth once daily. atorvastatin (LIPITOR) 80 mg tablet Take 80 mg by mouth daily at bedtime. aspirin, enteric coated (ASPIRIN, ENTERIC COATED) 81 mg EC tablet Take 81 mg by mouth once daily. multivitamin/iron/folic acid (CENTRUM WOMEN ORAL) Take by mouth once daily. albuterol HFA (VENTOLIN HFA) 90 mcg/actuation inhaler Inhale 2 Puffs as instructed as needed. ibuprofen 200 mg tablet Take 1-2 tablets by mouth every 4 hours as needed. FOR PAIN. Fexofenadine-Pseudoephedrine (SABAS-D 24 HOUR) 180-240 mg per 24 hr tablet Take 1 tablet by mouth as needed. fluticasone (FLONASE) 50 mcg/Actuation NASAL nasal spray Use 1 [place] in each nostril daily at bedtime. Use as directed. gabapentin (NEURONTIN) 300 mg capsule Take 1 capsule by mouth three times daily for 90 days. No current facility-administered medications for this visit. ALLERGIES: Environemental [Other] and Erythromycin PERSONAL HISTORY: SOCIAL HISTORY Social History Tobacco Use Smoking status: Former Smoker Packs/day: 0.50 Years: 20.00 Pack years: 10.00 Types: Cigarettes Quit date: 04/01/1992 Years since quittin.2 Smokeless tobacco: Never Used Vaping Use Vaping Use: Never used Substance Use Topics Alcohol use: Yes Comment: 3 to 4 times a week a glass of wine Drug use: No FAMILY HISTORY: FAMILY HISTORY FAMILY HISTORY Problem Relation Age of Onset Heart Father [place] age late 30's Cancer Father prostate cancer Cancer Mother colon Stroke Mother Osteoporosis Mother GI Mother stomach cancer -- small bowel? Diabetes Father Coronary Artery Disease Brother mid-50's Heart Paternal Grandmother Heart Paternal Grandfather Diabetes Maternal Grandmother Cancer Maternal Grandmother ovarian REVIEW OF SYMPTOMS: The review of systems data was entered by the nurse and reviewed by me Nursing Notes: Kate Otoole RN 06/28/2021 1:16 PM Signed REVIEW OF SYSTEMS: General: The patient denies fatigue, denies weight loss, NOTES weight gain, denies feeling hot, and denies feelings of cold. Eyes: The patient denies glaucoma, denies eye injury/surgery, wears glasses or contacts. Ear/Nose/Throat: The patient denies allergies, denies hayfever, denies ear infections, and denies bloody noses. Cardiovascular: The patient denies chest pain, NOTES heart disease, NOTES high blood pressure,NOTES cardiac stent, NOTES prior heart attack, denies irregular heart beat, NOTES high cholesterol, denies poor circulation, denies heart failure, other cardiac issues, denies claudication, denies cold feet, denies peripheral arterial stent. Respiratory: The patient denies tuberculosis, denies pneumonia, denies frequent cough, denies pulmonary embolism, denies shortness of breath, and denies coughing up blood. Gastrointestinal: The patient denies difficulty swallowing, NOTES acid reflux, denies ulcers, denies vomiting, denies jaundice/hepatitis, NOTES gallbladder problems, denies black or tarry stools, NOTES hemorrhoids, denies bleeding from rectum, denies diverticulitis, NOTES constipation, denies diarrhea, denies loss of stool control, and denies hernias. Kidney/Bladder: The patient denies kidney stones, denies urine infections, and denies bloody urine. Skin: The patient NOTES a history of skin cancer, denies bleeding/changing moles, and denies a history of skin rash. Neurologic: The patient denies a history of epilepsy/convulsions, denies headaches, denies head/spinal injuries, and denies stroke/TIA. Psychiatric: The patient denies psychiatric medications, NOTES depression, and denies voices, denies substance abuse. Endocrine: The patient denies thyroid disorders, denies diabetes, and denies hormonal problems. Hematologic: The patient denies a history of bruising, denies bleeding, and denies anemia, denies blood clots. Infections: The patient denies a history of measles and mumps, denies rheumatic fever, and denies sexually transmitted diseases. Musculoskeletal: The patient denies back pain/injury, denies back problems, denies sciatica, denies knee/foot trouble, denies arthritis, or denies gout. When was patient's last Mammogram screening? 2021 Last Colonoscopy: 2019 Kate Otoole RN I have confirmed and edited as necessary, the PFSH and ROS obtained by others. Rut Calhoun PA-C PHYSICAL EXAMINATION: General: The patient is 66 year old female, well nourished, well hydrated in no acute distress. The patient is oriented to time, place, and person. VITALS: Blood pressure 126/78, pulse 89, temperature 36.2 C (97.1 F), height 167.6 cm (5' 6 ), weight 81.6 kg (180 lb), last menstrual period 02/07/2006, SpO2 98 %. Body mass index is 29.05 kg/m . HEENT: Normal cephalic, ataumatic, pupils are equally round, sclera are anicteric, mucous membranes are moist, oropharynx is clear. Neck has no masses, asymmetry or lymphadenopathy. Respiratory: Clear to auscultation and percussion. Normal respiratory excursion and pattern. Cardiac: Examination is regular rate and rhythm. Normal S1/S2 Abdominal exam: Soft, nontender, with no palpable masses. No hepatosplenomegaly. No palpable hernias. Extremities: no clubbing, cyanosis or edema. No adenopathy. LABORATORY VALUES: As Noted RADIOLOGIC STUDIES: As Noted Assessment IMPRESSION: encounter for screening colonoscopy PLAN: I have reviewed my findings with the surgeon. Will plan for lower endoscopy. We discussed the risks and benefits of the planned endoscopy. I have informed the patient that complications can occur including failure to complete the endoscopy and perforation. The patient had the opportunity to ask questions concerning the planned endoscopy. My staff has also explained the procedure to the patient in understandable terms and has given the patient printed material concerning the procedure. The patient freely consents to surgery. The patient was offered a surgery/procedure at a [facility]. I have counseled the patient regarding the risk of exposure to and/or potential harm posed by the COVID-19 virus with having a surgery/procedure at this time versus the risk of delaying the surgery/procedure. It is not possible to know either the risk of delaying the surgery or procedure or chance of getting an infection with perfect accuracy, but a joint decision was made between the patient and myself to proceed at this time with endoscopy. I plan to use Golytely bowel preparation Patient to continue on Plavix and ASA for procedures per Dr. Mireles I have explained to the patient the difference between IV conscious sedation and MAC anesthesia - and I have offered either, according to the patient's wishes. I have explained that with IV conscious sedation there is no anesthesia provider available and therefore there is a limitation of the amount of IV medications that can be given and that the patient may wake up in the middle of the procedure and/or experience pain/discomfort during the procedure. Further discussion was done and the patient was given the opportunity to ask questions and all questions were answered. The patient chooses IV conscious sedation Diagnoses: (Z12.11) Encounter for screening for malignant neoplasm of colon (primary encounter diagnosis) (Q43.8) Tortuous colon Consultation requested by Dr. Seth for an opinion regarding screening colonoscopy. My final recommendations will be communicated back to the requesting physician by way of shared Medical record or letter to requesting physician via US mail. Rut Calhoun PA-C documented in this encounter [facility] 08-15-2021 Miscellaneous Notes Rx sent patient needs prep called into [facility]. Procedure is tomorrow. Thank you, Amadou Sheffield 08-16-2021 COLON ASC documented in this encounter [facility] 06-28-2021 Note HNO ID: [id number] Author: Rut Calhoun PA-C Service: ? Author Type: Physician Senior Ui Web Developer Type: Progress Notes Filed: 07/04/2021 1:02 PM Note Text: HISTORY AND PHYSICAL Emilia Guzman 1955 REFERRING PHYSICIAN: Jessica Seth, * CHIEF COMPLAINT: Consult (colonoscopy) HPI: The patient is a 66 year old female referred for endoscopy. Emilia notes no colon complaints currently. Patient denies any change in bowel habits, weight changes, blood in stools, black tarry stools or abdominal pain. Denies family history of colon issues. The patient notes no upper GI complaints. Emilia has undergone prior endoscopy. Most recent colonoscopy 04/08/[address] Alfonso. Findings included diverticulosis in the descending colon, and a tortuous colon. Patient denies any recall or discomfort with that procedure. Patient's medical history is significant for past [place], hypercholesterolemia, skin cancer. She follows with Dr. Seth in primary care for her chronic medical conditions, and Dr. Campbell in cardiology. Patient denies chest pain, shortness of breath or recent hospitalizations. Denies problems with sedation in the past. PAST MEDICAL HISTORY Diagnosis Date - Allergic rhinitis, cause unspecified Allergic rhinitis - Diverticulosis of colon (without mention of hemorrhage) - Heart attack (HCC) 2019 - High cholesterol - Skin cancer - SYMPTOMATIC FEMALE CLIMACTERIC STATE 04/17/2006 PAST SURGICAL HISTORY Procedure Laterality Date - ADENOIDECTOMY PRIMARY Adenoidectomy - COLONOSCOPY FLX DX W/COLLJ SPEC WHEN PFRMD 04/08/2009 Colonoscopy - HEART SURGERY HX 2019 stent placed - HYSTEROSCOPY, DIAGNOSTIC (SEPARATE 11/21/2001 Hysteroscopy, ashermans with severe scarring. - LAPS ABD PRTMANDOMENTUM DX W/WO SPEC BR/WA SPX Laparoscopy x2 - LAPS SURG CHOLECYSTECTOMY W/CHOLANGIOGRAPHY 09/17/2012 Normal IOC - PAST SURGICAL HISTORY OF fx left arm - PAST SURGICAL HISTORY OF 07/31/2012 BCC of left side of face - TONSILLECTOMY PRIMARY/SECONDARY Tonsillectomy Current Outpatient Medications Medication Sig - buPROPion XL (WELLBUTRIN XL) 300 mg 24 hr tablet Take 300 mg by mouth once daily. - clopidogrel (PLAVIX) 75 mg tablet Take 75 mg by mouth once daily. - atorvastatin (LIPITOR) 80 mg tablet Take 80 mg by mouth daily at bedtime. - aspirin, enteric coated (ASPIRIN, ENTERIC COATED) 81 mg EC tablet Take 81 mg by mouth once daily. - multivitamin/iron/folic acid (CENTRUM WOMEN ORAL) Take by mouth once daily. - albuterol HFA (VENTOLIN HFA) 90 mcg/actuation inhaler Inhale 2 Puffs as instructed as needed. - ibuprofen 200 mg tablet Take 1-2 tablets by mouth every 4 hours as needed. FOR PAIN. - Fexofenadine-Pseudoephedrine (SABAS-D 24 HOUR) 180-240 mg per 24 hr tablet Take 1 tablet by mouth as needed. - fluticasone (FLONASE) 50 mcg/Actuation NASAL nasal spray Use 1 [place] in each nostril daily at bedtime. Use as directed. - gabapentin (NEURONTIN) 300 mg capsule Take 1 capsule by mouth three times daily for 90 days. No current facility-administered medications for this visit. ALLERGIES: Environemental [Other] and Erythromycin PERSONAL HISTORY: Social History Tobacco Use - Smoking status: Former Smoker Packs/day: 0.50 Years: 20.00 Pack years: 10.00 Types: Cigarettes Quit date: 04/01/1992 Years since quittin.2 - Smokeless tobacco: Never Used Vaping Use - Vaping Use: Never used Substance Use Topics - Alcohol use: Yes Comment: 3 to 4 times a week a glass of wine - Drug use: No FAMILY HISTORY: FAMILY HISTORY Problem Relation Age of Onset - Heart Father [place] age late 30's - Cancer Father prostate cancer - Cancer Mother colon - Stroke Mother - Osteoporosis Mother - GI Mother stomach cancer -- small bowel? - Diabetes Father - Coronary Artery Disease Brother mid-50's - Heart Paternal Grandmother - Heart Paternal Grandfather - Diabetes Maternal Grandmother - Cancer Maternal Grandmother ovarian REVIEW OF SYMPTOMS: The review of systems data was entered by the nurse and reviewed by wa Nursing Notes: Kate Otoole RN 06/28/2021 1:16 PM Signed REVIEW OF SYSTEMS: General: The patient denies fatigue, denies weight loss, NOTES weight gain, denies feeling hot, and denies feelings of cold. Eyes: The patient denies glaucoma, denies eye injury/surgery, wears glasses or contacts. Ear/Nose/Throat: The patient denies allergies, denies hayfever, denies ear infections, and denies bloody noses. Cardiovascular: The patient denies chest pain, NOTES heart disease, NOTES high blood pressure,NOTES cardiac stent, NOTES prior heart attack, denies irregular heart beat, NOTES high cholesterol, denies poor circulation, denies heart failure, other cardiac issues, denies claudication, denies cold feet, denies peripheral arterial stent. Respiratory: The patient denies tuberculosis, denies pneumonia, denies frequent cough, d (more content not included)... [facility] 06-28-2021 Nurse Note REVIEW OF SYSTEMS: General: The patient denies fatigue, denies weight loss, NOTES weight gain, denies feeling hot, and denies feelings of cold. Eyes: The patient denies glaucoma, denies eye injury/surgery, wears glasses or contacts. Ear/Nose/Throat: The patient denies allergies, denies hayfever, denies ear infections, and denies bloody noses. Cardiovascular: The patient denies chest pain, NOTES heart disease, NOTES high blood pressure,NOTES cardiac stent, NOTES prior heart attack, denies irregular heart beat, NOTES high cholesterol, denies poor circulation, denies heart failure, other cardiac issues, denies claudication, denies cold feet, denies peripheral arterial stent. Respiratory: The patient denies tuberculosis, denies pneumonia, denies frequent cough, denies pulmonary embolism, denies shortness of breath, and denies coughing up blood. Gastrointestinal: The patient denies difficulty swallowing, NOTES acid reflux, denies ulcers, denies vomiting, denies jaundice/hepatitis, NOTES gallbladder problems, denies black or tarry stools, NOTES hemorrhoids, denies bleeding from rectum, denies diverticulitis, NOTES constipation, denies diarrhea, denies loss of stool control, and denies hernias. Kidney/Bladder: The patient denies kidney stones, denies urine infections, and denies bloody urine. Skin: The patient NOTES a history of skin cancer, denies bleeding/changing moles, and denies a history of skin rash. Neurologic: The patient denies a history of epilepsy/convulsions, denies headaches, denies head/spinal injuries, and denies stroke/TIA. Psychiatric: The patient denies psychiatric medications, NOTES depression, and denies voices, denies substance abuse. Endocrine: The patient denies thyroid disorders, denies diabetes, and denies hormonal problems. Hematologic: The patient denies a history of bruising, denies bleeding, and denies anemia, denies blood clots. Infections: The patient denies a history of measles and mumps, denies rheumatic fever, and denies sexually transmitted diseases. Musculoskeletal: The patient denies back pain/injury, denies back problems, denies sciatica, denies knee/foot trouble, denies arthritis, or denies gout. When was patient's last Mammogram screening? 2021 Last Colonoscopy: 2019 Kate Otoole RN documented in this encounter [facility] 06-28-2021 History of Presen t illness Narrative HISTORY AND PHYSICAL Emilia Guzman 1955 REFERRING PHYSICIAN: Jessica Seth, * CHIEF COMPLAINT: Consult (colonoscopy) HPI: The patient is a 66 year old female referred for endoscopy. Emilia notes no colon complaints currently. Patient denies any change in bowel habits, weight changes, blood in stools, black tarry stools or abdominal pain. Denies family history of colon issues. The patient notes no upper GI complaints. Emilia has undergone prior endoscopy. Most recent colonoscopy 04/08/[address] Alfonso. Findings included diverticulosis in the descending colon, and a tortuous colon. Patient denies any recall or discomfort with that procedure. Patient's medical history is significant for past [place], hypercholesterolemia, skin cancer. She follows with Dr. Seth in primary care for her chronic medical conditions, and Dr. Campbell in cardiology. Patient denies chest pain, shortness of breath or recent hospitalizations. Denies problems with sedation in the past. PAST MEDICAL HISTORY Diagnosis Date Allergic rhinitis, cause unspecified Allergic rhinitis Diverticulosis of colon (without mention of hemorrhage) Heart attack (HCC) 2019 High cholesterol Skin cancer SYMPTOMATIC FEMALE CLIMACTERIC STATE 04/17/2006 PAST SURGICAL HISTORY Procedure Laterality Date ADENOIDECTOMY PRIMARY <AGE 14 Adenoidectomy COLONOSCOPY FLX DX W/COLLJ SPEC WHEN PFRMD 04/08/2009 Colonoscopy HEART SURGERY HX 2019 stent placed HYSTEROSCOPY, DIAGNOSTIC (SEPARATE 11/21/2001 Hysteroscopy, ashermans with severe scarring. LAPS ABD PRTM&OMENTUM DX W/WO SPEC BR/WA SPX Laparoscopy x2 LAPS SURG CHOLECYSTECTOMY W/CHOLANGIOGRAPHY 09/17/2012 Normal IOC PAST SURGICAL HISTORY OF fx left arm PAST SURGICAL HISTORY OF 07/31/2012 BCC of left side of face TONSILLECTOMY PRIMARY/SECONDARY <AGE 14 Tonsillectomy Current Outpatient Medications Medication Sig buPROPion XL (WELLBUTRIN XL) 300 mg 24 hr tablet Take 300 mg by mouth once daily. clopidogrel (PLAVIX) 75 mg tablet Take 75 mg by mouth once daily. atorvastatin (LIPITOR) 80 mg tablet Take 80 mg by mouth daily at bedtime. aspirin, enteric coated (ASPIRIN, ENTERIC COATED) 81 mg EC tablet Take 81 mg by mouth once daily. multivitamin/iron/folic acid (CENTRUM WOMEN ORAL) Take by mouth once daily. albuterol HFA (VENTOLIN HFA) 90 mcg/actuation inhaler Inhale 2 Puffs as instructed as needed. ibuprofen 200 mg tablet Take 1-2 tablets by mouth every 4 hours as needed. FOR PAIN. Fexofenadine-Pseudoephedrine (SABAS-D 24 HOUR) 180-240 mg per 24 hr tablet Take 1 tablet by mouth as needed. fluticasone (FLONASE) 50 mcg/Actuation NASAL nasal spray Use 1 [place] in each nostril daily at bedtime. Use as directed. gabapentin (NEURONTIN) 300 mg capsule Take 1 capsule by mouth three times daily for 90 days. No current facility-administered medications for this visit. ALLERGIES: Environemental [Other] and Erythromycin PERSONAL HISTORY: Social History Tobacco Use Smoking status: Former Smoker Packs/day: 0.50 Years: 20.00 Pack years: 10.00 Types: Cigarettes Quit date: 04/01/1992 Years since quittin.2 Smokeless tobacco: Never Used Vaping Use Vaping Use: Never used Substance Use Topics Alcohol use: Yes Comment: 3 to 4 times a week a glass of wine Drug use: No FAMILY HISTORY: FAMILY HISTORY Problem Relation Age of Onset Heart Father [place] age late 30's Cancer Father prostate cancer Cancer Mother colon Stroke Mother Osteoporosis Mother GI Mother stomach cancer -- small bowel? Diabetes Father Coronary Artery Disease Brother mid-50's Heart Paternal Grandmother Heart Paternal Grandfather Diabetes Maternal Grandmother Cancer Maternal Grandmother ovarian REVIEW OF SYMPTOMS: The review of systems data was entered by the nurse and reviewed by me Nursing Notes: Kate Otoole RN 06/28/2021 1:16 PM Signed REVIEW OF SYSTEMS: General: The patient denies fatigue, denies weight loss, NOTES weight gain, denies feeling hot, and denies feelings of cold. Eyes: The patient denies glaucoma, denies eye injury/surgery, wears glasses or contacts. Ear/Nose/Throat: The patient denies allergies, denies hayfever, denies ear infections, and denies bloody noses. Cardiovascular: The patient denies chest pain, NOTES heart disease, NOTES high blood pressure,NOTES cardiac stent, NOTES prior heart attack, denies irregular heart beat, NOTES high cholesterol, denies poor circulation, denies heart failure, other cardiac issues, denies claudication, denies cold feet, denies peripheral arterial stent. Respiratory: The patient denies tuberculosis, denies pneumonia, denies frequent cough, denies pulmonary embolism, denies shortness of breath, and denies coughing up blood. Gastrointestinal: The patient denies difficulty swallowing, NOTES acid reflux, denies ulcers, denies vomiting, denies jaundice/hepatitis, NOTES gallbladder problems, denies black or tarry stools, NOTES hemorrhoids, denies bleeding from rectum, denies diverticulitis, NOTES constipation, denies diarrhea, denies loss of stool control, and denies hernias. Kidney/Bladder: The patient denies kidney stones, denies urine infections, and denies bloody urine. Skin: The patient NOTES a history of skin cancer, denies bleeding/changing moles, and denies a history of skin rash. Neurologic: The patient denies a history of epilepsy/convulsions, denies headaches, denies head/spinal injuries, and denies stroke/TIA. Psychiatric: The patient denies psychiatric medications, NOTES depression, and denies voices, denies substance abuse. Endocrine: The patient denies thyroid disorders, denies diabetes, and denies hormonal problems. Hematologic: The patient denies a history of bruising, denies bleeding, and denies anemia, denies blood clots. Infections: The patient denies a history of measles and mumps, denies rheumatic fever, and denies sexually transmitted diseases. Musculoskeletal: The patient denies back pain/injury, denies back problems, denies sciatica, denies knee/foot trouble, denies arthritis, or denies gout. When was patient's last Mammogram screening? 2021 Last Colonoscopy: 2019 Kate Otoole RN I have confirmed and edited as necessary, the PFSH and ROS obtained by others. Rut Calhoun PA-C PHYSICAL EXAMINATION: General: The patient is 66 year old female, well nourished, well hydrated in no acute distress. The patient is oriented to time, place, and person. VITALS: Blood pressure 126/78, pulse 89, temperature 36.2 C (97.1 F), height 167.6 cm (5' 6 ), weight 81.6 kg (180 lb), last menstrual period 02/07/2006, SpO2 98 %. Body mass index is 29.05 kg/m . HEENT: Normal cephalic, ataumatic, pupils are equally round, sclera are anicteric, mucous membranes are moist, oropharynx is clear. Neck has no masses, asymmetry or lymphadenopathy. Respiratory: Clear to auscultation and percussion. Normal respiratory excursion and pattern. Cardiac: Examination is regular rate and rhythm. Normal S1/S2 Abdominal exam: Soft, nontender, with no palpable masses. No hepatosplenomegaly. No palpable hernias. Extremities: no clubbing, cyanosis or edema. No adenopathy. LABORATORY VALUES: As Noted RADIOLOGIC STUDIES: As Noted Assessment IMPRESSION: encounter for screening colonoscopy PLAN: I have reviewed my findings with the surgeon. Will plan for lower endoscopy. We discussed the risks and benefits of the planned endoscopy. I have informed the patient that complications can occur including failure to complete the endoscopy and perforation. The patient had the opportunity to ask questions concerning the planned endoscopy. My staff has also explained the procedure to the patient in understandable terms and has given the patient printed material concerning the procedure. The patient freely consents to surgery. The patient was offered a surgery/procedure at a [facility] facility. I have counseled the patient regarding the risk of exposure to and/or potential harm posed by the COVID-19 virus with having a surgery/procedure at this time versus the risk of delaying the surgery/procedure. It is not possible to know either the risk of delaying the surgery or procedure or chance of getting an infection with perfect accuracy, but a joint decision was made between the patient and myself to proceed at this time with endoscopy. I plan to use Golytely bowel preparation Patient to continue on Plavix and ASA for procedures per Dr. Mireles I have explained to the patient the difference between IV conscious sedation and MAC anesthesia - and I have offered either, according to the patient's wishes. I have explained that with IV conscious sedation there is no anesthesia provider available and therefore there is a limitation of the amount of IV medications that can be given and that the patient may wake up in the middle of the procedure and/or experience pain/discomfort during the procedure. Further discussion was done and the patient was given the opportunity to ask questions and all questions were answered. The patient chooses IV conscious sedation Diagnoses: (Z12.11) Encounter for screening for malignant neoplasm of colon (primary encounter diagnosis) (Q43.8) Tortuous colon Consultation requested by Dr. Seth for an opinion regarding screening colonoscopy. My final recommendations will be communicated back to the requesting physician by way of shared Medical record or letter to requesting physician via US mail. Rut Calhoun PA-C documented in this encounter [facility] documented as of this encounter (statuses as of 07/04/2021) [facility] History of Past illness Narrative* Problem Noted Date Resolved Date Symptomatic menopausal or female climacteric sta fede 04/17/2006 05/18/2009 Intrauterine synechiae 02/13/2006 0 Postmenopausal bleeding 02/13/2006 05/18/19 10 IRREGULAR MENSES 01/10/2005 05/18/2009 documented as of this encounter (statuses as of 08/17/2021) [facility] History of Past illness Narrative* Problem Noted Date Resolved Date Symptomatic menopausal or female climacteric sta fede 04/17/2006 05/18/2009 Intrauterine synechiae 02/13/2006 0 Postmenopausal bleeding 02/13/2006 05/18/19 10 IRREGULAR MENSES 01/10/2005 05/18/2009 documented as of this encounter (statuses as of 09/04/2021) [facility] note* Diagnosis Encounter for screening for malignant neoplasm of colon- Primary Special screening for malignant neoplasms, colon Tortuous colon Volvulus documented in this encounter [facility] note* Diagnosis Screening for colon cancer Special screening for malignant neoplasms, colon documented in this encounter [facility] note* Diagnosis Screening for colon cancer- Primary Special screening for malignant neoplasms, colon documented in this encounter [facility] for referral (narrative)* Outpatient Procedure (Routine) - Closed Specialty Diagnoses / Procedures Referred By Lucita tong Referred To Contact [facility] Diagnoses Screening for colon cancer Procedures COLONOSCOPY SCREENING COLONOSCOPY FLX DX W/COLLJ SPEC WHEN Rut Cervantes PA-C [address] [place] [address] [facility] Disease [address] [address] Referral ID Status Reason Start Date Expiration Date V isits Requested Visits Authorized [id number] Closed Auto-Generate d Referral 06/28/2021 06/28/2022 1 1 [facility] for referral (narrative)* Outpatient Procedure (Routine) - Closed Specialty Diagnoses / Procedures Referred By Lucita tong Referred To Contact [facility] Diagnoses Screening for colon cancer Procedures COLONOSCOPY SCREENING COLONOSCOPY FLX DX W/COLLJ SPEC WHEN Rut Cervantes PA-C [address] [place] [address] [address] Referral ID Status Reason Start Date Expiration Date V isits Requested Visits Authorized [id number] Closed Auto-Generate d Referral 06/28/2021 06/28/2022 1 1 [facility] for visit Narrative* Auth/Cert Specialty Diagnoses / Procedures Referred By Lucita tong Referred To Contact [facility] Diagnoses Screening for colon cancer [Z12.11] Procedures COLONOSCOPY FLX W/REMOVAL OF FOREIGN BODY(S) COLONOSCOPY SCREENING [GI[facility] [address] [place] [address] Referral ID Status Reason Start Date Expiration Date Visits Re quested Visits Authorized [id number] 1 1 [facility] Medications Administered Section Inactive Administered Medications - up to 3 most recent administrations Medication Order MAR Action Action Date Dose Rate Site diphenhydrAMINE 12.5-50 mg injection (BENADRYL) 12.5-50 mg, INTRAVENOUS, DIRECTED, Starting on Sun08/16/21 at 1200, Until Sun08/16/21 at 1559, DOSING DIRECTED BY PHYSICIAN FOR PROCEDURAL SEDATION ONLY, Intraprocedure Given 08/16/2021 12:08 PM EDT 50 mg fentaNYL 50 mcg/mL 25-100 mcg injection (SUBLIMAZE) 25-100 mcg, INTRAVENOUS, DIRECTED, Starting on Sun08/16/21 at 1200, Until Sun08/16/21 at 1559, DOSING DIRECTED BY PHYSICIAN FOR PROCEDURAL SEDATION ONLY, Intraprocedure Given 08/16/2021 12:05 PM EDT 25 mcg Advance Directives Documents on File Type Date Recorded 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 Expl anation Advance Directive(s) 08/16/2021 10:17 AM Advance Directive(s) 08/12/2021 1:17 PM Advance Directive(s) 07/06/2021 3:23 PM Summary Purpose Family History No Family History Records Found Additional Source Comments Source Comments (unrecognize d section and content) In the event this informatio n is protected by the Federal Confidentiality of Alcohol and Drug Abuse Patient Records regulations: The Federal rules restrict any use of the information to criminally investigate or prosecute any alcohol or drug abuse patient.[facility] the event this information is protected by the Federal Confidentiality of Alcohol and Drug Abuse Patient Records regulations: The Federal rules restrict any use of the information to criminally investigate or prosecute any alcohol or drug abuse patient.[facility] the event this information is protected by the Federal Confidentiality of Alcohol and Drug Abuse Patient Records regulations: The Federal rules restrict any use of the information to criminally investigate or prosecute any alcohol or drug abuse patient.[facility] Reason for Visit (unrecogniz ed section and content) Reason Comments 08-16-2021 [facility] Care Teams (unrecognized sec tion and content) Elevator Troubleshooter Relationship Specialty Start Date End Date RadhaaspenSean hatfieldandrés Cedeno [address] [place] [address] PCP - General Family Practice 05/22/19 Radhashadi Jessica Pao [address] [place] [address] Referring Family Practice 05/01/19 Elevator Troubleshooter Relationship Specialty Start Date End Date Radhashadi Jessicaandrés Cedeno [address] [place] [address] PCP - General Family Practice 05/22/19 Dorinda Jessicaandrés Cedeno [address] [place] [address] Referring Family Practice 05/01/19 INFORMATION SOURCE (unrecogn ized section and content) FOR RECORDS PERTAINING TO PATIENTS WHO ARE OR HAVE BEEN ENROLLED IN A CHEMICAL DEPENDENCY/SUBSTANCEABUSE PROGRAM, SOME INFORMATION MAY BE OMITTED. This clinical summary was aggregated from multiple sources. Caution should be exercised in using it in the provision of clinical care. This summary normalizes information from multiple sources, and as a consequence, information in this document may materially change the coding, format and clinical context of patient data. In addition, data may be omitted in some cases. CLINICAL DECISIONS SHOULD BE BASED ON THE PRIMARY CLINICAL RECORDS. [facility] [employer] [facility]. provides no warranty or guarantee of the accuracy or completeness of information in this document.
== END | disposition home or self-care (01) ==
LOC: OPBI 13:14
PROVIDERS: PCP Family Medicine; Referring Provider Family Medicine; Visit Provider Family Medicine
DX: Z12.31 Encounter for screening mammogram for malignant neoplasm of breast (principal)
CPT/HCPCS: 77063; 77067

== ENCOUNTER → 2023-05-24 | Outpatient (CLI) | payer BC, SELFPAY ==
[2023-05-24 17:50] LABS: Absolute Lymphocyte Count 1.89 X10^3/uL (0.83-4.51); Absolute Neutrophil Count 2.3 X10^3/uL (2.0-7.7); Basophil# 0.06 X10^3/uL; Basophil% 1.3 % (0-1); Eosinophil# 0.16 X10^3/uL; Eosinophils% 3.4 % (0-5); Hematocrit 41.2 % (37-47); Hemoglobin 13.3 g/dL (12.0-15.0); Lymphocyte # 1.89 X10^3/ul (0.83-4.51); Lymphocyte % 40.2 % (19-41); Mean Corp Hgb Conc 32.3 g/dL (32-36); Mean Platelet Vol. 9.7 fl (6.2-12.0); Monocyte# 0.33 X10^3/uL; NRBC Flagged by Analyzer 0 % (0-5); Neutrophil # 2.25 X10^3/uL (2.7-7.7); Neutrophil % 47.9 % (47-70); Platelet Count 283 K/mm3 (150-450); RBC Distribution Width CV 12.7 % (11.6-14.6); RBC Distribution Width SD 43.3 fl (35.1-43.9); Red Blood Count 4.43 M/mm3 (4.2-5.4); White Blood Count 4.7 K/mm3 (4.4-11.0)
[2023-05-24 18:26] LABS: Hemoglobin A1c 5.9 % (3.8-5.6)
[2023-05-24 18:50] LABS: Anion Gap 6 (5-15); BUN 18 mg/dL (7-18); Calcium,Total 9.2 mg/dL (8.5-10.1); Chloride 108 mmol/L (98-107); EST Glomerular Filtration Rate 59 mL/min (>60); Est Glom Filt Rate - Afr Amer 71 mL/min (>60); Glucose 105 mg/dL (74-106); Potassium 3.9 mmol/L (3.5-5.1); Sodium Level 139 mmol/L (136-145); Thyroid Stim Hormone (TSH) 2.77 uIU/mL (0.358-3.74)
== END | disposition home or self-care (01) ==
LOC: BFHLAB 14:59
PROVIDERS: PCP Family Medicine; Visit Provider Family Medicine
DX: I25.10 Atherosclerotic heart disease of native coronary artery without angina pectoris (principal); R73.01 Impaired fasting glucose; R63.5 Abnormal weight gain
CPT/HCPCS: 80048; 83036; 84443; 85025

== ENCOUNTER 2023-07-18 11:30 | Outpatient (RCR) | payer BC, SELFPAY ==
--- NOTE | 2023-06-06 16:23 | HP.PTEVAL ---
Patient's Visit Information Visit Information Visit Information: GAL BOURGEOIS is a 68 year old F referred to Physical Therapy by Dr. Jessica Seth MD with a diagnosis of L groin pain. Date of Evaluation: 06/06/23 Physical Therapist: RUSH Priest Visit Plan Frequency: 2x /Week Duration: 4 Weeks Plan: 2X/ week for 4 weeks for Give gastroc stretch, stretch hip flexor and piriformis, strengthen L hip and core, US to the L hip flexor and and MT to the same with HEP. HEP: seated and supine piriformis stretch (knee to opp shoulder), Lito stretch off the edge of the able with a strap, standing heel and toe raises Subjective Subjective: Pt has had this pain for awhile ( 2019 she fell and hit some ice by tripping over a ridge and kicked it and sprawled FW and she pulled some thing on the L front side of her hip and at the time she had pain all the way down to here foot. No N&T. She went to PT for awhile and stopped cause she was doing away. She has pain when she presses on the the anterior front of her hip and if she lifts something during the day she will get pain in the front of the groin. If she gets up at night she is still and does the old lady walk. She walks the dog and does YOGA and walks. She can do everything except if she goes up and down the steps more than 2 flights. Her L leg feels more weak and like it does not have full strength. She was diagnosed by a PCP but never did an x-ray and still no x-ray has been done. She is retired. She has no back pain. Stairs hurt if carrying things, recumbant bike etc. Objective Objective: Gait: walks with decrease stance time on the L LE, trips on L foot at times. LE MMT: R hip flex 17.8 and L 13.2 R knee ext 17.8 and L 17.8 R knee flex 8,9 and L 7.8 Hip ABD R 8.9 and L 14.2 R hip ext 11.8 and L 9.6 Trunk AROM: Flexion 100%, EXT 50%, SB B 75%, ROT B 75% Patella DTR's 0/3 B SLUMP test -B Tight gastroc on the L and tight B HS Palpation: tender ASIS and hip flexor SLR on the L slowly increased her R anterior hip pain PRONE on ELBOWS wtih L knee bent increased her L anterior hip pain Balance/Special Test Scores Lower Extremity Functional Score: 44 Goals Goal 1:: I HEP Goal Time Frame: 4-6 Weeks Goal 2:: Increase L hip flexor, piriformis, gastroc flexibility Goal Time Frame: 4-6 Weeks Goal 3:: Be able to go up and down stairs without pain Goal Time Frame: 4-6 Weeks Goal 4:: Increase L hip strength (LE MMT: R hip flex 17.8 and L 13.2 R knee ext 17.8 and L 17.8 R knee flex 8,9 and L 7.8 Hip ABD R 8.9 and L 14.2 R hip ext 11.8 and L 9.6) Goal Time Frame: 4-6 Weeks Rehabilitation Potential Rehabilitation Potential: Good Anticipated Interventions Patient/Client Instruction: Educate patient on: Condition and Plan of Care For the Purpose of:: To decrease pain, To increase ROM, To improve nutrient delivery to tissue, To improve muscle performance and motor function, To improve ability to perform ADL's, To increase tolerance to activity/condition/position, To improve performance and independence with ADL's, To decrease level of supervision to perform tasks, To improve ability of physical actions for home/community/work/leisure, To improve gait and locomotor functions, To improve health of tissue, To decrease soft tissue restriction and To increase flexibility/ROM Therapeutic Exercise to Include: Strength training, Postural training, Flexibilty training, Gait and locomotor training, Neuromotor development, Active ROM and Dynamic Lumbar Stabilization For the Purpose of:: To decrease pain, To decrease swelling/inflammation, To increase ROM, To improve nutrient delivery to tissue, To improve muscle performance and motor function, To improve ability to perform ADL's, To increase tolerance to activity/condition/position, To improve performance and independence with ADL's, To decrease level of supervision to perform tasks, To improve ability of physical actions for home/community/work/leisure, To improve gait and locomotor functions, To improve health of tissue, To decrease soft tissue restriction and To increase flexibility/ROM Functional Training to Include: Gait training For the Purpose of:: To improve gait and locomotor functions Manual Therapy Techniques to Include: Mobilization, Passive ROM and Soft tissue mobilization For the Purpose of:: To decrease pain, To increase ROM, To improve nutrient delivery to tissue, To improve muscle performance and motor function, To increase tolerance to activity/condition/position, To improve health of tissue, To decrease soft tissue restriction and To increase flexibility/ROM Cryotherapy (ice pack, ice massage): Yes Ultrasound (thermal/non thermal): Yes For the Purpose of:: To decrease pain, To increase ROM and To improve nutrient delivery to tissue Text: Thank you for the opportunity to evaluate your patient. For Medicare and Medicare HMO plans, please review the plan of care and approve it. It will need to be FAXED BACK to us at [phone] for Medicare purposes. For Medicare only, by signing this I certify the plan of care. Please let me know if there are questions or concerns regarding this plan of care. Physician Signature: Date:
--- NOTE | 2023-07-18 12:00 | HP.PTDCSUM ---
Discharge Summary D/C summary: It has been my pleasure to treat GAL BOURGEOIS referred by Dr. Jessica Seth MD, with the diagnosis of L groin pain for a total of 8 visit(s). Discharge Date: 07/18/23 Please see the following information for a summary of their discharge status. Subjective Subjective: Pt reports that she is a lot better. 75% better. She is not waking up with pain. Overall Improvement % Improvement: 75 Objective Objective/Function: Pt is Indep in HEP except for manual deep piriformis stretch Pt has no pain going up and down the stairs and feels she is getting stronger Goals Goal 1:: I HEP Goal Progress: Goal Met Goal 2:: Increase L hip flexor, piriformis, gastroc flexibility Goal Progress: Goal Met Goal 3:: Be able to go up and down stairs without pain Goal Progress: Goal Met Goal 4:: Increase L hip strength (LE MMT: R hip flex 17.8 and L 13.2 R knee ext 17.8 and L 17.8 R knee flex 8,9 and L 7.8 Hip ABD R 8.9 and L 14.2 R hip ext 11.8 and L 9.6) Plan Plan: DC PT to HEP D/C Information Discharge Comments: DC PT to HEP d/c sentence: If there are questions or concerns regarding this patient's physical therapy, please feel free to call me at [phone]. Thank you for the referral of this patient. Sincerely, Daniella Brown, MPT Balance/Gait/Functional tests Balance/Special Test Scores Lower Extremity Functional Score: 67 Improvement % Improvement: 75
== END 2023-07-18 13:04 | disposition home or self-care (01) ==
LOC: PT 11:30
PROVIDERS: PCP Family Medicine; Referring Provider Family Medicine; Visit Provider Family Medicine
DX: S76.212D Strain of adductor muscle, fascia and tendon of left thigh, subsequent encounter (principal)
CPT/HCPCS: 97110; 97162

== ENCOUNTER → 2024-02-14 | Outpatient (CLI) | payer MEDICARE, OTHER, SELFPAY ==
[2024-02-14 14:31] LABS: AST(SGOT) 11 U/L (15-37); Alanine Aminotransfer ALT/SGPT 23 U/L (13-56); Alkaline Phosphatase 95 U/L (45-117); Anion Gap 3 (5-15); BUN 25 mg/dL (7-18); BUN/Creat Ratio 25.3 RATIO (10-20); Bilirubin, Direct 0.11 mg/dL (0.00-0.30); Calcium,Total 9.5 mg/dL (8.5-10.1); Chloride 109 mmol/L (98-107); Cholesterol 202 mg/dL (200); Creatinine, Serum 0.99 mg/dL (0.55-1.02); EST Glomerular Filtration Rate 60 mL/min (>60); Est Glom Filt Rate - Afr Amer 72 mL/min (>60); Globulin 3.8 g/dL (2.2-4.2); Glucose 94 mg/dL (74-106); High Density Lipoprotein 77 mg/dL; Potassium 4.4 mmol/L (3.5-5.1); Protein, Total 7.8 g/dL (6.4-8.2); Sodium Level 140 mmol/L (136-145); Triglycerides 264 mg/dL; Very Low Density Lipoprotein 53 mg/dL (5-40)
== END | disposition home or self-care (01) ==
LOC: LAB 13:41
PROVIDERS: PCP Family Medicine; Referring Provider Internal Medicine Cardiovascular Disease; Visit Provider Internal Medicine Cardiovascular Disease
DX: E78.2 Mixed hyperlipidemia (principal)
CPT/HCPCS: 36415; 80048; 80061; 80076

== ENCOUNTER → 2024-03-13 | Outpatient (CLI) | payer MEDICARE, OTHER, SELFPAY ==
--- NOTE | 2024-03-13 13:28 | RAD_ITS ---
HISTORY: JAW PAIN TECHNIQUE: X-RAY - XR Mandible Complete Min 4 Views. COMPARISON: None. FINDINGS: No significant air fluid levels in the paranasal sinuses. Symmetrical appearance of the osseous structures without acute fracture or dislocation identified. RAD/Mandible Min 4 Views IMPRESSION: No acute fracture identified. Electronically Signed: Priscila Calvert MD at 14:56 EST ,
== END | disposition home or self-care (01) ==
LOC: MTRAD 13:18
PROVIDERS: PCP Family Medicine; Referring Provider Family Medicine; Visit Provider Family Medicine
DX: R68.84 Jaw pain (principal)
CPT/HCPCS: 70110

== ENCOUNTER → 2024-05-07 | Outpatient (CLI) | payer MEDICARE, OTHER, SELFPAY ==
--- NOTE | 2024-05-07 13:09 | ECHOD_ITS ---
Reason For Study: CAD/ASHD Procedure This was a 2D Doppler, Color Flow transthoracic echocardiogram. Exam performed in department. Left Ventricle Normal LV size. Left ventricular systolic function is normal. The left ventricular ejection fraction is 65 %. No regional wall motion abnormalities noted. Right Ventricle Normal RV size. Normal systolic function. Atria Normal left atrium. Normal right atrium. Mitral Valve Normal mitral valve. Tricuspid Valve Normal tricuspid valve. Aortic Valve Trisinus/trileaflet aortic valve. Pulmonic Valve Normal pulmonic valve. Great Vessels Normal aortic root. The pulmonary artery is normal size. Inferior vena cava collapse with respiration. Pericardium/Pleural No pericardial effusion. MMode/2D Measurements & Calculations LVIDd: 4.6 cm IVSd: 1.1 cm Ao root diam: 3.5 cm LVIDs: 2.8 cm LVPWd: 0.99 cm RVDd: 3.6 cm FS: 38.6 % _ LAV(MOD-bp): 49.9 ml LVAd ap4: 23.3 cm2 SV(MOD-sp4): 44.4 ml LAV(MOD-bp) Indexed: 26.2 ml/m2 LVLd ap4: 6.9 cm SI(MOD-sp4): 23.3 ml/m2 LAV(MOD-sp2): 53.5 ml EDV(MOD-sp4): 67.1 ml LAV(MOD-sp4): 46.3 ml EDV(sp4-el): 66.7 ml LVAs ap4: 12.6 cm2 LVLs ap4: 5.8 cm ESV(MOD-sp4): 22.7 ml ESV(sp4-el): 23.1 ml EF(MOD-sp4): 66.1 % EF(sp4-el): 65.3 % _ SV(sp4-el): 43.6 ml LA A4 area: 17.6 cm2 LA dimension(2D): 4.2 cm _ RA A4 area: 13.0 cm2 TAPSE: 1.9 cm Time Measurements MV dec time: 0.28 sec Doppler Measurements & Calculations MV E max blaine: 57.5 cm/sec Lat Peak E' Blaine: 9.2 cm/sec Med Peak E' Blaine: 6.2 cm/sec MV A max blaine: 59.4 cm/sec E/E' lat: 6.3 E/E' med: 9.3 MV E/A: 0.97 _ MV V2 max: 71.4 cm/sec MV P1/2t max blaine: 71.4 cm/sec Ao V2 max: 101.4 cm/sec MV max P.0 mmHg MV P1/2t: 94.6 msec Ao max P.1 mmHg MV V2 mean: 40.3 cm/sec Ao V2 mean: 72.6 cm/sec MV mean P.75 mmHg MV dec slope: 221.1 cm/sec2 Ao mean P.3 mmHg MV V2 VTI: 25.2 cm MVA(P1/2t): 2.3 cm2 Ao V2 VTI: 21.3 cm AV (velocity ratio): 1.1 _ LV V1 max: 97.4 cm/sec PA V2 max: 78.2 cm/sec TR max blaine: 186.0 cm/sec LV V1 max P.8 mmHg PA V2 mean: 52.9 cm/sec TR max P.8 mmHg LV V1 mean P.8 mmHg LV V1 mean: 61.7 cm/sec LV V1 VTI: 23.1 cm ECHO/Echo Complete Interpretation Summary Normal LV size. Left ventricular systolic function is normal. The left ventricular ejection fraction is 65 %. Structurally normal valves. Ordering Physician: Dereck Sterling Referring Physician: Dereck Sterling Performed By: Davide Parikh RCS
== END | disposition home or self-care (01) ==
LOC: CVS 13:02
PROVIDERS: PCP Family Medicine; Referring Provider Internal Medicine Cardiovascular Disease; Visit Provider Internal Medicine Cardiovascular Disease
DX: I25.10 Atherosclerotic heart disease of native coronary artery without angina pectoris (principal)
CPT/HCPCS: 93306

== ENCOUNTER → 2024-07-03 | Outpatient (CLI) | payer MEDICARE, OTHER, SELFPAY ==
[2024-07-03 18:01] LABS: Absolute Lymphocyte Count 1.66 X10^3/uL (0.83-4.51); Basophil# 0.06 X10^3/uL; Basophil% 1.4 % (0-1); Eosinophil# 0.13 X10^3/uL; Eosinophils% 3.1 % (0-5); Hematocrit 42.5 % (37-47); Lymphocyte # 1.66 X10^3/ul (0.83-4.51); Mean Corp Hgb Conc 35.3 g/dL (32-36); Mean Corpuscular Hgb 32.5 pg (27.0-32.0); Mean Platelet Vol. 9.5 fl (6.2-12.0); Monocyte# 0.36 X10^3/uL; Monocyte% 8.5 % (0-10); NRBC Flagged by Analyzer 0 % (0-5); Neutrophil # 2.04 X10^3/uL (2.7-7.7); Neutrophil % 47.8 % (47-70); Platelet Count 309 K/mm3 (150-450); RBC Distribution Width CV 12.7 % (11.6-14.6); RBC Distribution Width SD 42.7 fl (35.1-43.9); Red Blood Count 4.62 M/mm3 (4.2-5.4); White Blood Count 4.3 K/mm3 (4.4-11.0)
[2024-07-03 18:18] LABS: Hemoglobin A1c 5.9 % (<=5.6)
[2024-07-03 18:22] LABS: ALB/GLOB Ratio 1.5 RATIO (0.9-2.4); AST(SGOT) 21 U/L (<=31); Alanine Aminotransfer ALT/SGPT 18 U/L (<=34); Albumin, Serum 4.7 g/dL (3.4-4.8); Alkaline Phosphatase 91 U/L (35-104); Anion Gap 13 (5-15); BUN 18 mg/dL (4-19); BUN/Creat Ratio 18.9 RATIO (10-20); Carbon Dioxide 22.5 mmol/L (21.0-32.0); Chloride 104 mmol/L (98-108); Creatinine, Serum 0.97 mg/dL (0.70-1.20); EST Glomerular Filtration Rate 64 (>60); Globulin 3.1 g/dL (2.2-4.2); Glucose 90 mg/dL (70-99); Potassium 4.2 mmol/L (3.3-5.1); Protein, Total 7.8 g/dL (5.9-8.4); Sodium Level 139 mmol/L (133-145)
== END | disposition home or self-care (01) ==
LOC: BFHLAB 14:49
PROVIDERS: PCP Family Medicine; Visit Provider Family Medicine
DX: I25.10 Atherosclerotic heart disease of native coronary artery without angina pectoris (principal); R73.01 Impaired fasting glucose
CPT/HCPCS: 36415; 80053; 83036; 85025

== ENCOUNTER → 2024-07-29 | Outpatient (CLI) | payer MEDICARE, OTHER, SELFPAY ==
--- NOTE | 2024-07-29 15:23 | BI_ITS ---
EXAM: SCRN MAMM (CAD)W/SARBJIT BILAT 07/29/2024 CLINICAL HISTORY: F, Age 69 y/o , SCREENING TECHNIQUE: Bilateral screening digital breast tomosynthesis with 2D and 3D images. Computer aided detection. COMPARISON: Prior exam(s) dated 04/11/2023, 04/14/2021. FINDINGS: TISSUE DENSITY: The breast tissue is composed of scattered area of fibroglandular density. Bilateral Breast Mammographic Findings: No significant masses, calcifications or other abnormalities are identified. BI/SCRN MAMM (CAD)W/SARBJIT BILAT IMPRESSION: Right Breast: BIRADS 1 NEGATIVE. Left Breast: BIRADS 1 NEGATIVE. OVERALL FINAL ASSESSMENT: BIRADS 1 NEGATIVE. RECOMMENDATION: Routine annual follow-up in 1 Year A letter with findings and recommendations will be mailed to the patient. Reading Location: [facility]
--- NOTE | 2024-07-29 15:44 | BD_ITS ---
PROCEDURE: DEXA BONE DENSITY STUDY 07/29/2024 REASON FOR EXAM: Osteoporosis screening F, age 69 y/o . TECHNIQUE: DXA scan of sites with data reported below. Scanner utilized: Hologic. REFERENCE LINKS: ISCD Adult Positions COMPARISON: April 14, 2021 FINDINGS: BMD and T-SCORES Lumbar spine: 0.906 g/cm2, T-score -1.3 Levels: L1 through L4 Change from prior: 4.7%. Left femoral neck: 0.507 g/cm2, T-score -3.1 Femoral neck comparison data not recommended for monitoring change. Prior T-score -3.0 Left total hip: 0.717 g/cm2, T-score -1.8 Change from prior: 9.4%. Right femoral neck: 0.644 g/cm2, T-score -1.8 Femoral neck comparison data not recommended for monitoring change. Prior T-score -2.2 Right total hip: 0.697 g/cm2, T-score -2.0 Change from prior: 2.2%. The World Health Organization has defined the following categories based on bone density: Normal bone density: T-score equal to or greater than -1.0 Osteopenia: T-score between -1.0 and -2.5 Osteoporosis: T-score equal to or less than -2.5 FRAX (or Comparable) Fracture Risk Assessment: 10 Year Probability of Fracture: Major Osteoporotic Fracture: 17% Hip Fracture: 2.4% (Note: FRAX is not to be reported in setting of normal range bone density, osteoporosis on DEXA, known history of osteoporosis, prior osteoporotic hip or vertebral fracture, or for any patient undergoing pharmacological treatment for bone loss.) The National Osteoporosis Foundation (NOF) recommends pharmacological treatment for patients with a FRAX 10-year risk of 3% or higher for a hip fracture, or 20% or higher for a major osteoporotic fracture, to prevent osteoporosis and reduce fracture risk. BD/Dexa Bone Density Study IMPRESSION: OSTEOPOROSIS. Recommend follow-up in 2 years. Reading Location: [facility]
== END | disposition home or self-care (01) ==
LOC: OPBI 15:20
PROVIDERS: PCP Family Medicine; Referring Provider Family Medicine; Visit Provider Family Medicine
DX: Z12.31 Encounter for screening mammogram for malignant neoplasm of breast (principal); M85.80 Other specified disorders of bone density and structure, unspecified site; Z79.83 Long term (current) use of bisphosphonates
CPT/HCPCS: 77063; 77067; 77080

== ENCOUNTER → 2024-11-18 | Outpatient (CLI) | payer MEDICARE, OTHER, SELFPAY | END | disposition home or self-care (01) | LOC: LABSPEC 17:07 | PROVIDERS: PCP Family Medicine; Visit Provider Family Medicine | DX: R82.90 Unspecified abnormal findings in urine (principal) | CPT/HCPCS: 87086; 87088; 87186 ==

== ENCOUNTER → 2024-12-30 | Outpatient (CLI) | payer MEDICARE, OTHER, SELFPAY ==
--- OUTSIDE RECORDS SUMMARY | 2024-10-25 08:29 | XMS RPT_ITS ---
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 Author Type: Physician Rn Peritoneal Dialysis Type: Progress Notes Filed: 10/25/2024 09:00 Note Text: URGENT CARE ABDULAZIZ Bourgeois is a 69 year old female. Patient presents with: Trauma: Bite on L foot, swelling, warmth, redness, wasp sting, x 2 days Patient is a 69-year-old female who complains of swelling and itching to the skin of her dorsal left foot secondary to bee sting injury that she sustained on , 23 October 2024. Patient reports that she did see the bee sting occur and reports that her current symptoms are typical of her previous bee sting reactions. Patient has been taking Zyrtec 10 mg as well as applying topical [id number] medications with no improvement in her symptoms. Patient clearly denies facial swelling, dysphagia, dyspnea, wheezing or other symptoms. Trauma Review of Systems Skin: Swelling and Itching to Left Foot All other systems reviewed and are negative. Objective BP 146/91 Pulse 64 Temp 36 ?C (96.8 ?F) Resp 20 Wt 81 kg (178 lb 9.2 oz) LMP 02/07/2006 SpO2 98% BMI 28.82 kg/m? Physical Exam Vitals and nursing note reviewed. Constitutional: Appearance: Normal appearance. She is normal weight. HENT: Head: Normocephalic and atraumatic. Nose: Nose normal. Mouth/Throat: Mouth: Mucous membranes are moist. Pharynx: Oropharynx is clear. Eyes: Extraocular Movements: Extraocular movements intact. Conjunctiva/sclera: Conjunctivae normal. Pupils: Pupils are equal, round, and reactive to light. Cardiovascular: Rate and Rhythm: Normal rate. Pulses: Normal pulses. Pulmonary: Effort: Pulmonary effort is normal. Breath sounds: Normal breath sounds. Musculoskeletal: General: Swelling present. No tenderness, deformity or signs of injury. Normal range of motion. Cervical back: Normal range of motion and neck supple. Skin: General: Skin is warm and dry. Capillary Refill: Capillary refill takes less than 2 seconds. Findings: Erythema present. No bruising. Comments: Moderate edema is noted to the lateral aspect dorsal left foot with mild erythema. Skin blanches immediately. There is no evidence of cellulitis, induration or fluctuance. No pustules, vesicles or other skin lesions are noted. MSP to the left toes is intact and patient demonstrates full range of motion. Gait and station is unremarkable. Exam the left ankle is unremarkable. Neurological: General: No focal deficit present. Mental Status: She is alert and oriented to person, place, and time. Psychiatric: Mood and Affect: Mood normal. Behavior: Behavior normal. Thought Content: Thought content normal. Judgment: Judgment normal. MDM Physical exam findings as noted above. Patient was provided with a prescription for prednisone 20 mg and advised to continue taking Zyrtec until resolution of her symptoms. Supportive care was discussed and patient verbalizes clear understanding of same. CLINICAL IMPRESSION: Localized Allergic Reaction to Bee Sting Dorsal Lateral Left Foot ASSESSMENT/PLAN: 1. Bee sting reaction, accidental or unintentional, initial encounter - ICD9: 989.5, E905.3, ICD10: T63.441A - PREDNISONE 20 MG TABLET MDM Risk of Complications, Morbidity, and/or Mortality Presenting problems: low Diagnostic procedures: low Management options: MELANIE Jim Observed: 10/25/2024 8:30 AM Status: COMPLETED Source: [facility] Office Visit ([facility]) EMILIA BOURGEOIS ([id number]) 1955 F Date Time Provider Department 10/25/24 8:30 AM KEVIN LEAL During your visit today, we recorded the following information about you: Temperature Pulse Respiration Blood pressure 96.8 degrees 64/minute 20/minute 146/91 Weight 81 kg Kevin Leal PA-C 10/25/2024 9:00 AM Signed URGENT CARE ABDULAZIZ Subjective Emilia Bourgeois is a 69 year old female. Patient presents with: Trauma: Bite on L foot, swelling, warmth, redness, wasp sting, x 2 days Patient is a 69-year-old female who complains of swelling and itching to the skin of her dorsal left foot secondary to bee sting injury that she sustained on , 23 October 2024. Patient reports that she did see the bee sting occur and reports that her current symptoms are typical of her previous bee sting reactions. Patient has been taking Zyrtec 10 mg as well as applying topical [id number]-drcrhvm medications with no improvement in her symptoms. Patient clearly denies facial swelling, dysphagia, dyspnea, wheezing or other symptoms. Trauma Review of Systems Skin: Swelling and Itching to Left Foot All other systems reviewed and are negative. Objective BP 146/91 Pulse 64 Temp 36 ?C (96.8 ?F) Resp 20 Wt 81 kg (178 lb 9.2 oz) LMP 02/07/2006 SpO2 98% BMI 28.82 kg/m? Physical Exam Vitals and nursing note reviewed. Constitutional: Appearance: Normal appearance. She is normal weight. HENT: Head: Normocephalic and atraumatic. Nose: Nose normal. Mouth/Throat: Mouth: Mucous membranes are moist. Pharynx: Oropharynx is clear. Eyes: Extraocular Movements: Extraocular movements intact. Conjunctiva/sclera: Conjunctivae normal. Pupils: Pupils are equal, round, and reactive to light. Cardiovascular: Rate and Rhythm: Normal rate. Pulses: Normal pulses. Pulmonary: Effort: Pulmonary effort is normal. Breath sounds: Normal breath sounds. Musculoskeletal: General: Swelling present. No tenderness, deformity or signs of injury. Normal range of motion. Cervical back: Normal range of motion and neck supple. Skin: General: Skin is warm and dry. Capillary Refill: Capillary refill takes less than 2 seconds. Findings: Erythema present. No bruising. Comments: Moderate edema is noted to the lateral aspect dorsal left foot with mild erythema. Skin blanches immediately. There is no evidence of cellulitis, induration or fluctuance. No pustules, vesicles or other skin lesions are noted. MSP to the left toes is intact and patient demonstrates full range of motion. Gait and station is unremarkable. Exam the left ankle is unremarkable. Neurological: General: No focal deficit present. Mental Status: She is alert and oriented to person, place, and time. Psychiatric: Mood and Affect: Mood normal. Behavior: Behavior normal. Thought Content: Thought content normal. Judgment: Judgment normal. MDM Physical exam findings as noted above. Patient was provided with a prescription for prednisone 20 mg and advised to continue taking Zyrtec until resolution of her symptoms. Supportive care was discussed and patient verbalizes clear understanding of same. CLINICAL IMPRESSION: Localized Allergic Reaction to Bee Sting Dorsal Lateral Left Foot ASSESSMENT/PLAN: 1. Bee sting reaction, accidental or unintentional, initial encounter - ICD9: 989.5, E905.3, ICD10: T63.441A - PREDNISONE 20 MG TABLET MDM Risk of Complications, Morbidity, and/or Mortality Presenting problems: low Diagnostic procedures: low Management options: geraldo Leal PA-C Allergies As of Date: 10/25/2024 Noted Allergy Reaction ERYTHROMYCIN 11/16/2004 16 - Unknown Date Reviewed: 10/25/2024 Reviewed by: Jil Dutta LPN - Fully Assessed Reason for Visit: Trauma [112] Cmt: Bite on L foot, swelling, warmth, redness, wasp sting, x 2 days Primary Visit Diagnosis:Bee sting reaction, accidental or unintentional, initial encounter [T63.441A] Order(s):predniSONE (DELTASONE) 20 mg tabletTake 1 tablet by mouth two times a day for 5 days.Disp: 10 tabletRfl: 0 Prescriptions as of 10/25/2024 - atorvastatin (LIPITOR) 80 mg tablet Take 80 mg by mouth once daily. - Cholecalciferol, Vitamin D3, 125 mcg (5,000 unit) cap Take 5,000 Units by mouth once daily. - Estradiol (VAGIFEM) 10 mcg vaginal tablet Use 10 mcg vaginally two times a week. - fexofenadine (SABAS) 60 mg tablet Take 60 mg by mouth as needed (seasonal allegies). - omega-3 fatty acids/fish oil (FISH OIL-OMEGA-3 FATTY ACIDS) 300-1,000 mg cap Take 2 g by mouth once daily. - predniSONE (DELTASONE) 20 mg tablet Take 1 tablet by mouth two times a day for 5 days. - buPROPion HCL 450 mg Tb24 Take 450 mg by mouth once daily. - clopidogrel (PLAVIX) 75 mg tablet Take 75 mg by mouth once daily. - aspirin, enteric coated (ASPIRIN, ENTERIC COATED) 81 mg EC tablet Take 81 mg by mouth once daily. - multivitamin/iron/folic acid (CENTRUM WOMEN ORAL) Take by mouth once daily. - albuterol HFA (VENTOLIN HFA) 90 mcg/actuation inhaler Inhale 2 Puffs as instructed as needed. - gabapentin (NEURONTIN) 300 mg capsule Take 1 capsule by mouth three times daily for 90 days. - ibuprofen 200 mg tablet Take 1-2 tablets by mouth every 4 hours as needed. FOR PAIN. - fluticasone (FLONASE) 50 mcg/Actuation NASAL nasal spray Use 1 Terry in each nostril daily at bedtime. Use as directed. Medication notes this encounter ASPIRIN 81 MG TABLET,DELAYED RELEASE >> Jil Dutta LPN 10/25/2024 8:47 AM >> JIL DUTTA Sat Oct 25, 2024 8:47 AM CENTRUM WOMEN PO >> Jil Dutta LPN 10/25/2024 8:46 AM >> JIL DUTTA Sat Oct 25, 2024 8:46 AM Problem List As Of Date 10/25/2024 Noted Resolved ALLERGIC RHINITIS NOS [J30.9] 11/16/2004 IRREGULAR MENSES [N92.6] 01/10/2005 05/18/2009 Intrauterine Synechiae [N85.6] 02/13/2006 05/18/2009 Postmenopausal Bleeding [N95.0] 02/13/2006 05/18/2009 Symptomatic Menopausal or Female Climacteric St*04/17/2006 05/18/2009 Routine Gynecological Examination [Z01.419] 05/18/2009 Class: Chronic Fam Hx-Ischem Heart Disease [Z82.49] 05/18/2009 Osteopenia [M85.80] 05/18/2009 Hyperlipidemia [E78.5] 05/18/2009 Vitamin D Deficiency [E55.9] 05/20/2009 Pain in joint, lower leg [M25.569] 04/27/2011 Biliary dyskinesia [K82.8] 09/17/2012 Prescriptions ordered this encounter Disp Refills Start End PREDNISONE 20 MG TABLET 10 t* 0 10/25/2024 10/30/2024 Route: PO Sig: Take 1 tablet by mouth two times a day for 5 days. Medications Discontinued During This Encounter Prescriptions - Fexofenadine-Pseudoephedrine (SABAS-D 24 HOUR) 180-240 mg per 24 hr tablet (Discontinued) Take 1 tablet by mouth as needed. - atorvastatin (LIPITOR) 80 mg tablet (Discontinued) Take 80 mg by mouth daily at bedtime. Level of Service: OFFICE/OUTPATIENT [facility] 30 MINUTES [60816] Encounter Status:Closed by CLUTTER, KEVIN on 10/25/24 ALLERGIES DATE TYPE / CODE NAME / CODE REACTION SEVERITY SOURCE 11/16/2004 DRUG/[id number](SNOM ED CT) ERYTHROMYCIN UNKNOWN [facility] ENCOUNTERS ADMIT/DISCHARGE ACCOUNT NUMBER ADMITTING ENCOUNTER CLASS LOC ATION SOURCE 10/25/2024/ [id number] [facility] ing[facility]HERBIE [facility] PAYERS ENCOUNTER GUARANTOR PAYER SUBSCRIBER SOURCE 10/25/2024 Primary Insurance:MEDICARE A AND BPolicy Number: [id number] Date:[id number] Name:Sommer CASTILLOOB: [id number] [place] [id number] [place] [address]
--- NOTE | 2024-12-30 19:14 | STRESSREP ---
Stress Test Report Exercise myocardial perfusion stress test. 69-year-old woman with a history of chest pain. Stress protocol: Resting EKG demonstrates sinus bradycardia rhythm with a rate of 49 bpm resting blood pressure is 138/80 mmHg. The patient exercised according to the regular Brad protocol for a total duration of 6-1/2 minutes attaining a maximum heart rate of 146 bpm which was 95% of maximum predicted heart rate; the maximum workload was 8.5 metabolic equivalents. At rest there were no ST or T wave changes noted to suggest ischemia and at peak exercise upsloping ST changes only were noted which did not meet the criteria for ischemia. No clinical angina was noted the test was terminated due to the target heart rate being achieved/fatigue. The peak blood pressure was 152/72 mmHg. Rate-pressure product was 17,005. Myocardial perfusion protocol. 11.8 mCi of technetium 99m sestamibi was injected at rest. The patient exercised according to regular Brad protocol for total duration of 6-1/2 minutes and at peak exercise 34.6 mCi of technetium 99m sestamibi was injected stress images were obtained stress and rest images were reconstructed in comparing the short axis vertical long and horizontal long axis. Gated images were also obtained. Perfusion SPECT analysis: Review of the stress images demonstrate normal uptake of tracer noted in all areas of the myocardium. The resting images similarly demonstrate normal uptake of tracer noted in all areas of the myocardium. No areas of reversibility are noted to suggest ischemia no previous infarct was noted. Gated SPECT analysis: The gated ejection fraction is 85%. Conclusion: Normal exercise myocardial perfusion stress test at a moderate workload.
== END | disposition home or self-care (01) ==
LOC: CVS 07:08
PROVIDERS: PCP Family Medicine; Referring Provider Family Medicine; Visit Provider Family Medicine
DX: I25.10 Atherosclerotic heart disease of native coronary artery without angina pectoris (principal); Z95.5 Presence of coronary angioplasty implant and graft; R07.9 Chest pain, unspecified
CPT/HCPCS: 78452; 93017; A9500; A4216